=== PATIENT | female | born 1955 | race Caucasian/White ===

== ENCOUNTER 2017-03-19 12:54 | Emergency (ER) | payer OTHER, MEDICAID ==
[~2017-03-19] VITALS: Ht 162.6 cm; Wt 50.0 kg
[~2017-03-19 12:54] MED LIST: ADVAIR DISKUS IN; ALBUTEROL SUL0.083 % IN; ALPRAZOLAM0.5 M2 PO; AMBIEN10 MG PO; CIPRO500 MG PO; COMBIVENT IN; COMBIVENT INH; DILANTIN100 MG OR; FLEXERIL OR; FLOVENT HFA220 MCG IN; LAMICTAL100 M1 PO; LIPITOR20 MG PO; LORTAB 5 OR; LOTENSIN HCT1 TA1 PO; NAPROSYN500 MG OR; NAPROSYN500 MG PO; NICODERM C14 MG/24 H TD; NIFEDIPINE30 MG PO; NORCO1 TA1 PO; ONDANSETRON4 MG OR; PAROXETINE HCL10 MG PO; PAROXETINE10 MG PO; PAROXETINE20 MG PO; PREDNISONE10 MG PO; PREDNISONE20 MG PO; PROAIR HFA IN; PROVENTIL0.083 % IN; SPIRIVA HANDIHALER IN; ZITHROMAX250 MG PO; ZITHROMAX500 MG PO
[2017-03-19 13:36] LABS: HEMATOCRIT 38.1 % (37.0-47.0); HEMOGLOBIN 12.7 g/dl (12.0-16.0); IMMATURE GRANULOCYTES 1.4 % (0.0-1.0); MEAN CELL VOLUME 92.5 fL CALC (80.0-100.0); MEAN CORPUSCULAR HGB 30.8 pG CALC (26.0-32.0); MEAN CORPUSCULAR HGB CONC 33.3 g/L CALC (32.0-36.0); NEUT# 3.58 thou/uL (2.00-7.15); RED BLOOD COUNT 4.12 mill/uL (4.20-5.60); RED CELL DISTRI WIDTH 12.5 % (11.5-15.5)
[2017-03-19 15:00] LABS: AMYLASE 97 u/l (30-110); LIPASE 98 u/l (23-300)
[2017-03-19 15:13] LABS: MYOGLOBIN 33 ng/mL (0 - 62)
[2017-03-19 15:21] LABS: ALBUMIN 4.7 g/dL (3.2-5.0); ALKALINE PHOSPHATASE 107 u/l (38-126); ANION GAP 19 (6-22 (CALC)); BILIRUBIN, TOTAL 0.5 mg/dL (0.0-1.4); BUN 6 mg/dL (7-17); BUN/CREATININE RATIO 13 (12-20 (CALC)); CALCIUM 10.8 mg/dL (8.4-10.2); CARBON DIOXIDE 26 mmol/l (22-30); CHLORIDE 98 mmol/l (95-108); CREATININE 0.4 mg/dL (0.5-1.0); GFR > 60 ML/MIN (>=60 (CALC)); GFR FOR AFR.AMER. > 60 ML/MIN (>=60 (CALC)); GLUCOSE 108 mg/dL (65-105); POTASSIUM 3.6 mmol/l (3.5-5.1); SGOT/AST 31 u/l (14-36); SGPT/ALT 28 u/l (9-52); SODIUM 140 mmol/l (137-146); TOTAL PROTEIN 9.1 g/dL (6.3-8.2)
[2017-03-19 16:16] LABS: URINE BILIRUBIN - DIPSTICK NEGATIVE (NEGATIVE); URINE BLOOD DIPSTICK NEGATIVE (NEGATIVE); URINE CLARITY CLEAR; URINE COLOR YELLOW; URINE GLUCOSE - DIPSTICK NEGATIVE (NEGATIVE); URINE KETONE NEGATIVE (NEGATIVE); URINE LEUK ESTERASE TRACE (NEGATIVE); URINE NITRITE - DIPSTICK NEGATIVE (Negative); URINE PH 7.5 (4.5-8.0); URINE PROTEIN - DIPSTICK NEGATIVE (NEG-TRACE); URINE SPECIFIC GRAVITY 1.015; URINE UROBILINOGEN - DIPSTICK 0.2 E.U./dL (0.2)
[2017-03-19] MEDS ORDERED: ZOFRAN4 MG/TAB PO (18:03)
[2017-03-19 18:05] VITALS: BP 142/70
[2017-03-20] MEDS ORDERED: PHENERGAN25 MG/TAB PO (10:25)
== END 2017-03-19 18:21 | disposition home or self-care (01) | DRG 392 ==
LOC: ED 12:54
PROVIDERS: Emergency Medicine
DX: R11.2 Nausea with vomiting, unspecified (principal); R10.9 Unspecified abdominal pain; Z98.890 Other specified postprocedural states; R94.31 Abnormal electrocardiogram [ECG] [EKG]
CPT/HCPCS: J2060; Q9967

== ENCOUNTER 2017-10-01 12:22 | Inpatient (IN) | payer OTHER, MEDICAID ==
[~2017-10-01] VITALS: Ht 162.6 cm; Wt 48.7 kg
[~2017-10-01 12:22] MED LIST changes: +PHENERGAN25 MG/TAB PO; +ZOFRAN4 MG/TAB PO
--- NOTE | 2017-10-01 12:32 | NUR ---
PATIENT TO ROOM VIA EMS AND PHYSICIAN AT [facility] FOR EVALUATION
[2017-10-01 13:20] LABS: HEMATOCRIT 46.6 % (37.0-47.0); HEMOGLOBIN 15.2 g/dl (12.0-16.0); IMMATURE GRANULOCYTES 1.6 % (0.0-1.0); MEAN CELL VOLUME 95.9 fL CALC (80.0-100.0); MEAN CORPUSCULAR HGB 31.3 pG CALC (26.0-32.0); MEAN CORPUSCULAR HGB CONC 32.6 g/L CALC (32.0-36.0); NEUT# 13.06 thou/uL (2.00-7.15); RED BLOOD COUNT 4.86 mill/uL (4.20-5.60); RED CELL DISTRI WIDTH 12.9 % (11.5-15.5)
[2017-10-01 13:21] LABS: ALBUMIN 4.5 g/dL (3.2-5.0); ALKALINE PHOSPHATASE 96 u/l (38-126); ANION GAP 15 (6-22 (CALC)); BILIRUBIN, TOTAL 0.6 mg/dL (0.0-1.4); BUN 12 mg/dL (7-17); BUN/CREATININE RATIO 25 (12-20 (CALC)); CARBON DIOXIDE 33 mmol/l (22-30); CHLORIDE 96 mmol/l (95-108); CREATININE 0.5 mg/dL (0.5-1.0); GFR > 60 ML/MIN (>=60 (CALC)); GFR FOR AFR.AMER. > 60 ML/MIN (>=60 (CALC)); GLUCOSE 137 mg/dL (65-105); POTASSIUM 4.2 mmol/l (3.5-5.1); SGOT/AST 40 u/l (14-36); SGPT/ALT 45 u/l (9-52); SODIUM 140 mmol/l (137-146); TOTAL PROTEIN 7.4 g/dL (6.3-8.2)
[2017-10-01 13:33] LABS: MYOGLOBIN 27 ng/mL (0 - 62)
--- NOTE | 2017-10-01 13:58 | NUR ---
PT AWARE OF PENDING ADMISSION, RESTS IN THE STRETCHER IN NO ACUTE DISTRESS.
--- NOTE | 2017-10-01 15:47 | NUR ---
PT AWARE OF PENDING ADMISSION AND NEED TO HOLD IN ER UNTIL SHIFT CHANGE. NO DISTRESS NOTED. PT STATES PAIN TO RIGHT SHOULDER IS ZERO AFTER TRAMADOL.
--- NOTE | 2017-10-01 16:37 | NUR ---
GIVEN DR ROCA'S EVAL, PT TO GO TO ICU INSTEAD OF MS.
--- NOTE | 2017-10-01 17:17 | NUR ---
REPORT PROVIDED TO RAMO IN ICU, TO UNIT SOON.
--- NOTE | 2017-10-01 17:29 | NUR ---
Patient received Pneumovax(PPSV-23) IN 10/2011. It is not indicated for her to receive another dose until 67 years of age.
--- NOTE | 2017-10-01 17:30 | NUR ---
PT TAKEN TO ICU-7 WITHOUT INCIDENT.
[2017-10-01 17:45] VITALS: BP 153/76
--- NOTE | 2017-10-01 17:45 | NUR ---
PT ARRIVED TO THE UNIT VIA STRETCHER AND ONE PERSON ASSISTANCE FROM ER. PT HR IS 134. PT HAS VISIBLE SOB, WITH PURSED LIP BREATHING. PT HAS TREMORS R/T MULTIPLE BREATHING TREATMENTS PRIOR TO ARRIVAL. PT IS ALERT AND ORIENTATED. ASSESSMENT PERFORMED. PT ORIENTATED TO ROOM, RIGHTS AND RESPONSIBILITIES. CALL LIGHT WITHIN REACH. INSTRUCTED PT TO CALL FOR ASSISTANCE, PT VERBALIZES UNDERSTANDING. IV INFUSING THROUGH PATENT IV SITE.
--- NOTE | 2017-10-01 17:45 | NUR ---
Patient consented to receive influenza vaccine. Pt admitted for Acute COPD exacerbation with hypoxis, right maxillary sinusitis and suspected pneumonia. Per provider, patient too ill at this time to receive vaccine. Recommends to receive vaccine after resolution of current acute illness.
[2017-10-01 18:00] VITALS: BP 148/69
[2017-10-01 18:15] VITALS: BP 130/70
[2017-10-01 18:30] VITALS: BP 142/75
--- NOTE | 2017-10-01 18:45 | NUR ---
REPORT FROM Maegan RIOS RN. ASSUMED PT. CARE.
--- NOTE | 2017-10-01 20:05 | NUR ---
PT. FOUND AWAKE, ALERT, ORIENTED X 3. SKIN WARM AND DRY. RESPS EVEN, SHALLOW, UNLABORED. SPO2 IS 98% ON 2L VIA HUMIDIFIED NASAL CANNULA. FAMILY OUT FROM BEDSIDE AT THIS TIME. HR 120'S SINUS TACH. BP STABLE. VSS. CALL LIGHT WITHIN REACH. WILL CONTINUE TO MONITOR.
[2017-10-01 21:00] VITALS: BP 125/78
--- NOTE | 2017-10-01 21:15 | NUR ---
PT. MEDICATED PER PHYSICIAN ORDERS. NO COUGHING EPISODES NOTED AT THIS TIME. SPO2 REMAINS STABLE ON 2L NC. PT. STATES SHE BELIEVES THE STEROIDS HAVE HELPED. STATES MUCH IMPROVED WORK OF BREATHING. LUNG SOUNDS CLEAR, BUT SLIGHTLY DIMINISHED AT THIS TIME BILAT TO ALL LUNG CAI. WILL CONTINUE TO MONITOR.
[2017-10-01 23:00] VITALS: BP 113/59
--- NOTE | 2017-10-01 23:15 | NUR ---
PT. RESTING WITH EYES CLOSED. CALL LIGHT REMAINS WITHIN REACH. STABLE. VSS. NO DISTRESS NOTED. WILL CONTINUE TO ASSESS.
[2017-10-02] VITALS (9 sets, daily range): BP systolic 108–142; BP diastolic 64–82
--- NOTE | 2017-10-02 00:37 | NUR ---
PT. WATCHING TELEVISION AT THIS TIME IN NO DISTRESS. MEDICATED PER PHYSICIAN ORDERS. REMAINS SINUS TACH ON THE MONITOR 106. BP STABLE. SPO2 IS 95% ON 2L NC.
--- NOTE | 2017-10-02 02:59 | NUR ---
PT. RESTING ON LT. SIDE AT THIS TIME. RESPS SHALLOW WITH EXPIRATORY WHEEZES NOTED. HR IMPROVED. SR 99 AT THIS TIME. BP STABLE AT 130/73. VOICES NO COMPLAINTS OR NEEDS AT THIS TIME. CALL LIGHT REMAINS WITHIN REACH.
--- NOTE | 2017-10-02 04:30 | NUR ---
PT. AROUSABLE TO LIGHT VERBAL STIMULI. LAB AT BEDSIDE TO DRAW PATIENT. PT. STATES WITH MILD PAIN 3/10 ASKING FOR PAIN MEDICATION. PT. ALSO MEDICATED WITH ANTITUSSIVE PER HER REQUEST. REMAINS STABLE AT THIS TIME. VSS. SPO2 IS 94% ON 2L NC. CALL LIGHT REMAINS WITHIN REACH. PT. UPDATED ON PLAN OF CARE AND NEXT MED DOSING.
[2017-10-02 04:39] LABS: HEMATOCRIT 40.7 % (37.0-47.0); HEMOGLOBIN 13.3 g/dl (12.0-16.0); MEAN CELL VOLUME 95.3 fL CALC (80.0-100.0); MEAN CORPUSCULAR HGB 31.1 pG CALC (26.0-32.0); MEAN CORPUSCULAR HGB CONC 32.7 g/L CALC (32.0-36.0); RED BLOOD COUNT 4.27 mill/uL (4.20-5.60); RED CELL DISTRI WIDTH 12.9 % (11.5-15.5)
[2017-10-02 04:54] LABS: ANION GAP 13 (6-22 (CALC)); BUN 18 mg/dL (7-17); BUN/CREATININE RATIO 39 (12-20 (CALC)); CALCIUM 10.5 mg/dL (8.4-10.2); CARBON DIOXIDE 34 mmol/l (22-30); CHLORIDE 96 mmol/l (95-108); CREATININE 0.5 mg/dL (0.5-1.0); GFR > 60 ML/MIN (>=60 (CALC)); GFR FOR AFR.AMER. > 60 ML/MIN (>=60 (CALC)); GLUCOSE 157 mg/dL (65-105); POTASSIUM 4.3 mmol/l (3.5-5.1); SODIUM 139 mmol/l (137-146)
--- NOTE | 2017-10-02 06:05 | NUR ---
PT. TO BEDSIDE COMMODE AND BACK TO BED. PT. SEVERELY DYSPNEIC. SPO2 DROPPED TO MID 70'S, HR ELEVATED TO 155, AND BP INCREASED TO 200/110. APPCOX 10 MINUTES AFTER BEING BACK IN BED, HR DECREASED TO 120, AND BP DECREASED TO 150/90. PT. ENCOURAGED TO TAKE BREATHS IN THROUGH THE NOSE AND OUT THROUGH THE MOUTH. SPO2 IS 91% APPROX 10 MINUTES AFTER BEING ASSISTED BACK TO BED.
--- NOTE | 2017-10-02 06:50 | NUR ---
DAUGHTER AT BS, HOME MEDICATON LAMICTAL BROUGHT IN, LABELED AND HOME MEDICATION SHEET FILLED OUT. WILL NOTIFY PHARMACY WHEN DEPARTMENT OPEN.
--- NOTE | 2017-10-02 07:20 | NUR ---
DIETARY NOTIFIED OF DIET ORDER.
--- NOTE | 2017-10-02 07:29 | NUR ---
PT EASILY AWAKENS WITH VOICE. ONCE AWAKE HEART RATE GOES FROM 91-120, PT HAS VISIBLE TREMORS AND INCREASED SOB. DISCUSSION OF PLAN OF CARE GONE OVER. PT URGED TO RESTRICT MOVEMENT AND REST. DISCUSSED POSSIBILITY OF AGUILAR CATHETER, WILL ASK MD, WHEN HE ARRIVES TO UNIT. PT STATES UNDERSTANDING OF CALL LIGHT, AND BED REST FOR NOW. CALL LIGHT WITHIN REACH, INSTRUCTED PT TO CALL FOR ASSISTANCE, STATES UNDERSTANDING.
--- NOTE | 2017-10-02 07:45 | NUR ---
DR. ROCA NOTIFIED, OF SEVERE SEPSIS RISK ON INTERVENTION SCREEN. NO ORDERS GIVEN AT THIS TIME, WILL CONTINUE TO MONITOR, AND NOTIFY IF CHANGES OCCUR.
--- NOTE | 2017-10-02 08:30 | NUR ---
VISITOR IN TO SEE PT AT THIS TIME. PT SAFETY REVIEWED, INSTRUCTED PT TO CALL FOR ASSISTANCE, STATES UNDERSTANDING.
--- NOTE | 2017-10-02 09:35 | NUR ---
AM MEDICATIONS GIVEN AT THIS TIME. PT REFUSING TO HAVE LOVENOX INJECTION. POSSIBLE RISK FOR DVT/CLOT DEVELOPMENT EXPLAINED. PT STATES "DANIEL BEEN OFFERED THOSE BEFORE, AND IM NOT INTERESTED." WILL CONTINUE TO RE-EDUCTATE IF POSSIBLE.
--- NOTE | 2017-10-02 11:30 | NUR ---
LUNCH TRAY DELIVERED TO PT. PT IS RESTIG ON RIGHT SIDE WITH EYES CLOSED. EASILY AWAKENS. TRAY SAT DOWN, PT EASILY AWAKENS WITH QUIET VERBAL COMMANDS. PT STATES "IF YOU COULD JUST LEAVE MY TRAY, IM GOING TO KEEP RESTING." CALL LIGHT WITHIN REACH, DOOR CLOSED. WILL CONTINUE TO MONITOR.
--- NOTE | 2017-10-02 12:05 | NUR ---
PT COMPLIANT WITH USE OF BED BALL. AT REST HR IS 100-105, WITH MINIMAL EXERTION WITH BED BALL, PT HR IS 135-150. PT ALSO REQUESTS THE ASSISTANCE OF FAMILY INSTEAD OF STAFF FOR PRIVACY PURPOSES. RESPECTFULLY GRANTED. AFTER USE OF BEDPAN, PT DOES HAVE SOB, WITH UPPER EXTREMITY TREMORS, USING PURSED LIP BREATHING
--- NOTE | 2017-10-02 13:08 | NUR ---
PT GIVEN SOLU-MEDROL WITH XANAX. PT INFORMED OF TRANSFER TO MED-SURG ROOM 274. STATES UNDERSTANDING, VOICES NO CONCERNS AT THIS TIME. WILL CONTINUE TO UPDATE.
--- NOTE | 2017-10-02 15:47 | NUR ---
PT AWAKE WATCHING TV IN BED, INQUIRING ABOUT TRANSFER TO FLOOR. STATES "ID LIKE TO MAKE A MOVE WHILE MY XANAX IS STILL WORKING WELL, IT DOESNT TAKE MUCH TO FOR ME TO GET WORKED UP." WILL ATTEMPT TO CALL REPORT AT THIS TIME.
--- NOTE | 2017-10-02 15:53 | NUR ---
PT INFORMED OF DELAY OF TRANSFER TO MEDICAL FLOOR, STATES UNDERSTANDING. DENIES NEEDS OR CONCERNS, GIVEN PORTABLE PHONE FOR TELEPHONE CALL. CALL LIGHT WITHIN REACH. INSTRUCTED PT TO CALL FOR ASSISTANCE. STATES UNDERSTANDING
--- NOTE | 2017-10-02 16:39 | NUR ---
ROBITUSSIN WITH CODEINE PROVIDED WITH ABX THERAPY. PT HAVING COUGHING "SPELL." SPO2 DROPS TO 75% AND HR INCREASES TO 145. ONCE COUGHING/SPASM OVER. SPO2 QUICKLY RISES TO TODAYS BASELINE OF 92% HR IS 107.
--- NOTE | 2017-10-02 16:40 | NUR ---
ZITHROMAX INFUSING AT THIS TIME, IV SITE PATENT. CALL LIGHT WITHIN REACH. INSTRUCTED PT TO CALL FOR ASSISTANCE, STATES UNDERSTANDING.
--- NOTE | 2017-10-02 19:00 | NUR ---
REPORT FROM KIMBERLEE RALPH. ASSUMED PT. CARE.
--- NOTE | 2017-10-02 20:15 | NUR ---
PT. FOUND AWAKE, ALERT, ORIENTED X 3. SKIN WARM AND DRY. AFEBRILE. PT. STATES SHE IS FEELING BETTER THIS EVENING. STATES CONTINUES WITH MODERATE-SEVERE EXERTIONAL DYSPNEA. HR AND BP STABLE AT THIS TIME. PT. WITH CLEAR/DIMINISHED LUNG SOUNDS THROUGHOUT. DISTIL PULSES PRESENTS THROUGHOUT. SINUS RHYTHM AT THIS TIME. DENIES COMPLAINTS OR NEEDS. WILL MEDICATE ORDERED. CALL LIGHT REMAINS WITHIN REACH.
--- NOTE | 2017-10-02 23:15 | NUR ---
PT. TO BEDSIDE COMMODE AND THEN BACK TO BED. MODERATE DYSPNEA ON EXERTION. HR ELEVATED TO 110'S. PT. AMBULATED WITHOUT ASSISTANCE. CALL LIGHT REMAINS WITHIN REACH.
[2017-10-03] VITALS (7 sets, daily range): BP systolic 115–140; BP diastolic 60–82
--- NOTE | 2017-10-03 02:56 | NUR ---
PT. RESTING IN BED IN NO DISTRESS. SINUS RHYTHM AT 88. SPO2 IS 93% ON 2L NC. RR OF 25. CALL LIGHT REMAINS WITHIN REACH.
--- NOTE | 2017-10-03 03:30 | NUR ---
PT. WITH COUGHING EPISODES AT THIS TIME. AWAITING CARDINAL TO PROFILE NEW ORDERS. RT CALLED FOR NEB TREATMENT. WILL CONTINUE TO MONITOR.
--- NOTE | 2017-10-03 07:25 | NUR ---
PT RESTING IN BED, WITH HOB ELEVATED, AM ASSESSMENT COMPLETED, SEE INTERVENTIONS, PT ADMITS TO BEING O2 DEPENDENT AT HOME FOR 3-4 YEARS, ALSO ADMITS TO HAVING EXERTIONAL SOB AT HOME WELL, LUNGS ARED VERY DMINSHED WITH EXPIRATORY WHEEZES HEARD THROUGH OUT, O2 ON AT 2L, PT TOLERATING W/O INCINDENT, CURRENTLY HAS VISITORS AT BEDSIDE, OOB EARLIER TO VOID AND TOLERATED/RECOVERY IMPROVED PER REPORT, (HAD BEEN USING BED BALL RELATED TO DEGREE OF SOB AND PROLONGED RECOVERY TIME) SKIN WARM DRY AND INTACT WITH NO BREAKDOWN NOTED, PT STATES SHE HAS HAD A POOR APPETITE, RELATED TO SOB AND "JUST NOT FEELING LIKE EATING" STATES ITS NOT NEW, SAFETY MEASURES REINFORCED, OFFERS NO COMPLAINTS, ENCOURAGED TO CALL FOR ANY NEEDED ASSISTANCE, VERBALIZES UNDERSTANDING. WILL CONTINUE TO MONITOR
--- NOTE | 2017-10-03 08:48 | NUR ---
PT RESTING IN BED, NO CHANGES NOTED, HR FLUCUATES BECOMES MILDLY TACHYCARDIC WITH MINIMAL EXERTION, RECOVERY PERIOD TIMES ARE IMPROVING SLOWLY, TOLERATING STEROID THERAPY W/O INCINDENT, SET UP ASSIST PROVIDED FOR AM MEAL WITH POOR INTAKE NOTED, WILL CONTINUE TO MONITOR
--- NOTE | 2017-10-03 10:19 | NUR ---
AM MEDICATIONS TAKEN EARLIER W/O INCIDENT, REQUESTED CLEAN GOWN CLEAN UP/ADL CARE OFFERED, PT STATES NO MY IS GONNA COME IN LATER AND HELP ME GET CLEANED UP, CALL MURILLO WITHIN REACH, NEB TREATMENT PROVIDED EARLIER BY RT. WILL CONTINUE TO MONITOR
--- NOTE | 2017-10-03 11:25 | NUR ---
AM/ADL CARE PROVIDED WITH SPOUSAL ASSIST (PER PT REQUEST) REFUSES LINEN CHANGE AT THIS TIME DID ASSIST WITH GOWN CHANGE, PT RESTING HR CURRENTLY 139 WITH RECENT EXERTION, ENCOURGAED TO REST/RECOVER, WILL CONTINUE TO MONITOR
--- NOTE | 2017-10-03 16:37 | NUR ---
MEDICATED FOR COUGH, REPORT CALLED TO TOMMIE MOHAN ON MED SURG, ROOM 267 ASSIGNED,
--- NOTE | 2017-10-03 16:44 | NUR ---
PT ARRIVED TO FLOOR VIA BED. PT DENIES PAIN. SOB NOTED WITH MINIMAL EXERTION.PT ORIENTED TO ROOM AND EQUIPMENT. PLAN OF CARE DISCUSSED. REPORTING OF CONCERNS ENCOURAGED. FALL PRECAUTIONS REINFORCED. CALL LIGHT REVIEWED AND IN REACH. PT STATES UNDERSTANDING.
--- NOTE | 2017-10-03 19:00 | NUR ---
RECEIVED CHANGE OF SHIFT REPORT FROM KIMBERLEE REILLY. PATIENT LYING IN BED AND APPEARS NOT TO BE IN ANY APPARENT ACUTE DISTRESS. WILL CONTINUE TO MONITOR.
--- NOTE | 2017-10-04 | NUR ---
PATIENT RESTING QUIETLY IN BED. NO APPARENT ACUTE DISTRESS NOTED. WILL CONTINUE TO MONITOR.
[2017-10-04 00:15] VITALS: BP 117/71
[2017-10-04 04:00] VITALS: BP 126/78
--- NOTE | 2017-10-04 04:00 | NUR ---
NO APPARENT ACUTE CHANGES NOTED IN PATIENT'S CONDITION.
[2017-10-04 07:42] VITALS: BP 152/75
[2017-10-04 07:50] LABS: HEMOGLOBIN 13.3 g/dl (12.0-16.0); MEAN CORPUSCULAR HGB 31.1 pG CALC (26.0-32.0); MEAN CORPUSCULAR HGB CONC 32.4 g/L CALC (32.0-36.0); RED BLOOD COUNT 4.27 mill/uL (4.20-5.60); RED CELL DISTRI WIDTH 12.9 % (11.5-15.5)
[2017-10-04 08:02] LABS: ANION GAP 11 (6-22 (CALC)); BUN 16 mg/dL (7-17); BUN/CREATININE RATIO 37 (12-20 (CALC)); CALCIUM 9.9 mg/dL (8.4-10.2); CARBON DIOXIDE 34 mmol/l (22-30); CHLORIDE 99 mmol/l (95-108); CREATININE 0.4 mg/dL (0.5-1.0); GFR > 60 ML/MIN (>=60 (CALC)); GFR FOR AFR.AMER. > 60 ML/MIN (>=60 (CALC)); GLUCOSE 147 mg/dL (65-105); MAGNESIUM 2.4 mg/dL (1.6-2.3); SODIUM 139 mmol/l (137-146)
--- NOTE | 2017-10-04 09:10 | NUR ---
PT MEDICATED ORDERED FOR COUGH AND BACK PAIN 05/28; TELE MONITOR IN PLACE; PT SOB WITH EXERTION, PLANT OPERATIONS ENGINEER COUGH NOTED; CALL MURILLO WITHIN REACH; WILL CONTINUE TO MONITOR.
[2017-10-04 10:36] LABS: URINE BILIRUBIN - DIPSTICK NEGATIVE (NEGATIVE); URINE BLOOD DIPSTICK NEGATIVE (NEGATIVE); URINE COLOR YELLOW; URINE GLUCOSE - DIPSTICK NEGATIVE (NEGATIVE); URINE KETONE NEGATIVE (NEGATIVE); URINE LEUK ESTERASE NEGATIVE (NEGATIVE); URINE NITRITE - DIPSTICK NEGATIVE (Negative); URINE PH 6.5 (4.5-8.0); URINE PROTEIN - DIPSTICK NEGATIVE (NEG-TRACE); URINE UROBILINOGEN - DIPSTICK 0.2 E.U./dL (0.2)
[2017-10-04 10:39] LABS: URINE CLARITY CLEAR
--- NOTE | 2017-10-04 12:45 | NUR ---
PT TOLERATED DIET WELL; NO COMPLAINTS OF PAIN OR DISCOMFORT VOICED; CALL MURILLO WITHIN REACH; WILL CONTINUE TO MONITOR.
[2017-10-04 14:43] VITALS: BP 171/77
--- NOTE | 2017-10-04 14:46 | NUR ---
PT C/O ANXIETY AND NOT ABLE TO BREATH; PT WORKING SECOND HAND COUGH; O2 2L VIA NC; DREW PATEL IN TO ASSESS PT; CALL MURILLO WITHIN REACH; WILL CONTINUE TO MONITOR.
--- NOTE | 2017-10-04 18:30 | NUR ---
PT MEDICATE ORDERED FOR C/O RAMON 05/28; IV SITE FLUSHES WELL; CALL MURILLO WITHIN REACH; WILL CONTINUE TO MONITOR.
[2017-10-04 19:13] VITALS: BP 139/80
--- NOTE | 2017-10-04 20:00 | NUR ---
PT IN BED A/O X3, RESPIRATIONS NON LABORED ON O2 @2L VIA NC, ADMITS TO PAIN TO LOWER ABDOMEN HAS DECRESED SINCE LAST MEDICATED WITH ULTRAM. PO FLUIDS IN REACH, WILL CONTINUE TO MONITOR.
[2017-10-04 23:38] VITALS: BP 136/77
--- NOTE | 2017-10-05 00:20 | NUR ---
MEDICATED WITH ULTRAM FOR C/O LLQ PAIN 5/10 WHEN COUGHING. RESPIRATIONS EVEN AND UNALBORED. CALL LIGHT IN REACH.
--- NOTE | 2017-10-05 02:13 | NUR ---
PT CALLED REQUESTING BREATHING TREATMENT FOR SOB AFTER A COUGHING SPELL, IS SOB, ENCOURAGED TO CONCENTRATING ON TAKING DEEP BREATHS, O2 @2L VIA NC IN PLACE, O2 SAT 97%, BREATHING TREATMENT PROVIDED BY RT. WILL CONTINUE TO MONITOR.
[2017-10-05 05:01] VITALS: BP 145/86
[2017-10-05 06:23] LABS: HEMATOCRIT 40.4 % (37.0-47.0); HEMOGLOBIN 13.2 g/dl (12.0-16.0); IMMATURE GRANULOCYTES 1.6 % (0.0-1.0); MEAN CELL VOLUME 96.4 fL CALC (80.0-100.0); MEAN CORPUSCULAR HGB 31.5 pG CALC (26.0-32.0); MEAN CORPUSCULAR HGB CONC 32.7 g/L CALC (32.0-36.0); NEUT# 13.78 thou/uL (2.00-7.15); RED BLOOD COUNT 4.19 mill/uL (4.20-5.60); RED CELL DISTRI WIDTH 12.7 % (11.5-15.5)
[2017-10-05 06:39] LABS: ANION GAP 12 (6-22 (CALC)); BUN 15 mg/dL (7-17); BUN/CREATININE RATIO 36 (12-20 (CALC)); CALCIUM 9.8 mg/dL (8.4-10.2); CARBON DIOXIDE 34 mmol/l (22-30); CHLORIDE 96 mmol/l (95-108); CREATININE 0.4 mg/dL (0.5-1.0); GFR > 60 ML/MIN (>=60 (CALC)); GFR FOR AFR.AMER. > 60 ML/MIN (>=60 (CALC)); GLUCOSE 159 mg/dL (65-105); MAGNESIUM 2.3 mg/dL (1.6-2.3); POTASSIUM 4.2 mmol/l (3.5-5.1); SODIUM 138 mmol/l (137-146)
[2017-10-05 07:45] VITALS: BP 137/88
[2017-10-05 11:06] VITALS: BP 139/79
--- NOTE | 2017-10-05 11:20 | NUR ---
PT MEDICATED ORDERED FOR C/O RIB PAIN; CALL MURILLO WITHIN REACH; WILL CONTINUE TO MONITOR.
--- NOTE | 2017-10-05 15:20 | NUR ---
PT MEDICATED ORDERED FOR C/O COUGH AND RIB PAIN 06/28; O2 2L VIA NC; NO OTHER COMPLAINTS VOICED; CALL MURILLO WITHIN REACH; WILL CONTINUE TO MONITOR.
[2017-10-05 15:32] VITALS: BP 145/62
--- NOTE | 2017-10-05 16:02 | NUR ---
Visited pt rm for daily rounding. At interview, pt was trembling and reading news papers. She said it was normal after getting out of shower. Pt did not have any questions or concerns regarding her medications.
--- NOTE | 2017-10-05 16:04 | NUR ---
Visited pt rm for daily rounding. Pt was crying at time of visit and refused for an interview. Informed her attending.
--- NOTE | 2017-10-05 18:26 | NUR ---
PT WITH VISTORS AT BEDSIDE; NO COMPLAINTS VOICED; CALL MURILLO WITHIN REACH; WILL CONTINUE TO MONITOR
[2017-10-05 18:48] VITALS: BP 181/87
--- NOTE | 2017-10-05 19:55 | NUR ---
ASSESSMENT IS COMPLETED: ON PT SHE IS RELAXING IN BED WITH NO DISTRESS NOTED. IV SITE IS FREE FROM REDNESS OR EDEMA. CONTINUE TO OBSERVE AN DMONITOR.
[2017-10-06 00:09] VITALS: BP 120/69
--- NOTE | 2017-10-06 00:15 | NUR ---
PT IS RELAXING IN BED WITH NO DISTRESS NOTED. IV SITE IS FREE FROM REDNESS OR EDEMA.
[2017-10-06 03:20] VITALS: BP 173/99
--- NOTE | 2017-10-06 04:15 | NUR ---
PT IS RELAXING IN BED WITH NO DISTRESS NOTED. IV SITE IS FREE FROM REDNESS OR EDEMA.
--- NOTE | 2017-10-06 07:00 | NUR ---
BEDSIDE REPORT RECIEVED FROM ABDIRAHMAN HALE. PT AWAKE UPON ENTRY AND RESTING IN THE SUPINE POSITION. PT HAS NO COMPLAINTS OF PAIN. EXERTIONAL SHORTNESS OF BREATH NOTED WHILE TALKING. O2 IN PLACE. WILL CONTINUE TO MONITOR. SAFETY PRECAUTIONS REINFORCED. CALL LIGHT WITHIN REACH.
--- NOTE | 2017-10-06 08:30 | NUR ---
PT RESTING SUPINE IN BED WATCHING TV. LEFT SHOULDER IN SLING, DRESSING CDI. CAPILLARY REFILL <3. PAIN TO LEFT SHOULDER REPORTED, MEDICATED WITH PERCOCET. WILL CONTINUE TO MONITOR. CALL LIGHT WITHIN REACH.
[2017-10-06 08:50] VITALS: BP 143/80
[2017-10-06 15:05] VITALS: BP 158/87
--- NOTE | 2017-10-06 17:50 | NUR ---
RT IN ROOM WITH PT.
[2017-10-06 18:30] VITALS: BP 155/77
--- NOTE | 2017-10-06 18:49 | NUR ---
NO ACUTE CHANGES IN PT CONDITION NOTED. IV PATENT NO SWELLING OR REDNESS NOTED. SAFETY PRECAUTIONS REINFORCED. CALL LIGHT WITHIN REACH.
--- NOTE | 2017-10-06 20:20 | NUR ---
PT IN BED WITH FAMILY AT HER SIDE, A/O X3, O2 @2L VIA CN, RESPIRAITONS 24 AND BECOMES SOB WHEN TALKING. BSC AT BED SIDE. VOICES NO CONCERNS AT THIS TIME, WILL CONTINUE TO MONITOR.
--- NOTE | 2017-10-06 23:10 | NUR ---
PT RESTING WITH EYES CLOSED, RESPIRATIONS EVEN AND UNLABORED ON O2 @2L VIA NC, O2 SAT 97%. CALL LIGHT IN REACH.
--- NOTE | 2017-10-07 00:09 | NUR ---
PT CALLING FOR BREATHING TREATMENT, IS VERY ANXIOUS, PROVIDED WITH SCHEDULED XANAX AT THIS TIME, DUONEB PROVIDED BY RT. O2 SAT 93% ON O2 @2L VIA NC AT THIS TIME.
--- NOTE | 2017-10-07 02:46 | NUR ---
IN BED WITH EYES CLOSED, RESPIRATIONS EVEN AND UNLABORED.
[2017-10-07 04:05] VITALS: BP 133/71
--- NOTE | 2017-10-07 07:00 | NUR ---
REPORT RECIEVED FROM ABDIRAHMAN CRUZ. PT SLEEPING ON ENTRY. NO SIGNS OF DISTRESS NOTED. RESP EVEN AND UNLABORED. O2 IN PLACE. SAFETY PRECAUTIONS IN PLACE. CALL LIGHT WITHIN REACH. WILL CONTINUE TO MONITOR.
[2017-10-07 07:34] VITALS: BP 96/55
--- NOTE | 2017-10-07 12:29 | NUR ---
PT RESTING IN BED WATCHING TV. FAMILY AT BEDSIDE. DR BUCKLEY IN, PLAN OF CARE UPDATED. PT HAS NO COMPLAINTS OF PAIN AT THIS TIME. WILL CONTINUE TO MONITOR. CALL LIGHT WITHIN REACH.
[2017-10-07 15:35] VITALS: BP 125/75
--- NOTE | 2017-10-07 17:35 | NUR ---
PT RESTING IN BED EATING DINNER. PT HAS NO COMPLAINTS OF PAIN. PT STATES " I FEEL THE BEST THAT DANIEL BEEN RIGHT NOW" SAFETY PRECAUTIONS REINFORCED. WILL CONTINUE TO MONITOR. CALL LIGHT WITHIN REACH.
[2017-10-07 19:23] VITALS: BP 148/54
--- NOTE | 2017-10-07 20:22 | NUR ---
PT IN IN BED ON RIGHT SIDE WITH EYES CLOSED, O2 @2L VIA NC, RESPIRATIONS 24. WILL CONTINUE TO MONITOR. CALL LIGHT IN REACH.
--- NOTE | 2017-10-07 21:44 | NUR ---
C/O RIGHT SHOULDER PAIN 5/10, MEDICATED WITH MORPHINE IV PER PT REQUEST. RESPIRATIONS 24.
--- NOTE | 2017-10-08 00:28 | NUR ---
CALLING FOR BREATHING TREATMENT, RESPIRATTIONS LABORED SCHEDULED XANAX PROVIDED AT THIS TIME. O2 SAT 93%.
--- NOTE | 2017-10-08 03:35 | NUR ---
PT CALLING FOR ASSISTANCE IS VERY ANXIOUS, C/O ANXIETY, DIZZINESS, RIGHT SHOULDER PAIN AND SORE THROAT STATES SHE ALMOST FELL WHEN TRYING TO GET TO BSC, RESPIRATIONS LABORED. MORPHINE 2MG IV AND GUAIFENESIN GIVEN AT THIS TIME. O2 SAT 92% ON O2 @2L VIA NC. ENCOURAGED TO USE CALL LIGHT FOR ASSISTANCE WHEN OOB.
[2017-10-08 03:42] VITALS: BP 132/65
[2017-10-08 05:39] LABS: BUN 16 mg/dL (7-17); BUN/CREATININE RATIO 38 (12-20 (CALC)); CALCIUM 9.6 mg/dL (8.4-10.2); CHLORIDE 94 mmol/l (95-108); CREATININE 0.4 mg/dL (0.5-1.0); GFR > 60 ML/MIN (>=60 (CALC)); GFR FOR AFR.AMER. > 60 ML/MIN (>=60 (CALC)); GLUCOSE 132 mg/dL (65-105); POTASSIUM 4.2 mmol/l (3.5-5.1); SODIUM 140 mmol/l (137-146)
[2017-10-08 05:45] LABS: ANION GAP 11 (6-22 (CALC)); CARBON DIOXIDE 39 mmol/l (22-30)
--- NOTE | 2017-10-08 06:00 | NUR ---
MEDICATED WITH SCHEDULED XANAX, NOTICED TO HAVE TREMORS THIS MORNING.
--- NOTE | 2017-10-08 07:18 | NUR ---
PT.IS IN BED, AWAKENED UPON US ENTERING ROOM, DENIES ANY PAIN OR NEEDS AT THIS TIME. BEDSIDE REPORT RECEIVED FROM NIGHT NURSE. CALL LIGHT IS AT SIDE AND PT.HAS BEEN ENCOURAGED TO CALL IF ANY NEEDS ARISE.
[2017-10-08 07:47] VITALS: BP 114/67
--- NOTE | 2017-10-08 12:53 | NUR ---
PT.MEDICATED FOR ANXIETY AND PAIN 05/28. PT.INSTRUCTED TO CALL IF ANY OTHER NEEDS ARISE. SHE DENIES ANYTHING NEEDED AT THIS TIME. CALL LIGHT W/IN REACH.
--- NOTE | 2017-10-08 14:15 | NUR ---
PT.SLEEPING AT THIS TIME. CALL LIGHT IS W/IN REACH, BREATHING IS SOMEWHAT LABORED, RESPIRATORY WAS UP W/DUONEB TREATMENT JUST PRIOR.
[2017-10-08 15:15] VITALS: BP 117/72
--- NOTE | 2017-10-08 16:25 | NUR ---
PT.IS SLEEPING AT THIS TIME. CALL LIGHT W/IN REACH
--- NOTE | 2017-10-08 16:26 | NUR ---
Visited patient during daily rounding. Patient stated that she was shivering and was experiencing difficulty breathing. Patient seemed visibly uncomfortable. Informed the nurse. The nurse came and spoke to the patient and raised the head of the bed to help her breahte.
--- NOTE | 2017-10-08 18:20 | NUR ---
PT.MEDICATED FOR ANXIETY, PT.REPORTS PAIN 6/10 MORPHINE REASSESSMENT. FAMILY AT BS, DAUGHTER IS SITTING ON BED AT PT.SIDE ASSISTING HER EAT. DENIES ANY IV SITE IS STILL WORKING, BUT APPEARS A LITTLE BLOODY AND SLOW TO FLUSH. I TAPED SITE DOWN IN AN ATTEMPT TO SAVE IV SITE. IT DID FLUSH AND PT.DENIES ANY BURNING AT SITE. CALL LIGHT W/IN REACH AND PT.AND FAMILY INSTRUCTED TO CALL IF SHE NEEDS ANY ASSISTANCE
[2017-10-08 19:35] VITALS: BP 132/65
--- NOTE | 2017-10-08 20:00 | NUR ---
pt awake in bed; daughter at bedside; assessment completed at this time; pt alert and oriented; complaints of pain/medicated with ultram as per orders; no n/v noted; resp labored; lungs diminished throughout; skin color wnl; o2 per nc; sob noted with minimal exertion; hr reg; strong pulses; no edema noted; abd soft with bs present; pt denies bm/states last bm "a while ago"; deny feelings of constipation; voiding without pain or burning/bsc; #24 in lw saline locked; no redness or edema noted at site; ecchymosis noted to bue; repositioning encouraged; pm/prn meds explained; call light within reach; will continue to monitor
--- NOTE | 2017-10-08 21:00 | NUR ---
awake in chair; bath per daughter; complete linen change; pt assisted back to bed; #22 started in rw x1 attempt; pm meds explained and administered; #20 removed from lw d/t leaking when flushed; pt appears comfortable; denies additional needs; call light within reach; will continue to monitor
--- NOTE | 2017-10-08 22:30 | NUR ---
resting with eyes closed; resp unlabored; call light within reach; will continue to monitor
--- NOTE | 2017-10-09 00:09 | NUR ---
resting in bed with eyes closed; no distress noted; resp even and unlabored; awakened for meds; deny needs for neb tx; iv intact; call light within reach; will continue to monitor
--- NOTE | 2017-10-09 02:05 | NUR ---
resting with eyes closed; resp unlabored; o2 per nc; will continue to monitor
--- NOTE | 2017-10-09 04:01 | NUR ---
awake for vs; no distress noted; pt offers no complaints; denies pain or resp difficulty at present; denies needs for neb tx; iv intact; o2 per nc; call light within reach; will continue to monitor
[2017-10-09 04:07] VITALS: BP 106/66
--- NOTE | 2017-10-09 06:02 | NUR ---
awake in bed receiving neb tx; complaints of pain; medicated with morphine as per orders; iv flushed and patent; no redness or edema noted at site; o2 per nc; denies additional needs; bed in lowest position; call light within reach
--- NOTE | 2017-10-09 07:10 | NUR ---
PT.IS IN BED SLEEPING AT THIS TIME, NO S/S OF DISTRESS AT THIS TIME. CALL LIGHT IS W/IN REACH. WILL FOLLOW-UP WITH V/S AND MORNING MEDICATIONS.
[2017-10-09 07:35] VITALS: BP 141/77
--- NOTE | 2017-10-09 07:35 | NUR ---
V/S ASSESSED. PT.IS AWAKE AND SITTING UPRIGHT IN BED JUST STARTING TO EAT HER BREAKFAST. DAUGHTER JUST ARRIVED AT BEDSIDE AND IS ATTEMPTING TO ASSIST HER MOTHER EATING HER BREAKFAST. PT.REQUESTS A BREATHING TREATMENT FROM RESPIRATORY WHEN SHE FINISHES EATING. CALL LIGHT IS AT BEDSIDE AND BOTH ARE INSTRUCTED TO CALL IF THEY HAVE ANY NEEDS ARISE AT ALL. PT.HAS BEEN MEDICATED FOR PAIN AND DENIES PAIN AT THIS TIME.
--- NOTE | 2017-10-09 12:50 | NUR ---
PT.MEDICATED FOR PAIN 10/10 IN RIGHT BACK. DAUGHTER WAS AT BEDSIDE ATTEMPTING TO GET HER MOM TO EAT. PT.DENIES EATING AT THIS TIME, INSTRUCTED DAUGHTER TO GO BACK TO WORK. I LEFT ROOM PT.REQUESTED TO BE LEFT ALONE BY ANY VISITORS, I TOLD HER THAT I WOULD PLACE SIGN ON DOOR FOR DO NOT DISTURB AND FOR VISITOR TO PLEASE SEE THE NURSES STATION. SHE THANKED ME AND STATED, "I JUST WANT TO REST FOR A WHILE." CALL LIGHT IS AT HER SIDE W/IN REACH
[2017-10-09 15:05] VITALS: BP 136/73
--- NOTE | 2017-10-09 15:18 | NUR ---
PT.REQUESTED RESPIRATORY TREATMENT, RESPIRATORY WAS PAGED. ED INFORMED THAT RESPIRATORY IS W/ED EMERGENCY PT AT THIS TIME. DUO-NEB TREATMENT ADMINISTERED
--- NOTE | 2017-10-09 16:26 | NUR ---
Marni. CALLED TO SEE IF PT.IS ABLE TO DO THERAPY. I INFORMED PT.THAT Marni. WAS COMING UP TO WORK WITH HER TO GET STRENGTH BACK. I AM WAITING ON SUPPOSITORY DULCOLAX FROM PHARMACY.
--- NOTE | 2017-10-09 16:52 | NUR ---
Marni. HAS FINISHED WORKING W/PT AND PT.NOW HAS VISITORS AT THIS TIME. I AM WAITING FOR VISITORS TO LEAVE TO ADMINISTERED SUPPOSITORY.
--- NOTE | 2017-10-09 17:10 | NUR ---
PATIENT SITTING ON EDGE OF BED (EOB). HAS JUST HAD PAIN MEDICATION AND BREATHING TX. SHE STATES THAT SHE HAS ANIETY AND THEN CAN'T BREATHE. SHE EXPRESSES FEAR OF WALKING DUE TO SAME. SIT TO STAND WITH CGA OF 2 AND AMB 10 FEET WITH ASSIST TO TURN RW (DOES NOT HAVE SWIVEL WHEELS). STAND TO SIT WITH V.C.'S. O2 SAT WAS 91% INITIALLY AND DESAT TO 88% WITH 2L OF O2, FOLLOWING WALKING. ATTEMPTED PURSED LIP BREATHING, BUT PATIENT UNABLE TO EXHALE LONG ENOUGH. FAMILY PRESENT. CALL MURILLO IN REACH.
--- NOTE | 2017-10-09 18:11 | NUR ---
PT.REQUESTED TO WAIT ON DULCOLAX SUPOSITORY. SHE ASKED IF SHE COULD TRY WARM PRUNE JUICE AND MILK OF MAGNESIA. PT. HAS BEEN MEDICATED WITH LAURENCE'S MOUTHWASH FOR MOUTH AND THROAT PAIN AT THIS TIME, PROVIDED MILK OF MAG AND WARM PRUNE JUICE. DAUGHTER IS ON BED W/THE PT.ASSISTING HER TO EAT AND DRINK. CALL LIGHT ADJUSTED FOR PT.REACH AND PT.HAS BEEN ENCOURAGED FOR ANY NEEDS THEY MAY ARISE.
--- NOTE | 2017-10-09 18:14 | NUR ---
PT.REQUESTED PAIN MEDICATION, BUT IT IS NOT YET AVAILABLE AT THIS TIME. I PROVIDED THE LAURENCE'S MOUTHWAS AND REPOSITIONED IN AN ATTEMPT FOR COMFORT.
[2017-10-09 19:00] VITALS: BP 143/79
--- NOTE | 2017-10-09 19:30 | NUR ---
PATIENT RESTING IN BED WITH HOB ELEVATED AND O2 VIA NASAL CANNULA IN PLACE. PATIENT WITH SEVERE SHAKING AND HIGH ANXIETY. PATIENT IS ALERT AND ORIENTEDX3 WITH C/O SEVERE RIGHT UPPER BACK AND RIGHT SHOULDER PAIN. MEDICATED WITH MORPHINE FOR 9/10 PAIN SCALE. PATIENT ALSO C/O SEVERE MOTH PAIN-HAS ULCER ON THE RIGHT SIDE OF THE ROOF OF HER MOUTH AND ALSO TO THE TIP OF HER TONGUE-MEDICATED WITH LOZONGE ORDERED. INSTRUCTED PATIENT ON THE USE OF WARM SALT WATER RINSES FOR COMFORT. HEP LOCK TO RIGHT WRIST INTACT AND APPEARS HEALTHY AT THIS TIME. PATIENT WITH SEVERE CONSTIPATION-STATES THAT SHE TOOK MOM WITH PRUNE JUICE EARLIER. REFUSING DULCOLAX SUPP AT THIS TIME. ABD IS SOFT WITH HYPOACTIVE BS. APPETITE IS POOR DUE TO THE ULCERS IN HER MOUTH. DAUGHTER AT BEDSIDE FOR SUPPORT. SAFETY PRECAUTIONS REINFORCED. SIDERAILS PADDED FOR SEIZURE PRECAUTIONS. CALL LIGHT IN REACH. WILL CONT TO MONITOR.
--- NOTE | 2017-10-09 21:20 | NUR ---
PM MEDS GIVEN ORDERED. PATIENT IS CALMER AT THIS TIME-PASSING FLATUS BUT NO STOOL YET. CALL LIGHT IN REACH. WILL CONT TO MONITOR.
--- NOTE | 2017-10-09 23:00 | NUR ---
PATIENT JUST FINISHED NEB TREATMENT PER PATIENT REQUEST. C/O RIGHT UPPER BACK AND SHOULDER PAIN AND MEDICATED FOR 7/10 ON PAIN SCALE WITH MORPHINE 2MG IVP ORDERED. PATIENT WITH HOB ELEVATED AND O2 VIA NASAL CANNULA IN PLACE. SAFETY PRECAUTIONS REINFORCED. CALL LIGHT IN REACH. WILL CONT TO MONITOR.
--- NOTE | 2017-10-10 02:00 | NUR ---
PATIENT APPEARS SLEEPING WITH EYES CLOSED AND HOB ELEVATED. O2 VIA NASAL CANNULA IN PLACE. CALL LIGHT IN REACH. WILL CONT TO MONITOR.
--- NOTE | 2017-10-10 04:00 | NUR ---
PATIENT APPEARS SLEEPING AT THIS TIME WITH O2 VIA NASAL CANNULA IN PLACE. CALL LIGHT IN RREACH. WILL CONT TO MONITOR.
[2017-10-10 05:00] VITALS: BP 127/79
--- NOTE | 2017-10-10 05:00 | NUR ---
PATIENT FINISHED NEB TREATMENT AND C/O MOUTH PAIN WELL RIGHT UPPER BACK PAIN. PATIENT WITH SEVERE SHAKES AGAIN. MEDICATED WITH MAGIC MOUTHWASH FOR MOUTH PAIN AND MORPHINE 2MG IVP FOR PAIN. XANAX 0.5MG PO GIVEN FOR ANXIETY. SITTING UP IN BED WITH O2 VIA NASAL CANNULA IN PLACE. CALL LIGHT IN REACH. WILL CONT TO MONITOR,
[2017-10-10 07:10] VITALS: BP 115/74
--- NOTE | 2017-10-10 08:03 | NUR ---
PT.REQUESTED BREATHING TREATMENT, I CALLED RESPIRATORY, THEY DID NOT ANSWER SO I GAVE DUONEB TREATMENT TO PT. PT.'S DAUGHTER IS AT BEDSIDE AND JUST FINISHED ASSISTING PT.TO EAT. PT.ATE 80% OF HER BREAKFAST THIS MORNING.
[2017-10-10 08:55] LABS: HEMATOCRIT 40.6 % (37.0-47.0); HEMOGLOBIN 12.8 g/dl (12.0-16.0); MEAN CELL VOLUME 98.1 fL CALC (80.0-100.0); MEAN CORPUSCULAR HGB 30.9 pG CALC (26.0-32.0); MEAN CORPUSCULAR HGB CONC 31.5 g/L CALC (32.0-36.0); NEUT# 14.79 thou/uL (2.00-7.15); RED BLOOD COUNT 4.14 mill/uL (4.20-5.60); RED CELL DISTRI WIDTH 13.6 % (11.5-15.5)
[2017-10-10 09:19] LABS: ANION GAP 12 (6-22 (CALC)); BUN 18 mg/dL (7-17); BUN/CREATININE RATIO 42 (12-20 (CALC)); CALCIUM 9.5 mg/dL (8.4-10.2); CARBON DIOXIDE 33 mmol/l (22-30); CHLORIDE 99 mmol/l (95-108); CREATININE 0.4 mg/dL (0.5-1.0); GFR > 60 ML/MIN (>=60 (CALC)); GFR FOR AFR.AMER. > 60 ML/MIN (>=60 (CALC)); GLUCOSE 235 mg/dL (65-105); MAGNESIUM 2.5 mg/dL (1.6-2.3); POTASSIUM 4.6 mmol/l (3.5-5.1); SODIUM 140 mmol/l (137-146)
--- NOTE | 2017-10-10 13:15 | NUR ---
PT.MEDICATED W/DULCOLAX. PT.WAS EATING EARLIER AND ASKED TO WAIT AND THEN WAS BEING TREATED BY RESPIRATORY. PT.INSTRUCTED TO HOLD AND WAIT TO USE BSC LONG POSSIBLE TO ALLOW MEDICATION TO BE EFFECTIVE.
[2017-10-10 15:05] VITALS: BP 153/94
[2017-10-10 15:20] VITALS: BP 154/93
[2017-10-10 15:36] VITALS: BP 134/90
--- NOTE | 2017-10-10 16:08 | NUR ---
MEDICATED PT.FOR PAIN REPORTED 08/28, PT.IS IN BED W/TV ON, FAMILY WAS AT BEDSIDE AND JUST LEFT. PT. REPORTS 1XSMALL FIRM BM. WE DISCUSSED POC FURTHER, PT.DENIES ANY OTHER NEEDS AND VERBALIZES THAT SHE WILL CALL IF SHE NEEDS ANYTHING.
[2017-10-10] MEDS ORDERED: CHLORASEPTIC SO1 LOZ MT (16:18)
[2017-10-10] MEDS ORDERED: K-DUR/KLOR-CON20 MEQ PO (16:18)
[2017-10-10] MEDS ORDERED: PERCOCET 5/325M1 TAB PO (16:18)
[2017-10-10] MEDS ORDERED: ALPRAZOLAM0.5 M2 PO (16:18)
[2017-10-10] MEDS ORDERED: PAXIL30 MG PO (16:18)
[2017-10-10] MEDS ORDERED: COLACE100 MG PO (16:18)
[2017-10-10] MEDS ORDERED: LASIX 20 MG20 MG/TAB PO (16:18)
[2017-10-10] MEDS ORDERED: PREDNISONE10 MG PO (16:18)
[2017-10-10] MEDS ORDERED: PEPCID20 MG PO (16:18)
[2017-10-10] MEDS ORDERED: DALIRESP500 MCG PO (16:18)
[2017-10-10] MEDS ORDERED: SPIRIVA HANDIHALER IN (16:18)
[2017-10-10] MEDS ORDERED: ADVAIR DISK1 IN (16:18)
[2017-10-10] MEDS ORDERED: BUSPAR5 M1 PO (16:18)
[2017-10-10] MEDS ORDERED: ALBUTEROL SUL0.083 % NEB (16:18)
[2017-10-10] MEDS ORDERED: CARDIZEM CD240 MG PO (16:18)
[2017-10-10 16:20] VITALS: BP 148/70
--- NOTE | 2017-10-10 17:58 | NUR ---
PT. MEDICATED FOR PAIN AND ANXIETY AND DISCHARGED OFF THE FLOOR VIA STRETCHER IN STABLE CONDITION TRANSPORTED BY [employer].
== END 2017-10-10 18:00 | DRG 189 ==
LOC: ED 12:22 → ED-I 13:33 → ED 15:30 → ED-I 15:31 → ICU 16:11 → MS2 16:11 → ED-I 16:11 → ICU 16:33 → MS2 10-03 16:48
PROVIDERS: Emergency Medicine; Internal Medicine; Nurse Practitioner Family; ADMIT Internal Medicine; ATTEND Internal Medicine
PROC: 3E0234Z Introduction of Serum, Toxoid and Vaccine into Muscle, Percutaneous Approach (ICD-10-PCS; principal; 2017-10-04)
DX: J96.21 Acute and chronic respiratory failure with hypoxia (principal); B37.0 Candidal stomatitis; J84.10 Pulmonary fibrosis, unspecified; R64 Cachexia; J44.0 Chronic obstructive pulmonary disease with (acute) lower respiratory infection; J44.1 Chronic obstructive pulmonary disease with (acute) exacerbation; Z68.1 Body mass index [BMI] 19.9 or less, adult; Z99.81 Dependence on supplemental oxygen; J96.22 Acute and chronic respiratory failure with hypercapnia; I10 Essential (primary) hypertension; E78.5 Hyperlipidemia, unspecified; F32.9 Major depressive disorder, single episode, unspecified; G40.909 Epilepsy, unspecified, not intractable, without status epilepticus; R00.0 Tachycardia, unspecified; F41.1 Generalized anxiety disorder; J20.9 Acute bronchitis, unspecified; K59.00 Constipation, unspecified; R73.9 Hyperglycemia, unspecified; T38.0X5A Adverse effect of glucocorticoids and synthetic analogues, initial encounter; Z87.891 Personal history of nicotine dependence; Z23 Encounter for immunization
CPT/HCPCS: J1650; J2060

== ENCOUNTER 2017-12-25 11:10 | Inpatient (IN) | payer OTHER, MEDICAID ==
--- NOTE | 2017-12-24 19:00 | NUR ---
INTRODUCED SELF TO PT, ALERT AND ORIENTED X3, COPD. 02 2L NC, VOICES NO COMPLAINTS AT THIS TIME. DISCUSSED POC, MEDS BROUGHT FROM HOME AND PLACED IN MED ROOM FOR PHARMACY. ADMISSION ASSESSMENT COMPLETED AT THIS TIME. CALL LIGHT IN REACH,CONTINUE TO MONITOR.
[~2017-12-25] VITALS: Ht 162.6 cm; Wt 44.0 kg
[~2017-12-25 11:10] MED LIST changes: +ADVAIR DISK1 IN; +ALBUTEROL SUL0.083 % NEB; +BUSPAR5 M1 PO; +CARDIZEM CD240 MG PO; +CHLORASEPTIC SO1 LOZ MT; +COLACE100 MG PO; +DALIRESP500 MCG PO; +K-DUR/KLOR-CON20 MEQ PO; +LASIX 20 MG20 MG/TAB PO; +PAXIL30 MG PO; +PEPCID20 MG PO; +PERCOCET 5/325M1 TAB PO
--- NOTE | 2017-12-25 11:18 | NUR ---
TO ROOMM 8 VIA W/C. O2 AT 2L/MIN PER N/C IN USE
--- NOTE | 2017-12-25 12:45 | NUR ---
PT ADVISED OF WAIT FOR LAB RESULTS. O2 2L/M VIA NC DEPENDENT AT HOME. RESP EVENA AND UNLABORED.
[2017-12-25 13:00] LABS: HEMATOCRIT 38.5 % (37.0-47.0); HEMOGLOBIN 12.6 g/dl (12.0-16.0); IMMATURE GRANULOCYTES 0.4 % (0.0-1.0); MEAN CELL VOLUME 93.9 fL CALC (80.0-100.0); MEAN CORPUSCULAR HGB 30.7 pG CALC (26.0-32.0); MEAN CORPUSCULAR HGB CONC 32.7 g/L CALC (32.0-36.0); NEUT# 12.12 thou/uL (2.00-7.15); RED BLOOD COUNT 4.1 mill/uL (4.20-5.60); RED CELL DISTRI WIDTH 12.3 % (11.5-15.5)
[2017-12-25 13:17] LABS: ANION GAP 18 (6-22 (CALC)); BUN 8 mg/dL (7-17); BUN/CREATININE RATIO 19 (12-20 (CALC)); CARBON DIOXIDE 28 mmol/l (22-30); CHLORIDE 100 mmol/l (95-108); CREATININE 0.4 mg/dL (0.5-1.0); GFR > 60 ML/MIN (>=60 (CALC)); GFR FOR AFR.AMER. > 60 ML/MIN (>=60 (CALC)); POTASSIUM 4.2 mmol/l (3.5-5.1); SODIUM 141 mmol/l (137-146)
--- NOTE | 2017-12-25 13:40 | NUR ---
PT TO BR AND RETURNED WITHOUT O2. PT SOB UPON RETURN TO STRETCHER. O2 2L/M VIA NC REAPPLIED.
[2017-12-25 13:56] LABS: INFLUENZA A NONE DETECTED (NONE DETECT); INFLUENZA B NONE DETECTED (NONE DETECT)
--- NOTE | 2017-12-25 14:55 | NUR ---
PT TO AND FROM BR W/STEADY GAIT.
--- NOTE | 2017-12-25 16:00 | NUR ---
PT ASSISTED W/REPOSITIONING. IV ABT INFUSING SITE HEALTHY. VSS. PT ST ON MONITOR. 109 BPM.
--- NOTE | 2017-12-25 17:00 | NUR ---
PT AWARE OF PENDING ADMIT. IV SITE HEALTHY. REPORITIONS SELF. O2 DEPENDENT. SKIN WARM AND DRY. CAP REFILL BRISK. RESP EVEN AND UNLABORED.
--- NOTE | 2017-12-25 18:00 | NUR ---
ATTEMPT TO CALL REPORT NURSE UNAVAILABLE
--- NOTE | 2017-12-25 18:14 | NUR ---
REPORT PROVIDED TO KIMBERLEE LOMAS, ON [facility]. IV SITE HEALTHY. FLUIDS ORDERED. O2 VIA TANK. NO APPARENT DISTRESS. TELEMETRY IN PLACE. PT TO [facility] RM [id number].
[2017-12-25 18:20] VITALS: BP 125/77
--- NOTE | 2017-12-25 18:39 | NUR ---
REPORT RECEIVED FROM MELODY IN ED, PT ARRIVED ON UNIT @ 1822 VIA STRETCHER AND ASSISTED TO BED, MELODY STARTED IVF OF 0.9 NS @ 200 ML/HR TO SITE IN [facility]. ALERT AND ORIENTED X 4, ORIENTED TO ROOM AND CALL MURILLO. C/O ACHING HEADACHE @ 06/28 AT THIS TIME. TELE MONITOR IN PLACE, WILL CONTINUE TO MONITOR AND ADDRESS NEEDS.
--- NOTE | 2017-12-25 19:00 | NUR ---
INTRODUCED SELF TO PT, ALERT AND ORIENTED X3, COPD. 02 2L NC, VOICES NO COMPLAINTS AT THIS TIME. DISCUSSED POC, MEDS BROUGHT FROM HOME AND PLACED IN MED ROOM FOR PHARMACY. PT TAKES LAMICTAL HX OF SEIZURES. SEIZURE PRECAUTIONS INITIATED. ADMISSION ASSESSMENT COMPLETED, CALL LIGHT IN REACH,CONTINUE TO MONITOR.
--- NOTE | 2017-12-25 22:37 | NUR ---
PT CALLED FOR XANAX. PT MEDICATED. NO SIGNS OF DISTRESS NOTED, RESP EVEN AND UNLABORED. CALL LIGHT IN REACH,CONTINUE TO MONITOR.
--- NOTE | 2017-12-26 04:09 | NUR ---
PT RESTING IN BED WITH EYES CLOSED, EASILY AROUSED BY VERBAL STIMULI. VOICES NO NEEDS OR COMPLAINTS AT THIS TIME. CALL LIGHT IN REACH,CONTINUE TO MONITOR.
[2017-12-26 04:21] VITALS: BP 91/52
[2017-12-26 04:50] LABS: HEMATOCRIT 31.3 % (37.0-47.0); HEMOGLOBIN 10.3 g/dl (12.0-16.0); IMMATURE GRANULOCYTES 0.7 % (0.0-1.0); MEAN CELL VOLUME 93.7 fL CALC (80.0-100.0); MEAN CORPUSCULAR HGB 30.8 pG CALC (26.0-32.0); MEAN CORPUSCULAR HGB CONC 32.9 g/L CALC (32.0-36.0); NEUT# 7.62 thou/uL (2.00-7.15); RED BLOOD COUNT 3.34 mill/uL (4.20-5.60); RED CELL DISTRI WIDTH 12.1 % (11.5-15.5)
[2017-12-26 04:58] LABS: CHOLESTEROL HDL RATIO 2.6 (<4.4 (CALC))
[2017-12-26 05:00] LABS: ANION GAP 13 (6-22 (CALC)); BUN 10 mg/dL (7-17); BUN/CREATININE RATIO 28 (12-20 (CALC)); CARBON DIOXIDE 25 mmol/l (22-30); CHLORIDE 106 mmol/l (95-108); CREATININE 0.4 mg/dL (0.5-1.0); GFR > 60 ML/MIN (>=60 (CALC)); GFR FOR AFR.AMER. > 60 ML/MIN (>=60 (CALC)); POTASSIUM 3.9 mmol/l (3.5-5.1); SODIUM 140 mmol/l (137-146)
[2017-12-26 05:27] LABS: URINE BILIRUBIN - DIPSTICK NEGATIVE (NEGATIVE); URINE BLOOD DIPSTICK NEGATIVE (NEGATIVE); URINE COLOR YELLOW; URINE GLUCOSE - DIPSTICK NEGATIVE (NEGATIVE); URINE KETONE 15 mg/dL (NEGATIVE); URINE LEUK ESTERASE NEGATIVE (NEGATIVE); URINE NITRITE - DIPSTICK NEGATIVE (Negative); URINE PH 5.5 (4.5-8.0); URINE PROTEIN - DIPSTICK NEGATIVE (NEG-TRACE); URINE UROBILINOGEN - DIPSTICK 0.2 E.U./dL (0.2)
[2017-12-26 05:29] LABS: URINE CLARITY CLEAR
--- NOTE | 2017-12-26 07:00 | NUR ---
RECEIVED BEDSIDE REPORT FROM DUDLEY GARY. RESTING IN SEMI FOWLERS WITH EYES CLOSED, AWAKENS EASILY. ESPS EVEN AND UNLABORED ON O2 VIA NC, TELE MONITOR IN PLACE. DENIES PAIN OR DISCOMFORT. PLAN OF CARE DISCUSSED. SAFETY PRECAUTIONS REINFORCED. BED IN LOWEST POSITION WITH WHEELS LOCKED. CALL LIGHT WITHIN REACH. ENCOURAGED PT TO CALL FOR ANY NEEDS.
--- NOTE | 2017-12-26 09:00 | NUR ---
DR ROCA AT BEDSIDE, NEW ORDERS RECEIVED.
[2017-12-26] MEDS ORDERED: THEO-24 100 MG1 CAP PO (09:48)
[2017-12-26] MEDS ORDERED: PAROXETINE HCL20 MG PO (09:48)
[2017-12-26] MEDS ORDERED: POTASSIUM CHLO10 ME1 PO (09:49)
[2017-12-26] MEDS ORDERED: BUSPAR10 M1 PO (09:49)
[2017-12-26] MEDS ORDERED: FUROSEMIDE20 MG PO (09:52)
[2017-12-26] MEDS ORDERED: DILTIAZEM HCL240 MG PO (09:56)
[2017-12-26] MEDS ORDERED: DUONEB IN (10:00)
[2017-12-26] MEDS ORDERED: ADVAIR DISK1 PO (10:05)
--- NOTE | 2017-12-26 10:15 | NUR ---
RESTING IN SEMI FOWLERS. RESPS EVEN AND UNLABORED ON O2 VIA NC, TELE MONITOR IN PLACE. MEDICATED WITH FLEXERIL PO FOR C/O 5/10 NECK PAIN. REPOSITIONED FOR COMFORT. CALL LIGHT WITHIN REACH. WILL CONTINUE TO MONITOR.
--- NOTE | 2017-12-26 10:35 | NUR ---
MEDICATED WITH XANAX PO FOR C/O ANXIETY.
[2017-12-26 11:15] VITALS: BP 129/76
--- NOTE | 2017-12-26 12:00 | NUR ---
IN HIGH FOWLERS EATING LUNCH. FAMILT AT BEDSIDE. RESPS EVEN AND UNLABORED ON O2 VIA NC, TELE MONITOR IN PLACE. VOICES NO NEEDS AT THIS TIME. CALL LIGHT WITHIN REACH.
--- NOTE | 2017-12-26 16:00 | NUR ---
IN HIGH FOWLERS WATCHING TV, FAMILY AT BEDSIDE. RESPS EVEN AND UNLABORED ON O2 VIA NC, TELE MONITOR IN PLACE. VOICES NO NEEDS AT THIS TIME. CALL LIGHT WITHIN REACH. WILL CONTINUE TO MONITOR.
--- NOTE | 2017-12-26 16:33 | NUR ---
Patient feels a lot better and denied any side effects pertaining to medications. c
[2017-12-26 16:50] VITALS: BP 151/90
[2017-12-26 18:45] VITALS: BP 113/64
--- NOTE | 2017-12-26 19:58 | NUR ---
PT IN BED A/O X3, RESPIRATIONS EVEN AND UNLABORED ON O2 @2L VIA NC HUMIDIFIED. XANAX PO PROVIDED FOR C/O ANXIETY. TELE IN PLACE MONITORED IN ER. PO FLUIDS IN REACH. BSC AT BED SIDE. WILL CONTINUE TO MONITOR. CALL LIGHT IN REACH.
--- NOTE | 2017-12-26 23:38 | NUR ---
FLEXERIL PROVIDED PER PT REQUEST, STATES CANT GET COMFORTABLE. RESPIRATIONS EVEN AND UNALBORED.
[2017-12-27 00:12] VITALS: BP 105/62
[2017-12-27 04:05] VITALS: BP 113/55
--- NOTE | 2017-12-27 04:41 | NUR ---
C/O ANXIETY, MEDICATED WITH XANAX AT THIS TIME.
[2017-12-27 05:19] LABS: HEMATOCRIT 33.5 % (37.0-47.0); HEMOGLOBIN 10.8 g/dl (12.0-16.0); IMMATURE GRANULOCYTES 0.9 % (0.0-1.0); MEAN CELL VOLUME 95.2 fL CALC (80.0-100.0); MEAN CORPUSCULAR HGB 30.7 pG CALC (26.0-32.0); MEAN CORPUSCULAR HGB CONC 32.2 g/L CALC (32.0-36.0); NEUT# 16.93 thou/uL (2.00-7.15); RED BLOOD COUNT 3.52 mill/uL (4.20-5.60); RED CELL DISTRI WIDTH 12.3 % (11.5-15.5)
[2017-12-27 05:36] LABS: ANION GAP 14 (6-22 (CALC)); BUN 15 mg/dL (7-17); BUN/CREATININE RATIO 35 (12-20 (CALC)); CARBON DIOXIDE 28 mmol/l (22-30); CHLORIDE 105 mmol/l (95-108); CREATININE 0.4 mg/dL (0.5-1.0); GFR > 60 ML/MIN (>=60 (CALC)); GFR FOR AFR.AMER. > 60 ML/MIN (>=60 (CALC)); POTASSIUM 4.4 mmol/l (3.5-5.1); SODIUM 143 mmol/l (137-146)
--- NOTE | 2017-12-27 07:00 | NUR ---
RECEIVED BEDSIDE REPORT FROM NANCY GARY. RESTING IN BED WITH EYES CLOSED, AWAKENS EASILY. RESPS EVEN AND UNLABORED ON O2 VIA NC, TELE MONITOR IN PLACE. VOICES NO NEEDS AT THIS TIME. PLAN OF CARE DISCUSSED. SAFETY PRECAUTIONS REINFORCED. SEIZURE PRECAUTONS IN PLACE. BED IN LOWEST POSITION WITH WHEELS LOCKED. CALL LIGHT WITHIN REACH. ENCOURAGED PT TO CALL FOR ANY NEEDS.
[2017-12-27 08:31] VITALS: BP 126/64
--- NOTE | 2017-12-27 10:20 | NUR ---
DR ROCA IN WITH PT, NEW ORDERS RECEIVED.
--- NOTE | 2017-12-27 10:25 | NUR ---
RESTING IN SEMI FOWLERS, RESPS EVEN AND UNLABORED ON O2 VIA NC, TELE MONITOR IN PLACE. MEDICATED WITH XANAX PO FOR TEARFULNESS. VISITORS AT BEDSIDE. CALL LIGHT WITHIN REACH. WILL CONTINUE TO MONITOR.
[2017-12-27 11:00] VITALS: BP 143/64
--- NOTE | 2017-12-27 14:43 | NUR ---
Spoke to pt for med education rounds. Pt is aware of current treatment. Pt noted earlier that her right eye was twitching but denies side effects other than that. Pt also notes she's not eating well. Pt was told to try to eat more and that if twitching continues, to bring it up again. Pt had no further questions or concerns.
[2017-12-27 15:56] VITALS: BP 134/74
--- NOTE | 2017-12-27 16:35 | NUR ---
RESTING IN BED WITH EYES CLOSED, AWAKENS EASILY. RESPS EVEN AND UNLABORED ON O2 VIA NC, TELE MONITOR IN PLACE. VOICES NO NEEDS AT THIS TIME. CALL LIGHT WITHIN REACH. WILL CONTINUE TO MONITOR.
--- NOTE | 2017-12-27 17:37 | NUR ---
RESTING IN BED WATCHING TV. RESPS EVEN AND UNLABORED ON O2 VIA NC, TELE MONITOR IN PLACE. MEDICATED WITH FLEXERIL PO FOR C/O NECK PAIN. CALL LIGHT WITHIN REACH. WILL CONTINUE TO MONITOR.
[2017-12-27 18:56] VITALS: BP 139/86
--- NOTE | 2017-12-27 19:15 | NUR ---
PT SITTING UP IN BED WATCHING TV. PT IS ALERT AND ORIENTED X3. PERRLA. RESP ARE EVEN AND UNALBORED. NO DISTRESS IS NOTED. O2 2L NC IN PLACE. LUNGS ARE DIMINISHED THROUGHOUT. TELE IN PLACE. HR REGULAR. PULSES PALPABLE THROUGHOUT. NO EDEMA NOTED. BS ACTIVE. PT REPORTS NORMAL BM ON 12/25/17. #22 RFA SALINE LOCKED. NO REDNESS OR EDEMA NOTED. WILL CONTINUE TO MONITOR
[2017-12-28] VITALS: BP 152/74
--- NOTE | 2017-12-28 | NUR ---
PT RESTING IN BED WITH EYES CLOSED. RESP ARE EVEN AND UNLABORED. NO DISTRESS NOTED. WILL CONTINUE TO MONITOR
--- NOTE | 2017-12-28 04:00 | NUR ---
PT RESTING IN BED WITH EYES CLOSED. RESP ARE EVEN AND UNLABORED. NO DISTRESS NOTED. WILL CONTINUE TO IAN
[2017-12-28 04:20] VITALS: BP 125/51; BP 132/69
--- NOTE | 2017-12-28 07:00 | NUR ---
RECEIVED BEDSIDE REPORT FROM LEATHA MOHAN. RESTING IN BED WITH EYES CLOSED, AWAKENS EASILY. RESPS EVEN AND UNLABORED ON O2 VIA NC, TELE MONITOR IN PLACE. DENIES PAIN OR DISCOMFORT. PLAN OF CARE DISCUSSED, SAFETY PRECAUTIONS REINFORCED. BED IN LOWEST POSITION WITH WHEELS LOCKED. CALL LIGHT WITHIN REACH. ENCOURAGED PT TO CALL FOR ANY NEEDS.
[2017-12-28 08:08] VITALS: BP 148/90
--- NOTE | 2017-12-28 09:41 | NUR ---
DID NOT HAVE A COMPLETE BED BATH. SHE IS WAITING FOR HER DAUGHTER TO COME IN AND HELP HER SHOWER.
--- NOTE | 2017-12-28 11:20 | NUR ---
MEDICATED WITH XANAX PO FRO C/O ANXIETY. RESPS LABORED ON O2 VIA NC, TELE MONITOR IN PLACE. AT BEDSIDE. CALL LIGHT WITHIN REACH.
[2017-12-28 11:38] VITALS: BP 157/98
--- NOTE | 2017-12-28 11:40 | NUR ---
ASSISTED TO BEDSIDE RECLINER, C/O "BACK SPASMS FROM BEING IN BED TOO LONG." RESPS LABORED, EXERTIONAL SOB NOTED. AT BEDSIDE. MEDIATED WITH FLEXERIL PO FOR COMFORT. CALL LIGHT WITHIN REACH. WILL CONTINUE TO MONITOR.
[2017-12-28] MEDS ORDERED: PERCOCET 5/325M1 TAB PO (15:14)
[2017-12-28] MEDS ORDERED: PREDNISONE10 MG PO (15:14)
[2017-12-28] MEDS ORDERED: CYCLOBENZAPR5 MG PO (15:14)
[2017-12-28] MEDS ORDERED: ALPRAZOLAM0.5 M2 PO (15:14)
--- NOTE | 2017-12-28 16:08 | NUR ---
IV site discontinued, cath intact. No edema , no redness, voices no discomfort.
--- NOTE | 2017-12-28 16:35 | NUR ---
Discharge instructions given. Patient verbalizes understanding of same. Discharged in stable condition via Wheelchair to Home with family. All belongings sent with pt.
== END 2017-12-28 16:35 | disposition home or self-care (01) | DRG 191 ==
LOC: ED 11:10 → ED-I 17:25 → ED 17:48 → MS2 17:49
PROVIDERS: Family Medicine; Nurse Practitioner Family; ADMIT Internal Medicine; ATTEND Internal Medicine
DX: J44.1 Chronic obstructive pulmonary disease with (acute) exacerbation (principal); J96.11 Chronic respiratory failure with hypoxia; E46 Unspecified protein-calorie malnutrition; Z99.81 Dependence on supplemental oxygen; J96.12 Chronic respiratory failure with hypercapnia; Z68.1 Body mass index [BMI] 19.9 or less, adult; R91.8 Other nonspecific abnormal finding of lung field; D64.9 Anemia, unspecified; E78.5 Hyperlipidemia, unspecified; F32.9 Major depressive disorder, single episode, unspecified; G40.909 Epilepsy, unspecified, not intractable, without status epilepticus; S13.9XXA Sprain of joints and ligaments of unspecified parts of neck, initial encounter; I10 Essential (primary) hypertension; K59.00 Constipation, unspecified; F41.1 Generalized anxiety disorder; X58.XXXA Exposure to other specified factors, initial encounter; Z87.891 Personal history of nicotine dependence
CPT/HCPCS: G0378; Q9967

== ENCOUNTER 2018-02-24 23:50 | Inpatient (IN) | payer OTHER, MEDICAID ==
[~2018-02-24] VITALS: Ht 162.6 cm; Wt 44.0 kg
[~2018-02-24 23:50] MED LIST changes: +ADVAIR DISK1 PO; +BUSPAR10 M1 PO; +CYCLOBENZAPR5 MG PO; +DILTIAZEM HCL240 MG PO; +DUONEB IN; +FUROSEMIDE20 MG PO; +PAROXETINE HCL20 MG PO; +POTASSIUM CHLO10 ME1 PO; +THEO-24 100 MG1 CAP PO
[2018-02-25] MEDS ORDERED: SPIRIVA HANDIH18 MCG IN (00:16)
[2018-02-25 00:58] LABS: IMMATURE GRANULOCYTES 0.3 % (0.0-1.0); MEAN CELL VOLUME 90.9 fL CALC (80.0-100.0); MEAN CORPUSCULAR HGB 29.6 pG CALC (26.0-32.0); MEAN CORPUSCULAR HGB CONC 32.6 g/L CALC (32.0-36.0); NEUT# 11.57 thou/uL (2.00-7.15); RED BLOOD COUNT 4.39 mill/uL (4.20-5.60); RED CELL DISTRI WIDTH 13.6 % (11.5-15.5)
[2018-02-25 01:01] LABS: HEMATOCRIT 39.9 % (37.0-47.0)
[2018-02-25 01:15] LABS: ALBUMIN 4.1 g/dL (3.2-5.0); ALKALINE PHOSPHATASE 68 u/l (38-126); AMYLASE 59 u/l (30-110); ANION GAP 19 (6-22 (CALC)); BILIRUBIN, TOTAL 0.3 mg/dL (0.0-1.4); BUN 12 mg/dL (7-17); BUN/CREATININE RATIO 22 (12-20 (CALC)); CARBON DIOXIDE 26 mmol/l (22-30); CHLORIDE 96 mmol/l (95-108); CREATININE 0.5 mg/dL (0.5-1.0); GFR > 60 ML/MIN (>=60 (CALC)); GFR FOR AFR.AMER. > 60 ML/MIN (>=60 (CALC)); LIPASE 93 u/l (23-300); POTASSIUM 3.7 mmol/l (3.5-5.1); SGOT/AST 33 u/l (14-36); SGPT/ALT 35 u/l (9-52); SODIUM 138 mmol/l (137-146); TOTAL PROTEIN 6.9 g/dL (6.3-8.2)
[2018-02-25 01:40] LABS: URINE BILIRUBIN - DIPSTICK NEGATIVE (NEGATIVE); URINE BLOOD DIPSTICK SMALL (NEGATIVE); URINE COLOR YELLOW; URINE GLUCOSE - DIPSTICK NEGATIVE (NEGATIVE); URINE KETONE TRACE mg/dL (NEGATIVE); URINE LEUK ESTERASE NEGATIVE (NEGATIVE); URINE NITRITE - DIPSTICK NEGATIVE (Negative); URINE PH 5.5 (4.5-8.0); URINE PROTEIN - DIPSTICK NEGATIVE (NEG-TRACE); URINE SPECIFIC GRAVITY 1.025; URINE UROBILINOGEN - DIPSTICK 0.2 E.U./dL (0.2)
[2018-02-25 01:41] LABS: URINE CLARITY CLEAR
[2018-02-25 01:55] LABS: URINE BACTERIA FEW hpf; URINE MUCUS MODERATE hpf (NONE-FEW); URINE SQUAMOUS EPITHELIAL CELL FEW EPI/hpf (0-FEW); URINE WBC 0-2 WBC/hpf (0-5)
[2018-02-25 04:00] VITALS: BP 109/62
[2018-02-25 07:41] VITALS: BP 102/56
[2018-02-25 11:07] VITALS: BP 134/67
[2018-02-25 15:07] VITALS: BP 137/70
[2018-02-25 19:00] VITALS: BP 136/69
[2018-02-26 00:18] VITALS: BP 132/63
[2018-02-26 04:31] VITALS: BP 109/50
[2018-02-26 05:07] LABS: IMMATURE GRANULOCYTES 0.7 % (0.0-1.0); MEAN CELL VOLUME 91.3 fL CALC (80.0-100.0); MEAN CORPUSCULAR HGB 29.2 pG CALC (26.0-32.0); NEUT# 12.05 thou/uL (2.00-7.15); RED BLOOD COUNT 3.66 mill/uL (4.20-5.60); RED CELL DISTRI WIDTH 13.3 % (11.5-15.5)
[2018-02-26 05:34] LABS: ANION GAP 14 (6-22 (CALC)); BUN 10 mg/dL (7-17); BUN/CREATININE RATIO 27 (12-20 (CALC)); CARBON DIOXIDE 29 mmol/l (22-30); CHLORIDE 99 mmol/l (95-108); CREATININE 0.4 mg/dL (0.5-1.0); GFR > 60 ML/MIN (>=60 (CALC)); GFR FOR AFR.AMER. > 60 ML/MIN (>=60 (CALC)); MAGNESIUM 2.1 mg/dL (1.6-2.3); POTASSIUM 3.5 mmol/l (3.5-5.1); SODIUM 139 mmol/l (137-146)
[2018-02-26 06:19] LABS: HEMATOCRIT 33.4 % (37.0-47.0); HEMOGLOBIN 10.7 g/dl (12.0-16.0)
[2018-02-26 07:48] VITALS: BP 125/54
[2018-02-26 11:25] VITALS: BP 104/47
[2018-02-26 15:29] VITALS: BP 107/52
[2018-02-26 19:30] VITALS: BP 121/71
[2018-02-27 00:33] VITALS: BP 119/54
[2018-02-27 04:48] VITALS: BP 105/58
[2018-02-27 05:39] LABS: HEMATOCRIT 33.8 % (37.0-47.0); HEMOGLOBIN 10.8 g/dl (12.0-16.0); IMMATURE GRANULOCYTES 0.9 % (0.0-1.0); MEAN CELL VOLUME 92.1 fL CALC (80.0-100.0); MEAN CORPUSCULAR HGB 29.4 pG CALC (26.0-32.0); NEUT# 16.02 thou/uL (2.00-7.15); RED BLOOD COUNT 3.67 mill/uL (4.20-5.60); RED CELL DISTRI WIDTH 13.6 % (11.5-15.5)
[2018-02-27 05:53] LABS: ANION GAP 13 (6-22 (CALC)); BUN 16 mg/dL (7-17); BUN/CREATININE RATIO 44 (12-20 (CALC)); CARBON DIOXIDE 32 mmol/l (22-30); CHLORIDE 100 mmol/l (95-108); CREATININE 0.4 mg/dL (0.5-1.0); GFR > 60 ML/MIN (>=60 (CALC)); GFR FOR AFR.AMER. > 60 ML/MIN (>=60 (CALC)); MAGNESIUM 2.1 mg/dL (1.6-2.3); POTASSIUM 3.8 mmol/l (3.5-5.1); SODIUM 141 mmol/l (137-146)
[2018-02-27 07:46] VITALS: BP 145/77
[2018-02-27 11:00] VITALS: BP 118/54
[2018-02-27 16:23] VITALS: BP 122/67
[2018-02-27 19:19] VITALS: BP 143/74
[2018-02-28] VITALS (7 sets, daily range): BP systolic 128–159; BP diastolic 60–112
[2018-02-28 05:45] LABS: HEMATOCRIT 34.2 % (37.0-47.0); HEMOGLOBIN 10.9 g/dl (12.0-16.0); MEAN CELL VOLUME 93.2 fL CALC (80.0-100.0); MEAN CORPUSCULAR HGB 29.7 pG CALC (26.0-32.0); MEAN CORPUSCULAR HGB CONC 31.9 g/L CALC (32.0-36.0); RED BLOOD COUNT 3.67 mill/uL (4.20-5.60); RED CELL DISTRI WIDTH 13.8 % (11.5-15.5)
[2018-02-28 05:51] LABS: ANION GAP 12 (6-22 (CALC)); BUN 20 mg/dL (7-17); BUN/CREATININE RATIO 51 (12-20 (CALC)); CARBON DIOXIDE 35 mmol/l (22-30); CHLORIDE 99 mmol/l (95-108); CREATININE 0.4 mg/dL (0.5-1.0); GFR > 60 ML/MIN (>=60 (CALC)); GFR FOR AFR.AMER. > 60 ML/MIN (>=60 (CALC)); MAGNESIUM 2.2 mg/dL (1.6-2.3); POTASSIUM 3.9 mmol/l (3.5-5.1); SODIUM 142 mmol/l (137-146)
[2018-03-01 00:11] VITALS: BP 161/83
[2018-03-01 05:00] LABS: HEMATOCRIT 35.3 % (37.0-47.0); HEMOGLOBIN 11.2 g/dl (12.0-16.0); MEAN CELL VOLUME 92.9 fL CALC (80.0-100.0); MEAN CORPUSCULAR HGB 29.5 pG CALC (26.0-32.0); MEAN CORPUSCULAR HGB CONC 31.7 g/L CALC (32.0-36.0); RED BLOOD COUNT 3.8 mill/uL (4.20-5.60); RED CELL DISTRI WIDTH 13.7 % (11.5-15.5)
[2018-03-01 05:05] VITALS: BP 159/83
[2018-03-01 05:08] LABS: ANION GAP 11 (6-22 (CALC)); BUN 21 mg/dL (7-17); BUN/CREATININE RATIO 50 (12-20 (CALC)); CARBON DIOXIDE 39 mmol/l (22-30); CHLORIDE 95 mmol/l (95-108); CREATININE 0.4 mg/dL (0.5-1.0); GFR > 60 ML/MIN (>=60 (CALC)); GFR FOR AFR.AMER. > 60 ML/MIN (>=60 (CALC)); SODIUM 142 mmol/l (137-146)
[2018-03-01 08:17] VITALS: BP 141/84
[2018-03-01 10:56] VITALS: BP 151/86
[2018-03-01] MEDS ORDERED: ALPRAZOLAM0.25 MG PO (13:54)
[2018-03-01] MEDS ORDERED: ALBUTEROL SUL0.083 % IN (13:54)
[2018-03-01] MEDS ORDERED: OXYCODONE/ACETA1 TA8 PO (13:54)
[2018-03-01] MEDS ORDERED: LEVAQUIN750 MG PO (13:54)
[2018-03-01] MEDS ORDERED: PREDNISONE10 MG PO (13:54)
== END 2018-03-01 16:43 | disposition home health service (06) | DRG 194 ==
LOC: ED 23:50 → ED-I 02-25 02:30 → ED 02-25 02:45 → MS2 02-25 02:46
PROVIDERS: Emergency Medicine; Nurse Practitioner Family; ADMIT Hospitalist; ATTEND Hospitalist
DX: J18.9 Pneumonia, unspecified organism (principal); E46 Unspecified protein-calorie malnutrition; R64 Cachexia; Z99.81 Dependence on supplemental oxygen; J44.0 Chronic obstructive pulmonary disease with (acute) lower respiratory infection; Z68.1 Body mass index [BMI] 19.9 or less, adult; E78.5 Hyperlipidemia, unspecified; G40.909 Epilepsy, unspecified, not intractable, without status epilepticus; F32.9 Major depressive disorder, single episode, unspecified; G89.29 Other chronic pain; F41.1 Generalized anxiety disorder; M54.9 Dorsalgia, unspecified; D64.9 Anemia, unspecified; R00.0 Tachycardia, unspecified; M62.50 Muscle wasting and atrophy, not elsewhere classified, unspecified site; K59.00 Constipation, unspecified; Z87.01 Personal history of pneumonia (recurrent); Z87.891 Personal history of nicotine dependence
CPT/HCPCS: J1956

== ENCOUNTER 2018-03-13 09:49 | Emergency (ER) | payer OTHER, MEDICAID ==
[~2018-03-13] VITALS: Ht 162.6 cm; Wt 43.6 kg
[~2018-03-13 09:49] MED LIST changes: +ALPRAZOLAM0.25 MG PO; +LEVAQUIN750 MG PO; +OXYCODONE/ACETA1 TA8 PO; +SPIRIVA HANDIH18 MCG IN
[2018-03-13] MEDS ORDERED: VOLTAREN - GENE75 MG PO (11:40)
[2018-03-13 11:53] VITALS: BP 134/79
== END 2018-03-13 11:53 | disposition home or self-care (01) | DRG 563 ==
LOC: ED 09:49
DX: S86.911A Strain of unspecified muscle(s) and tendon(s) at lower leg level, right leg, initial encounter (principal); J98.4 Other disorders of lung; I10 Essential (primary) hypertension; G40.909 Epilepsy, unspecified, not intractable, without status epilepticus; X58.XXXA Exposure to other specified factors, initial encounter

== ENCOUNTER → 2018-08-21 | Outpatient (REF) | payer OTHER, MEDICAID ==
[~2018-08-21] MED LIST changes: +VOLTAREN - GENE75 MG PO
[2018-08-21 13:14] LABS: HEMOGLOBIN 12.6 g/dl (12.0-16.0); IMMATURE GRANULOCYTES 0.2 % (0.0-5.0); MEAN CELL VOLUME 91.3 fL CALC (80.0-100.0); MEAN CORPUSCULAR HGB 29.5 pG CALC (26.0-32.0); MEAN CORPUSCULAR HGB CONC 32.3 g/L CALC (32.0-36.0); NEUT# 3.71 thou/uL (2.00-7.15); RED BLOOD COUNT 4.27 mill/uL (4.20-5.60); RED CELL DISTRI WIDTH 13.7 % (11.5-15.5)
[2018-08-21 13:34] LABS: ALBUMIN 4.1 g/dL (3.2-5.0); ALKALINE PHOSPHATASE 63 u/l (38-126); ANION GAP 11 (6-22 (CALC)); BILIRUBIN, TOTAL 0.4 mg/dL (0.0-1.4); BUN 10 mg/dL (7-17); BUN/CREATININE RATIO 22 (12-20 (CALC)); CARBON DIOXIDE 35 mmol/l (22-30); CHLORIDE 97 mmol/l (95-108); CREATININE 0.4 mg/dL (0.5-1.0); GFR > 60 ML/MIN (>=60 (CALC)); GFR FOR AFR.AMER. > 60 ML/MIN (>=60 (CALC)); POTASSIUM 4.4 mmol/l (3.5-5.1); SGOT/AST 33 u/l (14-36); SODIUM 139 mmol/l (137-146); TOTAL PROTEIN 6.7 g/dL (6.3-8.2)
== END | disposition home or self-care (01) | DRG 392 ==
LOC: LAB 11:42
PROVIDERS: ATTEND Internal Medicine
DX: R19.7 Diarrhea, unspecified (principal); J96.11 Chronic respiratory failure with hypoxia; R64 Cachexia; M81.0 Age-related osteoporosis without current pathological fracture; R63.4 Abnormal weight loss; R53.83 Other fatigue

== ENCOUNTER 2019-01-27 20:34 | Inpatient (IN) | payer OTHER, MEDICAID ==
[~2019-01-27] VITALS: Ht 162.6 cm; Wt 45.8 kg
--- NOTE | 2019-01-27 20:35 | NUR ---
PATIENT BROUGHT IMMEDIATELY TO TREATMENT AREA VIA WHEELCHAIR. PATIENT UNDRESSED INTO A GOWN, EKG COMPLETED. PATIENT PLACED ON O2 VIA NC AND PLACED ON RURAL CARRIER. TRIAGE COMPLETED AT BEDSIDE. AWAITING EVAL.
[2019-01-27] MEDS ORDERED: XANAX0.5 MG PO (21:01)
--- NOTE | 2019-01-27 21:02 | NUR ---
PT SEEN BY EDP, FAMILY AT BEDSIDE.
[2019-01-27 21:14] LABS: HEMATOCRIT 39.9 % (37.0-47.0); HEMOGLOBIN 12.5 g/dl (12.0-16.0); IMMATURE GRANULOCYTES 1.1 % (0.0-5.0); MEAN CELL VOLUME 91.5 fL CALC (80.0-100.0); MEAN CORPUSCULAR HGB 28.7 pG CALC (26.0-32.0); MEAN CORPUSCULAR HGB CONC 31.3 g/L CALC (32.0-36.0); NEUT# 10.75 thou/uL (2.00-7.15); RED BLOOD COUNT 4.36 mill/uL (4.20-5.60); RED CELL DISTRI WIDTH 13.1 % (11.5-15.5)
[2019-01-27 21:27] LABS: ALBUMIN 4.3 g/dL (3.2-5.0); ALKALINE PHOSPHATASE 80 u/l (38-126); AMYLASE 83 u/l (30-110); ANION GAP 14 (6-22 (CALC)); BILIRUBIN, TOTAL 0.3 mg/dL (0.0-1.4); BUN 14 mg/dL (8-23); BUN/CREATININE RATIO 30 (12-20 (CALC)); CARBON DIOXIDE 29 mmol/l (22-30); CHLORIDE 97 mmol/l (95-108); CREATININE 0.5 mg/dL (0.5-1.0); GFR > 60 ML/MIN (>=60 (CALC)); GFR FOR AFR.AMER. > 60 ML/MIN (>=60 (CALC)); LIPASE 170 u/l (23-300); POTASSIUM 4.3 mmol/l (3.5-5.1); SGOT/AST 23 u/l (9-36); SODIUM 136 mmol/l (137-146); TOTAL PROTEIN 6.8 g/dL (6.3-8.2)
--- NOTE | 2019-01-27 21:30 | NUR ---
PT STATES IMPROVEMENT IN CHEST PAIN AND HEACHACHE.
[2019-01-27 21:38] LABS: MYOGLOBIN 25 ng/mL (0 - 62)
--- NOTE | 2019-01-27 22:47 | NUR ---
PT ARRIVES ON THE FLOOR VIA STRETCHER WITH EVGENY AND FAMILY MEMBER IN STABLE CONDITION. PT TRANSFERED FROM BED TO [facility] WITH UNSTEADY GAIT. PT HAS EXERTIONAL SOB AND SHAKES. PT SETTLED INTO BED. AFTER A FEW MINUTES OF DEEP BREATHS PT SETTLES DOWN AND NO LONGER SHAKING AND SOB. ASSESMENT COMPLETED AT THIS TIME. LUNG SOUND DIMINISHED. 02 @ 2L. PT NOT C/O ANY PAIN AT THIS TIME. NO NEEDS A THIS TIME. CALL MURILLO IN REACH. WILL CONTINUE TO MONITOR.
--- NOTE | 2019-01-27 22:55 | NUR ---
PT TAKEN TO ROOM 278 WITHOUT INCIDENT, REPORT WAS TO LAUREL.
[2019-01-27 23:40] VITALS: BP 117/68
--- NOTE | 2019-01-28 01:50 | NUR ---
PT C/0 PAIN TO BACK AND HEAD. MEDICATED PER ORDER FOR PAIN. NO OTHER NEEDS AT THIS TIME. CALL MURILLO IN REACH. WILL CONTINUE TO MONITOR.
--- NOTE | 2019-01-28 04:00 | NUR ---
PT RESTING IN BED WITH EYES CLOSED. FAMILY MEMBER REMAINS AT BEDSIDE. 02 @ 2L. NO S/S OF DISTRESS NOTED. CALL MURILLO IN REACH. WILL CONTINUE TO MONITOR.
[2019-01-28 05:08] VITALS: BP 117/67
[2019-01-28 08:05] VITALS: BP 144/65
--- NOTE | 2019-01-28 08:05 | NUR ---
ASSESSMENT IS COMPLETED: IV SITE IS FREE FROM REDNESS OR EDEMA HR IS REG, PULSES ARE STRONG X4, ABD IS SOFT WITH ACTIVE BS. BREATH SOUNDS ARE CLEAR,AND WHEEZING N THE BASES. CONTINUE TO OBSERVE AND MONITOR.
[2019-01-28 11:11] VITALS: BP 127/65
--- NOTE | 2019-01-28 12:00 | NUR ---
PT IS RELAXING IN BED INQUIRING WHEN THE DR WAS COMING IN. INFORMED PT THAT DR WAS IN HOSPITAL VERBALIZED UNDERSTANDING.
[2019-01-28 15:45] VITALS: BP 130/75
--- NOTE | 2019-01-28 16:00 | NUR ---
PT IS RELAXING IN BED FAMILY IN THE ROOM. IN TO VISIT WITH PT. AT [address] ORDERS . CONTINUE TO OSEBRVE AND MONITOR.
--- NOTE | 2019-01-28 17:00 | NUR ---
PT IS BEING TRANSPORTED TO HAVE A CT SCAN. IV SITE IS FREE FROM REDNESS OR EDMEA.
--- NOTE | 2019-01-28 17:45 | NUR ---
PT RETURNED FROM HAVING CT SCAN.
[2019-01-28 19:00] VITALS: BP 128/74
[2019-01-29 00:06] VITALS: BP 125/77
[2019-01-29 04:47] LABS: HEMOGLOBIN 11.1 g/dl (12.0-16.0); IMMATURE GRANULOCYTES 1.1 % (0.0-5.0); MEAN CELL VOLUME 92.8 fL CALC (80.0-100.0); MEAN CORPUSCULAR HGB 29.4 pG CALC (26.0-32.0); MEAN CORPUSCULAR HGB CONC 31.7 g/L CALC (32.0-36.0); NEUT# 13.3 thou/uL (2.00-7.15); RED BLOOD COUNT 3.77 mill/uL (4.20-5.60); RED CELL DISTRI WIDTH 12.9 % (11.5-15.5)
[2019-01-29 04:48] VITALS: BP 124/75
[2019-01-29 05:08] LABS: ALKALINE PHOSPHATASE 60 u/l (38-126); AMYLASE 60 u/l (30-110); ANION GAP 13 (6-22 (CALC)); BUN 22 mg/dL (8-23); BUN/CREATININE RATIO 50 (12-20 (CALC)); CARBON DIOXIDE 25 mmol/l (22-30); CHLORIDE 105 mmol/l (95-108); CREATININE 0.4 mg/dL (0.5-1.0); GFR > 60 ML/MIN (>=60 (CALC)); GFR FOR AFR.AMER. > 60 ML/MIN (>=60 (CALC)); LIPASE 157 u/l (23-300); POTASSIUM 4.1 mmol/l (3.5-5.1); SGOT/AST 19 u/l (9-36); SODIUM 138 mmol/l (137-146); TOTAL PROTEIN 5.6 g/dL (6.3-8.2)
[2019-01-29 05:10] LABS: ALBUMIN 3.3 g/dL (3.2-5.0)
--- NOTE | 2019-01-29 07:00 | NUR ---
SHIFT CHANGE REPORT, PT AWAKE ALERT AND ORIENTED RESTING IN BEDBREATHING SHALLOW WITH O2 @ 2L VIA NC, TELE MONITOR IN PLACE, C/O BACK AND SHOULDER PAIN, CONCERNS ADDRESSED, WILL CONTINUE TO MONITOR, CALL MURILLO IN REACH.
[2019-01-29 08:11] VITALS: BP 144/65
[2019-01-29 12:00] VITALS: BP 148/81
--- NOTE | 2019-01-29 12:00 | NUR ---
DR KOROMA ROUNDED AND DISCUSSED PLAN OF CARE, PT STATED UNDERSTANDING.
[2019-01-29 15:21] VITALS: BP 136/77
--- NOTE | 2019-01-29 16:00 | NUR ---
CONDITION REMAINS SAME WITH SLIGHT MPROVEMENT IN BREATHING.
[2019-01-29 19:24] VITALS: BP 117/69
[2019-01-30] VITALS (7 sets, daily range): BP systolic 111–160; BP diastolic 52–94
--- NOTE | 2019-01-30 00:28 | NUR ---
Patient resting in bed. No complaints of pain. V/S wnl. Patient sleeping. Will continue to monitor patient progress.
--- NOTE | 2019-01-30 04:39 | NUR ---
Patient resting in bed. No complaints of pain. No S&S of distress. Will continue to monitor patient progress.
--- NOTE | 2019-01-30 07:27 | NUR ---
SHIFT CHANGE REPORT, PT WAKE ALERT AND ORIENTED SITTING UP IN BED, DENIES PAIN STATING SHE WAS MEDICATED EARLIER AND NO PAIN NOW, TELE MONITOR IN PLACE, O2 @ 2L VIA NC IN PLACE, CALL MURILLO IN REACH.
--- NOTE | 2019-01-30 11:35 | NUR ---
SITTING UP IN BED, ALL NEEDS MET/ADDRESSED.
--- NOTE | 2019-01-30 12:00 | NUR ---
ATE MEAL AND RELAXING IN BED, C/O GENERALISED PAIN, ISSUE ADDRESSED.
--- NOTE | 2019-01-30 17:06 | NUR ---
CONDITION STABLE WITH REPORTED IMPROVEMENT PER PATIENT.
--- NOTE | 2019-01-30 18:23 | NUR ---
IV ZITHROMAX INFUSINGNOW, PT C/O SEVERE PAIN AT SITE, ON ASSESSMENT SITE NOT INFILTRATED, INFUSION RATE DECREASED AND PT STATED PAIN IMPROVED.
--- NOTE | 2019-01-30 19:12 | NUR ---
REPORT FROM CESILIA MOHAN. PT SITTING UP IN BED. ALERT AND ORIENTED. PT APPEARS SOB AT THIS TIME. 02 AT 2L/M VIA NC. PT WAS JUST UP AMBULATING IN ROOM WITH DAUGHTER. PT DENIES ANY PAIN OR DISCOMFORT. CALL LIGHT WITHIN REACH. WILL CONTINUE TO MONITOR.
--- NOTE | 2019-01-30 20:44 | NUR ---
PT MEDICATED FOR GENERALIZED PAIN 03/28. WILL CONTINUE TO MONITOR.
--- NOTE | 2019-01-31 01:11 | NUR ---
PT RESTING IN BED WITH EYES CLOSED. NO S/S OF DISTRESS NOTED. 02 @ 2L/M VIA NC AND RN FIELD IN PLACE. CALL LIGHT WITHIN REACH. WILL CONTINUE TO MONITOR.
[2019-01-31 04:32] VITALS: BP 119/59
--- NOTE | 2019-01-31 05:20 | NUR ---
PT MEDICATED FOR GENERALIZED PAIN 04/28. WILL CONTINUE TO MONITOR. PT HAS NO OTHER WANTS OR NEEDS AT THIS TIME.
[2019-01-31 07:35] VITALS: BP 148/65
--- NOTE | 2019-01-31 07:35 | NUR ---
ASSESSMENT IS COMPLETED: IV SITE IS FREE FROM REDNESS OR EDEMA. HR IS REG ,PULSES ARE STRONG X4, ABD IS SOFT WITH ACTIVE BS. BREATH SOUNDS ARE DIMINISHED. O2 @ 2LITERS W/ NC. CALL MURILLO WITHIN REACH. CONTINUE TO OBSERVE AND MONITOR.
[2019-01-31 11:08] VITALS: BP 124/67
--- NOTE | 2019-01-31 12:00 | NUR ---
PT IS RELAXING IN BED WITH NO DISTRESS NOTED. IV SITE IS FREE FROM REDNESS OR EDEMA. CONTINUE TO OSBERVE AND MONITOR.
[2019-01-31 14:56] VITALS: BP 156/68
--- NOTE | 2019-01-31 16:00 | NUR ---
PT IS RELAXING IN BED WITH NO DISTRESS NOTED. IV SITE IS FREE FROM REDNESS OR EDEMA.
[2019-01-31 19:41] VITALS: BP 158/68
--- NOTE | 2019-01-31 22:13 | NUR ---
PT RESTING IN BED WATCHING TV. ASSESMENT COMPLETED AT THIS TIME. LUNG SOUNDS COARSE. O2 @ 2L. NO NEEDS AT THIS TIME. CALL MURILLO IN REACH. WILL CONTINUE TO MONITOR.
--- NOTE | 2019-01-31 22:49 | NUR ---
PT C/O GENERLIZED PAIN. MEDICATED PER ORDER
[2019-02-01 00:21] VITALS: BP 142/64
--- NOTE | 2019-02-01 02:40 | NUR ---
PT C/O PAIN AND SHAKING. MEDICATED PER ORDER PAIN.
--- NOTE | 2019-02-01 04:00 | NUR ---
PT RESTING IN BED WATCHING TV AT THIS TIME. CALL MURILLO IN REACH. WILL CONTINUE TO MONITOR.
[2019-02-01 04:17] VITALS: BP 130/76
[2019-02-01 05:53] LABS: HEMATOCRIT 35.9 % (37.0-47.0); HEMOGLOBIN 11.2 g/dl (12.0-16.0); IMMATURE GRANULOCYTES 2.9 % (0.0-5.0); MEAN CELL VOLUME 92.5 fL CALC (80.0-100.0); MEAN CORPUSCULAR HGB 28.9 pG CALC (26.0-32.0); MEAN CORPUSCULAR HGB CONC 31.2 g/L CALC (32.0-36.0); NEUT# 11.67 thou/uL (2.00-7.15); RED BLOOD COUNT 3.88 mill/uL (4.20-5.60)
[2019-02-01 06:16] LABS: ALBUMIN 3.3 g/dL (3.2-5.0); ALKALINE PHOSPHATASE 45 u/l (38-126); ANION GAP 9 (6-22 (CALC)); BILIRUBIN, TOTAL 0.4 mg/dL (0.0-1.4); BUN 21 mg/dL (8-23); BUN/CREATININE RATIO 78 (12-20 (CALC)); CARBON DIOXIDE 32 mmol/l (22-30); CHLORIDE 100 mmol/l (95-108); CREATININE 0.3 mg/dL (0.5-1.0); GFR > 60 ML/MIN (>=60 (CALC)); GFR FOR AFR.AMER. > 60 ML/MIN (>=60 (CALC)); MAGNESIUM 2.3 mg/dL (1.6-2.3); POTASSIUM 4.1 mmol/l (3.5-5.1); SGOT/AST 28 u/l (9-36); SODIUM 137 mmol/l (137-146); TOTAL PROTEIN 5.7 g/dL (6.3-8.2)
--- NOTE | 2019-02-01 07:25 | NUR ---
PT RESTING IN BED, NO SIGNS OF DISTRESS NOTED, RESPS EVEN AND UNLABORED, PT HAS 02 2L NC, HOME DEPENDENT. DISCUSSED POC, ALERT AND ORIENTED X3, NO EDEMA. PT HAS A CLINICAL ASST-COUGH. VOICES NO NEEDS OR COMPLAINTS AT THIS TIME. ASSESSMENT COMPLETED, CALL LIGHT IN REACH,CONTINUE TO MONITOR.
[2019-02-01 08:47] VITALS: BP 136/92
--- NOTE | 2019-02-01 10:27 | NUR ---
PT SITTING IN RECLINER, MANAGER STORAGE AT BEDSIDE TO ASSESS PT, MEDICATED WITH XANAX REQUESTED. CALL LIGHT IN REACH,CONTINUE TO MONITOR,
[2019-02-01 11:30] VITALS: BP 150/83
--- NOTE | 2019-02-01 11:52 | NUR ---
PT GIVEN MOM IN WARM PRUNE JUICE, DISCUSSED MIRALAX, PT STATES SHE WILL WAIT BEFORE DOING THE MIRALAX WELL. CALL LIGHT IN REACH, CONTINUE TO MONITOR
[2019-02-01 16:20] VITALS: BP 148/97
--- NOTE | 2019-02-01 16:43 | NUR ---
PT SITTING IN RECLINER AFTER SHOWER, PT REQUESTED MIRALAX AT THIS TIME. CALL LIGHT IN REACH,CONTINUE TO MONITOR.
--- NOTE | 2019-02-01 19:00 | NUR ---
PT RESTING QUIETLY IN BED WATCHING TV. PT IS A&O x3. ASSESMENT COMPLETED A THIS TIME. O2 @ 2L. NO NEEDS A THIS TIME. CALL MURILLO IN REACH. WILL CONTINUE TO MONITOR.
[2019-02-01 19:54] VITALS: BP 163/79
--- NOTE | 2019-02-01 22:30 | NUR ---
PT RESTING IN BED. MEDICATED PER ORDER FOR PAIN AND ANXIETY. O2 @ 2L. ASSESMENT COMPLETED AT THIS TIME. IV FLUSHES WELL. NO EDEMA NOTED. PT VOICES NO NEEDS OR COMPLAINTS ATH THIS TIME. CALL MURILLO IN REACH. WILL CONTINUE TO MONITOR.
--- NOTE | 2019-02-02 | NUR ---
PT RESTING QUIETLY IN BED. RESP EVEN AND UNLABORED. 02 @ 2L. CALL MURILLO IN REACH. WILL CONTINUE TO MONITOR.
[2019-02-02 00:11] VITALS: BP 138/69
--- NOTE | 2019-02-02 03:15 | NUR ---
PT UP TO RECLINER. PT C/O PAIN TO HER BACK 05/28. MEDICATED PER ORDER. NO OTHER NEEDS AT THIS TIME. CALL MURILLO IN REACH. WILL CONTINUE TO MONITOR.
[2019-02-02 03:37] VITALS: BP 151/72
[2019-02-02 05:52] LABS: HEMATOCRIT 40.4 % (37.0-47.0); HEMOGLOBIN 12.7 g/dl (12.0-16.0); MEAN CELL VOLUME 92.4 fL CALC (80.0-100.0); MEAN CORPUSCULAR HGB 29.1 pG CALC (26.0-32.0); MEAN CORPUSCULAR HGB CONC 31.4 g/L CALC (32.0-36.0); RED BLOOD COUNT 4.37 mill/uL (4.20-5.60); RED CELL DISTRI WIDTH 12.8 % (11.5-15.5)
[2019-02-02 05:54] LABS: ANION GAP 12 (6-22 (CALC)); BUN 23 mg/dL (8-23); BUN/CREATININE RATIO 70 (12-20 (CALC)); CARBON DIOXIDE 32 mmol/l (22-30); CHLORIDE 94 mmol/l (95-108); CREATININE 0.3 mg/dL (0.5-1.0); GFR > 60 ML/MIN (>=60 (CALC)); GFR FOR AFR.AMER. > 60 ML/MIN (>=60 (CALC)); MAGNESIUM 2.3 mg/dL (1.6-2.3); POTASSIUM 4.7 mmol/l (3.5-5.1); SODIUM 134 mmol/l (137-146)
[2019-02-02 08:18] VITALS: BP 146/67
--- NOTE | 2019-02-02 08:18 | NUR ---
PT SITTING IN BED, NO SIGNS OF DISTRESS NOTED, RESP EVEN AND UNLABORED. PT ALERT AND ORIENTED X3, DISCUSSED POC, PT C/O PAIN AT THIS TIME. MEDICATED PER MAR, ASSESSMENT COMPLETED AT THIS TIME. CALL LIGHT IN REACH,CONTINUE TO MONITOR.
[2019-02-02 12:00] VITALS: BP 129/73
--- NOTE | 2019-02-02 12:26 | NUR ---
PT SITTING IN BED WATCHING TV, PT REQUESTING XANAX. NO SIGNS OF DISTRESS NOTED, RESP EVEN AND UNLABORED. CALL LIGHT IN REACH,CONTINUE TO MONITOR.
[2019-02-02] MEDS ORDERED: MEDDOSEPAK PO (13:45)
[2019-02-02] MEDS ORDERED: DOXYCYC MONO100 M2 PO (13:45)
[2019-02-02] MEDS ORDERED: MYSOLINE50 M1 PO (13:45)
--- NOTE | 2019-02-02 14:25 | NUR ---
DISCUSSED DISCHARGE PLANS. PT DECIDED TO USE [facility] AT HOME FOR HOME HEALTH. FAXED TO FACILITY.
--- NOTE | 2019-02-02 14:30 | NUR ---
Discharge instructions given. Patient verbalizes understanding of same. Discharged in stable condition via Wheelchair to Home with spouse. All belongings sent with pt.
== END 2019-02-02 14:29 | disposition home health service (06) | DRG 189 ==
LOC: ED 20:34 → ED-I 21:47 → ED 22:04 → MS2 22:05
PROVIDERS: Emergency Medicine; Nurse Practitioner Family; ADMIT Internal Medicine Nephrology; ATTEND Internal Medicine Nephrology
DX: J96.22 Acute and chronic respiratory failure with hypercapnia (principal); J44.1 Chronic obstructive pulmonary disease with (acute) exacerbation; E46 Unspecified protein-calorie malnutrition; Z68.1 Body mass index [BMI] 19.9 or less, adult; J44.0 Chronic obstructive pulmonary disease with (acute) lower respiratory infection; J96.21 Acute and chronic respiratory failure with hypoxia; J20.9 Acute bronchitis, unspecified; I10 Essential (primary) hypertension; G40.909 Epilepsy, unspecified, not intractable, without status epilepticus; F32.9 Major depressive disorder, single episode, unspecified; E78.5 Hyperlipidemia, unspecified; K59.00 Constipation, unspecified; G89.4 Chronic pain syndrome; G25.0 Essential tremor; F41.1 Generalized anxiety disorder; M62.50 Muscle wasting and atrophy, not elsewhere classified, unspecified site; Z79.891 Long term (current) use of opiate analgesic; Z87.01 Personal history of pneumonia (recurrent); Z99.81 Dependence on supplemental oxygen
CPT/HCPCS: G0378; J1650; S0164

== ENCOUNTER 2019-02-06 17:50 | Emergency (ER) | payer OTHER, MEDICAID ==
[~2019-02-06] VITALS: Ht 162.6 cm; Wt 50.0 kg
[~2019-02-06 17:50] MED LIST changes: +DOXYCYC MONO100 M2 PO; +MEDDOSEPAK PO; +MYSOLINE50 M1 PO; +XANAX0.5 MG PO
[2019-02-06 18:24] LABS: IMMATURE GRANULOCYTES 2.4 % (0.0-5.0); MEAN CELL VOLUME 91.5 fL CALC (80.0-100.0); MEAN CORPUSCULAR HGB CONC 31.7 g/L CALC (32.0-36.0); NEUT# 21.61 thou/uL (2.00-7.15); RED BLOOD COUNT 3.41 mill/uL (4.20-5.60); RED CELL DISTRI WIDTH 13.3 % (11.5-15.5)
[2019-02-06 18:25] LABS: HEMATOCRIT 31.2 % (37.0-47.0); HEMOGLOBIN 9.9 g/dl (12.0-16.0)
[2019-02-06 18:37] LABS: ALBUMIN 3.7 g/dL (3.2-5.0); ALKALINE PHOSPHATASE 51 u/l (38-126); ANION GAP 10 (6-22 (CALC)); BILIRUBIN, TOTAL 0.3 mg/dL (0.0-1.4); BUN 39 mg/dL (8-23); BUN/CREATININE RATIO 92 (12-20 (CALC)); CARBON DIOXIDE 34 mmol/l (22-30); CHLORIDE 94 mmol/l (95-108); CREATININE 0.4 mg/dL (0.5-1.0); GFR > 60 ML/MIN (>=60 (CALC)); GFR FOR AFR.AMER. > 60 ML/MIN (>=60 (CALC)); POTASSIUM 4.2 mmol/l (3.5-5.1); SGOT/AST 19 u/l (9-36); SODIUM 133 mmol/l (137-146); TOTAL PROTEIN 6.1 g/dL (6.3-8.2)
[2019-02-06 19:29] LABS: ACT PARTIAL THROMBO TIME 21.2 SECONDS (20.0-32.5); INTERNATIONAL NORMALIZED RATIO 0.9 RATIO (0.7-1.3); PROTHROMBIN TIME 9.8 SECONDS (9.0-12.5)
[2019-02-06 19:31] LABS: AMYLASE 99 u/l (30-110); LIPASE 135 u/l (23-300)
[2019-02-06 19:41] LABS: MYOGLOBIN 22 ng/mL (0 - 62)
[2019-02-06 20:59] LABS: URINE BILIRUBIN - DIPSTICK NEGATIVE (NEGATIVE); URINE BLOOD DIPSTICK NEGATIVE (NEGATIVE); URINE COLOR YELLOW; URINE GLUCOSE - DIPSTICK NEGATIVE (NEGATIVE); URINE KETONE NEGATIVE (NEGATIVE); URINE LEUK ESTERASE NEGATIVE (NEGATIVE); URINE NITRITE - DIPSTICK NEGATIVE (Negative); URINE PROTEIN - DIPSTICK NEGATIVE (NEG-TRACE); URINE SPECIFIC GRAVITY 1.015; URINE UROBILINOGEN - DIPSTICK 0.2 E.U./dL (0.2)
[2019-02-06] MEDS ORDERED: FUROSEMIDE20 MG PO (22:53)
[2019-02-07 01:42] VITALS: BP 122/60
== END 2019-02-07 01:42 | disposition short-term general hospital (02) | DRG 313 ==
LOC: ED 17:50 → ED-I 21:52 → ED 02-07 01:42
PROVIDERS: Emergency Medicine
DX: R07.9 Chest pain, unspecified (principal); K92.2 Gastrointestinal hemorrhage, unspecified; D64.9 Anemia, unspecified; R53.1 Weakness; R11.0 Nausea; R10.9 Unspecified abdominal pain; I10 Essential (primary) hypertension; M54.2 Cervicalgia
CPT/HCPCS: S0164

== ENCOUNTER 2019-02-26 19:23 | Emergency (ER) | payer OTHER, MEDICAID ==
[~2019-02-26] VITALS: Ht 160 cm; Wt 46.4 kg
[2019-02-26 20:13] LABS: HEMATOCRIT 35.6 % (37.0-47.0); HEMOGLOBIN 11.2 g/dl (12.0-16.0); IMMATURE GRANULOCYTES 0.5 % (0.0-5.0); MEAN CELL VOLUME 90.1 fL CALC (80.0-100.0); MEAN CORPUSCULAR HGB 28.4 pG CALC (26.0-32.0); MEAN CORPUSCULAR HGB CONC 31.5 g/L CALC (32.0-36.0); NEUT# 2.12 thou/uL (2.00-7.15); RED BLOOD COUNT 3.95 mill/uL (4.20-5.60)
[2019-02-26 20:31] LABS: ALBUMIN 4.2 g/dL (3.2-5.0); ALKALINE PHOSPHATASE 64 u/l (38-126); AMYLASE 80 u/l (30-110); ANION GAP 12 (6-22 (CALC)); BILIRUBIN, TOTAL 0.3 mg/dL (0.0-1.4); BUN 13 mg/dL (8-23); BUN/CREATININE RATIO 31 (12-20 (CALC)); CARBON DIOXIDE 31 mmol/l (22-30); CHLORIDE 100 mmol/l (95-108); CREATININE 0.4 mg/dL (0.5-1.0); GFR > 60 ML/MIN (>=60 (CALC)); GFR FOR AFR.AMER. > 60 ML/MIN (>=60 (CALC)); LIPASE 144 u/l (23-300); SGOT/AST 26 u/l (9-36); SODIUM 139 mmol/l (137-146); TOTAL PROTEIN 6.6 g/dL (6.3-8.2)
[2019-02-26 21:37] LABS: URINE BILIRUBIN - DIPSTICK NEGATIVE (NEGATIVE); URINE BLOOD DIPSTICK NEGATIVE (NEGATIVE); URINE COLOR YELLOW; URINE GLUCOSE - DIPSTICK NEGATIVE (NEGATIVE); URINE KETONE NEGATIVE (NEGATIVE); URINE LEUK ESTERASE NEGATIVE (NEGATIVE); URINE NITRITE - DIPSTICK NEGATIVE (Negative); URINE PH 6.5 (4.5-8.0); URINE PROTEIN - DIPSTICK NEGATIVE (NEG-TRACE); URINE SPECIFIC GRAVITY <=1.005; URINE UROBILINOGEN - DIPSTICK 0.2 E.U./dL (0.2)
[2019-02-26] MEDS ORDERED: OMEPRAZOLE20 M2 PO (22:03)
[2019-02-26] MEDS ORDERED: LORTAB 5/3255 MG PO (22:03)
[2019-02-26] MEDS ORDERED: FLEXERIL PO (22:03)
[2019-02-26 22:20] VITALS: BP 115/65
== END 2019-02-26 22:20 | disposition home or self-care (01) | DRG 313 ==
LOC: ED 19:23
PROVIDERS: Family Medicine
DX: R07.89 Other chest pain (principal); R10.13 Epigastric pain; I10 Essential (primary) hypertension

== ENCOUNTER 2019-04-16 12:39 | Emergency (ER) | payer OTHER, MEDICAID ==
[~2019-04-16] VITALS: Ht 160 cm; Wt 60.0 kg
[~2019-04-16 12:39] MED LIST changes: +FLEXERIL PO; +LORTAB 5/3255 MG PO; +OMEPRAZOLE20 M2 PO
[2019-04-16 13:26] LABS: HEMOGLOBIN 12.3 g/dl (12.0-16.0); IMMATURE GRANULOCYTES 0.5 % (0.0-5.0); MEAN CELL VOLUME 90.5 fL CALC (80.0-100.0); MEAN CORPUSCULAR HGB 27.8 pG CALC (26.0-32.0); MEAN CORPUSCULAR HGB CONC 30.8 g/L CALC (32.0-36.0); NEUT# 3.49 thou/uL (2.00-7.15); RED BLOOD COUNT 4.42 mill/uL (4.20-5.60); RED CELL DISTRI WIDTH 14.7 % (11.5-15.5)
[2019-04-16 13:44] LABS: D-DIMER 0.18 mg/L (0.19-0.60); INTERNATIONAL NORMALIZED RATIO 0.9 RATIO (0.7-1.3); PROTHROMBIN TIME 9.8 SECONDS (9.0-12.5)
[2019-04-16 13:55] LABS: ALBUMIN 4.7 g/dL (3.2-5.0); ALKALINE PHOSPHATASE 76 u/l (38-126); ANION GAP 14 (6-22 (CALC)); BUN 11 mg/dL (8-23); BUN/CREATININE RATIO 26 (12-20 (CALC)); CARBON DIOXIDE 30 mmol/l (22-30); CHLORIDE 101 mmol/l (95-108); CREATININE 0.4 mg/dL (0.5-1.0); GFR > 60 ML/MIN (>=60 (CALC)); GFR FOR AFR.AMER. > 60 ML/MIN (>=60 (CALC)); POTASSIUM 4.8 mmol/l (3.5-5.1); SGOT/AST 45 u/l (9-36); SODIUM 139 mmol/l (137-146); TOTAL PROTEIN 7.8 g/dL (6.3-8.2)
[2019-04-16 14:00] LABS: BILIRUBIN, TOTAL 0.5 mg/dL (0.0-1.4)
[2019-04-16 14:06] LABS: MYOGLOBIN 29 ng/mL (0 - 62)
[2019-04-16 14:08] LABS: URINE BILIRUBIN - DIPSTICK NEGATIVE (NEGATIVE); URINE BLOOD DIPSTICK NEGATIVE (NEGATIVE); URINE COLOR YELLOW; URINE GLUCOSE - DIPSTICK NEGATIVE (NEGATIVE); URINE KETONE NEGATIVE (NEGATIVE); URINE LEUK ESTERASE NEGATIVE (NEGATIVE); URINE NITRITE - DIPSTICK NEGATIVE (Negative); URINE PROTEIN - DIPSTICK NEGATIVE (NEG-TRACE); URINE SPECIFIC GRAVITY <=1.005; URINE UROBILINOGEN - DIPSTICK 0.2 E.U./dL (0.2)
[2019-04-16] MEDS ORDERED: PREDNISONE50 MG PO (14:31)
[2019-04-16] MEDS ORDERED: ALBUTEROL SUL0.083 % IN (14:31)
[2019-04-16] MEDS ORDERED: TORADOL PO (14:31)
[2019-04-16 14:37] VITALS: BP 157/93
== END 2019-04-16 14:45 | disposition home or self-care (01) | DRG 192 ==
LOC: ED 12:39
PROVIDERS: Family Medicine
DX: J44.1 Chronic obstructive pulmonary disease with (acute) exacerbation (principal); R07.89 Other chest pain; R00.0 Tachycardia, unspecified; R06.02 Shortness of breath; R05 Cough; R10.84 Generalized abdominal pain

== ENCOUNTER 2019-05-01 01:13 | Emergency (ER) | payer OTHER, MEDICAID ==
[~2019-05-01] VITALS: Ht 160 cm; Wt 45.0 kg
[~2019-05-01 01:13] MED LIST changes: +PREDNISONE50 MG PO; +TORADOL PO
[2019-05-01 02:15] LABS: HEMOGLOBIN 10.9 g/dl (12.0-16.0); IMMATURE GRANULOCYTES 0.6 % (0.0-5.0); MEAN CELL VOLUME 87.9 fL CALC (80.0-100.0); MEAN CORPUSCULAR HGB 27.4 pG CALC (26.0-32.0); MEAN CORPUSCULAR HGB CONC 31.1 g/L CALC (32.0-36.0); NEUT# 8.28 thou/uL (2.00-7.15); RED BLOOD COUNT 3.98 mill/uL (4.20-5.60); RED CELL DISTRI WIDTH 14.8 % (11.5-15.5)
[2019-05-01 02:32] LABS: ALBUMIN 4.4 g/dL (3.2-5.0); ALKALINE PHOSPHATASE 80 u/l (38-126); BUN 9 mg/dL (8-23); BUN/CREATININE RATIO 16 (12-20 (CALC)); CARBON DIOXIDE 29 mmol/l (22-30); CHLORIDE 103 mmol/l (95-108); CREATININE 0.6 mg/dL (0.5-1.0); GFR > 60 ML/MIN (>=60 (CALC)); GFR FOR AFR.AMER. > 60 ML/MIN (>=60 (CALC)); SGOT/AST 31 u/l (9-36); SODIUM 142 mmol/l (137-146)
[2019-05-01 02:33] LABS: ANION GAP 14 (6-22 (CALC)); BILIRUBIN, TOTAL 0.2 mg/dL (0.0-1.4); POTASSIUM 3.6 mmol/l (3.5-5.1)
[2019-05-01 03:30] VITALS: BP 129/60
[2019-05-01] MEDS ORDERED: ULTRAM50 M1 PO (03:35)
== END 2019-05-01 04:15 | disposition home or self-care (01) | DRG 605 ==
LOC: ED 01:13
PROVIDERS: Emergency Medicine
DX: S20.212A Contusion of left front wall of thorax, initial encounter (principal); S30.0XXA Contusion of lower back and pelvis, initial encounter; Y93.55 Activity, bike riding; Y92.9 Unspecified place or not applicable

== ENCOUNTER 2019-05-06 09:44 | Emergency (ER) | payer OTHER, MEDICAID ==
[~2019-05-06] VITALS: Ht 160 cm; Wt 50.0 kg
[~2019-05-06 09:44] MED LIST changes: +ULTRAM50 M1 PO
[2019-05-06] MEDS ORDERED: PROTONIX40 M2 PO (11:23)
[2019-05-06] MEDS ORDERED: MYSOLINE50 M1 PO (11:25)
[2019-05-06 11:29] LABS: ALBUMIN 4.3 g/dL (3.2-5.0); ALKALINE PHOSPHATASE 80 u/l (38-126); BUN 10 mg/dL (8-23); BUN/CREATININE RATIO 23 (12-20 (CALC)); CARBON DIOXIDE 31 mmol/l (22-30); CHLORIDE 101 mmol/l (95-108); CREATININE 0.5 mg/dL (0.5-1.0); GFR > 60 ML/MIN (>=60 (CALC)); GFR FOR AFR.AMER. > 60 ML/MIN (>=60 (CALC)); HEMATOCRIT 37.4 % (37.0-47.0); HEMOGLOBIN 11.4 g/dl (12.0-16.0); IMMATURE GRANULOCYTES 0.5 % (0.0-5.0); MEAN CELL VOLUME 89.7 fL CALC (80.0-100.0); MEAN CORPUSCULAR HGB 27.3 pG CALC (26.0-32.0); MEAN CORPUSCULAR HGB CONC 30.5 g/L CALC (32.0-36.0); NEUT# 4.69 thou/uL (2.00-7.15); RED BLOOD COUNT 4.17 mill/uL (4.20-5.60); RED CELL DISTRI WIDTH 14.8 % (11.5-15.5); SGOT/AST 27 u/l (9-36); SODIUM 139 mmol/l (137-146); TOTAL PROTEIN 6.8 g/dL (6.3-8.2)
[2019-05-06 11:35] LABS: ANION GAP 12 (6-22 (CALC)); BILIRUBIN, TOTAL 0.3 mg/dL (0.0-1.4)
[2019-05-06 12:39] LABS: URINE BILIRUBIN - DIPSTICK NEGATIVE (NEGATIVE); URINE BLOOD DIPSTICK NEGATIVE (NEGATIVE); URINE COLOR YELLOW; URINE GLUCOSE - DIPSTICK NEGATIVE (NEGATIVE); URINE KETONE NEGATIVE (NEGATIVE); URINE NITRITE - DIPSTICK NEGATIVE (Negative); URINE PH 7.5 (4.5-8.0); URINE PROTEIN - DIPSTICK NEGATIVE (NEG-TRACE); URINE UROBILINOGEN - DIPSTICK 0.2 E.U./dL (0.2)
[2019-05-06 12:42] LABS: URINE LEUK ESTERASE SMALL (NEGATIVE)
[2019-05-06 12:43] LABS: URINE RBC 0-2 RBC/hpf (0-5)
[2019-05-06] MEDS ORDERED: PERCOCET1 TA2 PO (12:51)
[2019-05-06 12:53] VITALS: BP 148/70
== END 2019-05-06 13:13 | disposition home or self-care (01) | DRG 605 ==
LOC: ED 09:44
PROVIDERS: Emergency Medicine
DX: S20.212A Contusion of left front wall of thorax, initial encounter (principal); R07.81 Pleurodynia; V18.0XXA Pedal cycle driver injured in noncollision transport accident in nontraffic accident, initial encounter; Y93.55 Activity, bike riding; Y92.009 Unspecified place in unspecified non-institutional (private) residence as the place of occurrence of the external cause
CPT/HCPCS: Q9967

== ENCOUNTER 2019-05-27 20:12 | Observation (INO) | payer OTHER, MEDICAID ==
[~2019-05-27] VITALS: Ht 274.3 cm; Wt 49.0 kg
[~2019-05-27 20:12] MED LIST changes: +PERCOCET1 TA2 PO; +PROTONIX40 M2 PO
[2019-05-27 20:56] LABS: HEMATOCRIT 33.4 % (37.0-47.0); HEMOGLOBIN 10.4 g/dl (12.0-16.0); IMMATURE GRANULOCYTES 0.7 % (0.0-5.0); MEAN CELL VOLUME 87.9 fL CALC (80.0-100.0); MEAN CORPUSCULAR HGB 27.4 pG CALC (26.0-32.0); MEAN CORPUSCULAR HGB CONC 31.1 g/L CALC (32.0-36.0); RED BLOOD COUNT 3.8 mill/uL (4.20-5.60); RED CELL DISTRI WIDTH 14.6 % (11.5-15.5)
[2019-05-27 20:57] LABS: URINE BILIRUBIN - DIPSTICK NEGATIVE (NEGATIVE); URINE BLOOD DIPSTICK TRACE-LYSED (NEGATIVE); URINE COLOR YELLOW; URINE GLUCOSE - DIPSTICK NEGATIVE (NEGATIVE); URINE KETONE 15 mg/dL (NEGATIVE); URINE LEUK ESTERASE NEGATIVE (NEGATIVE); URINE NITRITE - DIPSTICK NEGATIVE (Negative); URINE PROTEIN - DIPSTICK NEGATIVE (NEG-TRACE); URINE UROBILINOGEN - DIPSTICK 0.2 E.U./dL (0.2)
[2019-05-27 21:09] LABS: ALKALINE PHOSPHATASE 84 u/l (38-126); AMYLASE 59 u/l (30-110); ANION GAP 13 (6-22 (CALC)); BUN 9 mg/dL (8-23); BUN/CREATININE RATIO 29 (12-20 (CALC)); CARBON DIOXIDE 28 mmol/l (22-30); CHLORIDE 100 mmol/l (95-108); CREATININE 0.3 mg/dL (0.5-1.0); GFR > 60 ML/MIN (>=60 (CALC)); GFR FOR AFR.AMER. > 60 ML/MIN (>=60 (CALC)); LIPASE 57 u/l (23-300); POTASSIUM 4.7 mmol/l (3.5-5.1); SGOT/AST 29 u/l (9-36); SODIUM 136 mmol/l (137-146); TOTAL PROTEIN 6.5 g/dL (6.3-8.2)
[2019-05-27 21:13] LABS: BILIRUBIN, TOTAL 0.5 mg/dL (0.0-1.4)
[2019-05-27 21:21] LABS: MYOGLOBIN 28 ng/mL (0 - 62)
[2019-05-27 22:27] VITALS: BP 120/79
[2019-05-28] VITALS (7 sets, daily range): BP systolic 95–157; BP diastolic 56–83
[2019-05-28] MEDS ORDERED: DILTIAZEM240 M1 PO (13:38)
[2019-05-29 03:51] VITALS: BP 99/49
[2019-05-29 05:06] LABS: HEMATOCRIT 31.2 % (37.0-47.0); HEMOGLOBIN 9.6 g/dl (12.0-16.0); MEAN CELL VOLUME 87.9 fL CALC (80.0-100.0); MEAN CORPUSCULAR HGB CONC 30.8 g/L CALC (32.0-36.0); NEUT# 14.9 thou/uL (2.00-7.15); RED BLOOD COUNT 3.55 mill/uL (4.20-5.60); RED CELL DISTRI WIDTH 14.5 % (11.5-15.5)
[2019-05-29 05:30] LABS: ALBUMIN 3.5 g/dL (3.2-5.0); ALKALINE PHOSPHATASE 72 u/l (38-126); AMYLASE 55 u/l (30-110); ANION GAP 12 (6-22 (CALC)); BUN 14 mg/dL (8-23); BUN/CREATININE RATIO 37 (12-20 (CALC)); CARBON DIOXIDE 30 mmol/l (22-30); CHLORIDE 100 mmol/l (95-108); CREATININE 0.4 mg/dL (0.5-1.0); GFR > 60 ML/MIN (>=60 (CALC)); GFR FOR AFR.AMER. > 60 ML/MIN (>=60 (CALC)); LIPASE 49 u/l (23-300); MAGNESIUM 1.9 mg/dL (1.6-2.3); POTASSIUM 4.2 mmol/l (3.5-5.1); SGOT/AST 23 u/l (9-36); SODIUM 138 mmol/l (137-146); TOTAL PROTEIN 5.9 g/dL (6.3-8.2)
[2019-05-29 05:32] LABS: BILIRUBIN, TOTAL 0.1 mg/dL (0.0-1.4)
[2019-05-29 08:52] VITALS: BP 134/67
[2019-05-29 13:24] VITALS: BP 106/52
[2019-05-29 16:22] VITALS: BP 114/64
[2019-05-29 19:20] VITALS: BP 115/63
[2019-05-30 00:18] VITALS: BP 122/69
[2019-05-30 03:43] LABS: HEMATOCRIT 31.6 % (37.0-47.0); HEMOGLOBIN 9.4 g/dl (12.0-16.0); IMMATURE GRANULOCYTES 1.5 % (0.0-5.0); MEAN CELL VOLUME 88.8 fL CALC (80.0-100.0); MEAN CORPUSCULAR HGB 26.4 pG CALC (26.0-32.0); MEAN CORPUSCULAR HGB CONC 29.7 g/L CALC (32.0-36.0); NEUT# 15.57 thou/uL (2.00-7.15); RED BLOOD COUNT 3.56 mill/uL (4.20-5.60); RED CELL DISTRI WIDTH 14.6 % (11.5-15.5)
[2019-05-30 04:13] LABS: ALBUMIN 3.6 g/dL (3.2-5.0); ALKALINE PHOSPHATASE 68 u/l (38-126); ANION GAP 13 (6-22 (CALC)); BILIRUBIN, TOTAL 0.1 mg/dL (0.0-1.4); BUN 14 mg/dL (8-23); BUN/CREATININE RATIO 34 (12-20 (CALC)); CARBON DIOXIDE 29 mmol/l (22-30); CHLORIDE 101 mmol/l (95-108); CREATININE 0.4 mg/dL (0.5-1.0); GFR > 60 ML/MIN (>=60 (CALC)); GFR FOR AFR.AMER. > 60 ML/MIN (>=60 (CALC)); POTASSIUM 4.3 mmol/l (3.5-5.1); SGOT/AST 36 u/l (9-36); SODIUM 138 mmol/l (137-146); TOTAL PROTEIN 5.9 g/dL (6.3-8.2)
[2019-05-30 04:51] VITALS: BP 104/68
[2019-05-30 07:58] VITALS: BP 140/66
[2019-05-30 11:10] VITALS: BP 135/63
[2019-05-30 16:00] VITALS: BP 116/69
[2019-05-30 19:30] VITALS: BP 127/75
[2019-05-31] VITALS (7 sets, daily range): BP systolic 124–158; BP diastolic 62–86
[2019-05-31 05:23] LABS: HEMATOCRIT 32.1 % (37.0-47.0); HEMOGLOBIN 9.7 g/dl (12.0-16.0); IMMATURE GRANULOCYTES 2.3 % (0.0-5.0); MEAN CELL VOLUME 88.9 fL CALC (80.0-100.0); MEAN CORPUSCULAR HGB 26.9 pG CALC (26.0-32.0); MEAN CORPUSCULAR HGB CONC 30.2 g/L CALC (32.0-36.0); NEUT# 10.11 thou/uL (2.00-7.15); RED BLOOD COUNT 3.61 mill/uL (4.20-5.60); RED CELL DISTRI WIDTH 14.6 % (11.5-15.5)
[2019-05-31 05:44] LABS: ALBUMIN 3.6 g/dL (3.2-5.0); ALKALINE PHOSPHATASE 71 u/l (38-126); ANION GAP 12 (6-22 (CALC)); BILIRUBIN, TOTAL 0.2 mg/dL (0.0-1.4); BUN 13 mg/dL (8-23); BUN/CREATININE RATIO 34 (12-20 (CALC)); CARBON DIOXIDE 31 mmol/l (22-30); CHLORIDE 99 mmol/l (95-108); CREATININE 0.4 mg/dL (0.5-1.0); GFR > 60 ML/MIN (>=60 (CALC)); GFR FOR AFR.AMER. > 60 ML/MIN (>=60 (CALC)); MAGNESIUM 2.1 mg/dL (1.6-2.3); POTASSIUM 4.1 mmol/l (3.5-5.1); SGOT/AST 47 u/l (9-36); SODIUM 138 mmol/l (137-146); TOTAL PROTEIN 5.9 g/dL (6.3-8.2)
[2019-06-01 00:02] VITALS: BP 144/71
[2019-06-01 04:18] VITALS: BP 129/65
[2019-06-01 08:00] VITALS: BP 140/80
[2019-06-01 10:36] VITALS: BP 125/75
[2019-06-01 14:55] VITALS: BP 132/78
[2019-06-01 20:11] VITALS: BP 154/76
[2019-06-02 00:08] VITALS: BP 140/73
[2019-06-02 04:32] VITALS: BP 141/70
[2019-06-02 08:36] VITALS: BP 135/69
[2019-06-02 11:00] VITALS: BP 169/84
[2019-06-02] MEDS ORDERED: PREDNISONE10 MG PO (11:17)
[2019-06-02] MEDS ORDERED: PERCOCET1 TA2 PO (11:17)
== END 2019-06-02 13:07 | disposition home or self-care (01) | DRG 192 ==
LOC: ED 20:12 → ED-I 21:57 → ED 22:18 → MS2 22:19
PROVIDERS: Emergency Medicine; Internal Medicine Nephrology; ADMIT Internal Medicine; ATTEND Internal Medicine
DX: J43.9 Emphysema, unspecified (principal); I10 Essential (primary) hypertension; G40.909 Epilepsy, unspecified, not intractable, without status epilepticus; E78.5 Hyperlipidemia, unspecified; K21.9 Gastro-esophageal reflux disease without esophagitis; F41.8 Other specified anxiety disorders; G25.0 Essential tremor; G89.4 Chronic pain syndrome; M81.0 Age-related osteoporosis without current pathological fracture; R07.89 Other chest pain; W06.XXXA Fall from bed, initial encounter; Z87.01 Personal history of pneumonia (recurrent); Z87.891 Personal history of nicotine dependence; Z87.11 Personal history of peptic ulcer disease; Z99.81 Dependence on supplemental oxygen
CPT/HCPCS: J1650

== ENCOUNTER 2019-08-20 12:02 | Emergency (ER) | payer OTHER, MEDICAID ==
[~2019-08-20] VITALS: Ht 160 cm; Wt 55.0 kg
[~2019-08-20 12:02] MED LIST changes: +DILTIAZEM240 M1 PO
[2019-08-20 16:04] VITALS: BP 143/93
== END 2019-08-20 16:15 | disposition home or self-care (01) | DRG 918 ==
LOC: ED 12:02
DX: T42.6X1A Poisoning by other antiepileptic and sedative-hypnotic drugs, accidental (unintentional), initial encounter (principal); T43.591A Poisoning by other antipsychotics and neuroleptics, accidental (unintentional), initial encounter; T46.1X1A Poisoning by calcium-channel blockers, accidental (unintentional), initial encounter; I10 Essential (primary) hypertension; J44.9 Chronic obstructive pulmonary disease, unspecified; G40.909 Epilepsy, unspecified, not intractable, without status epilepticus

== ENCOUNTER 2019-12-03 18:22 | Observation (INO) | payer OTHER, MEDICAID ==
[~2019-12-03] VITALS: Ht 160 cm; Wt 51.0 kg
[2019-12-03] MEDS ORDERED: SPIRIVA IN (19:07)
[2019-12-03 19:09] LABS: IMMATURE GRANULOCYTES 0.4 % (0.0-5.0); MEAN CELL VOLUME 85.9 fL CALC (80.0-100.0); MEAN CORPUSCULAR HGB 26.9 pG CALC (26.0-32.0); MEAN CORPUSCULAR HGB CONC 31.3 g/L CALC (32.0-36.0); NEUT# 13.62 thou/uL (2.00-7.15); RED BLOOD COUNT 4.68 mill/uL (4.20-5.60); RED CELL DISTRI WIDTH 16.6 % (11.5-15.5)
[2019-12-03 19:15] LABS: HEMATOCRIT 40.2 % (37.0-47.0); HEMOGLOBIN 12.6 g/dl (12.0-16.0)
[2019-12-03 19:24] LABS: D-DIMER 0.22 mg/L (0.19-0.60)
[2019-12-03 19:25] LABS: ALKALINE PHOSPHATASE 76 u/l (38-126); ANION GAP 13 (6-22 (CALC)); BILIRUBIN, TOTAL 0.2 mg/dL (0.0-1.4); BUN 10 mg/dL (8-23); BUN/CREATININE RATIO 27 (12-20 (CALC)); CARBON DIOXIDE 32 mmol/l (22-30); CHLORIDE 96 mmol/l (95-108); CREATININE 0.4 mg/dL (0.5-1.0); GFR > 60 ML/MIN (>=60 (CALC)); GFR FOR AFR.AMER. > 60 ML/MIN (>=60 (CALC)); SGOT/AST 28 u/l (9-36); SODIUM 137 mmol/l (137-146)
[2019-12-03 19:28] LABS: ALBUMIN 4.8 g/dL (3.2-5.0); TOTAL PROTEIN 8.4 g/dL (6.3-8.2)
[2019-12-03 19:37] LABS: MYOGLOBIN 29 ng/mL (0 - 62)
[2019-12-03 23:45] VITALS: BP 96/52
[2019-12-04 03:40] VITALS: BP 101/63
[2019-12-04 08:00] VITALS: BP 85/47
[2019-12-04 09:20] LABS: HEMOGLOBIN 10.7 g/dl (12.0-16.0); MEAN CELL VOLUME 84.7 fL CALC (80.0-100.0); MEAN CORPUSCULAR HGB 26.8 pG CALC (26.0-32.0); MEAN CORPUSCULAR HGB CONC 31.7 g/L CALC (32.0-36.0); RED BLOOD COUNT 3.99 mill/uL (4.20-5.60); RED CELL DISTRI WIDTH 16.5 % (11.5-15.5)
[2019-12-04 09:21] LABS: HEMATOCRIT 33.8 % (37.0-47.0)
[2019-12-04 10:21] LABS: ANION GAP 14 (6-22 (CALC)); BUN 14 mg/dL (8-23); BUN/CREATININE RATIO 34 (12-20 (CALC)); CARBON DIOXIDE 28 mmol/l (22-30); CHLORIDE 96 mmol/l (95-108); CREATININE 0.4 mg/dL (0.5-1.0); GFR > 60 ML/MIN (>=60 (CALC)); GFR FOR AFR.AMER. > 60 ML/MIN (>=60 (CALC)); POTASSIUM 3.6 mmol/l (3.5-5.1); SODIUM 134 mmol/l (137-146)
[2019-12-04 15:24] VITALS: BP 125/67
[2019-12-04 19:22] VITALS: BP 113/65
[2019-12-05 04:30] VITALS: BP 108/63
[2019-12-05 07:08] VITALS: BP 113/70
[2019-12-05 15:00] VITALS: BP 104/58
[2019-12-05 19:08] VITALS: BP 136/73
[2019-12-05 23:30] VITALS: BP 109/65
[2019-12-06 04:40] VITALS: BP 122/65
[2019-12-06 07:30] VITALS: BP 111/62
[2019-12-06 11:17] VITALS: BP 129/52
[2019-12-06 15:23] VITALS: BP 126/69
[2019-12-06 18:32] VITALS: BP 120/65
[2019-12-07 04:14] VITALS: BP 128/70
[2019-12-07 08:03] VITALS: BP 135/79
[2019-12-07 09:10] VITALS: BP 135/79
[2019-12-07] MEDS ORDERED: Levaquin PO (15:07)
[2019-12-07] MEDS ORDERED: MUCINEX600 MG PO (15:07)
[2019-12-07] MEDS ORDERED: SINGULAIR10 MG PO (15:07)
[2019-12-07] MEDS ORDERED: LEVALBUTER1.25 MG/0. NEB (15:07)
[2019-12-07] MEDS ORDERED: PREDNISONE20 MG PO (15:07)
== END 2019-12-07 16:41 | disposition home or self-care (01) | DRG 190 ==
LOC: ED 18:22 → ED-I 21:37 → ED 22:04 → MS2 22:05
PROVIDERS: Family Medicine; Nurse Practitioner Family; ADMIT Internal Medicine; ATTEND Internal Medicine
DX: J44.1 Chronic obstructive pulmonary disease with (acute) exacerbation (principal); J96.21 Acute and chronic respiratory failure with hypoxia; J18.9 Pneumonia, unspecified organism; J96.12 Chronic respiratory failure with hypercapnia; J44.0 Chronic obstructive pulmonary disease with (acute) lower respiratory infection; R00.0 Tachycardia, unspecified; I10 Essential (primary) hypertension; G40.909 Epilepsy, unspecified, not intractable, without status epilepticus; F41.9 Anxiety disorder, unspecified; M25.511 Pain in right shoulder; Z99.81 Dependence on supplemental oxygen; Z87.01 Personal history of pneumonia (recurrent); Z87.891 Personal history of nicotine dependence
CPT/HCPCS: G0378

== ENCOUNTER 2019-12-09 11:10 | Inpatient (IN) | payer OTHER, MEDICAID ==
[~2019-12-09] VITALS: Ht 160 cm; Wt 51.0 kg
[~2019-12-09 11:10] MED LIST changes: +LEVALBUTER1.25 MG/0. NEB; +Levaquin PO; +MUCINEX600 MG PO; +SINGULAIR10 MG PO; +SPIRIVA IN
--- NOTE | 2019-12-09 11:10 | NUR ---
PT TO ROOM VIA EMS STRETCHER.
--- NOTE | 2019-12-09 12:27 | NUR ---
PT RESTING QUIETLY ON STRETCHER, WARM BLANKET GIVEN, FAMILY AT BEDSIDE, IV FLUIDS INFUSING
[2019-12-09 12:48] LABS: IMMATURE GRANULOCYTES 2.7 % (0.0-5.0); MEAN CELL VOLUME 86.2 fL CALC (80.0-100.0); MEAN CORPUSCULAR HGB 26.8 pG CALC (26.0-32.0); MEAN CORPUSCULAR HGB CONC 31.2 g/L CALC (32.0-36.0); NEUT# 8.41 thou/uL (2.00-7.15); RED BLOOD COUNT 5.14 mill/uL (4.20-5.60); RED CELL DISTRI WIDTH 16.9 % (11.5-15.5)
[2019-12-09 12:52] LABS: HEMATOCRIT 44.3 % (37.0-47.0); HEMOGLOBIN 13.8 g/dl (12.0-16.0)
[2019-12-09 12:58] LABS: ALBUMIN 4.1 g/dL (3.2-5.0); ALKALINE PHOSPHATASE 70 u/l (38-126); AMYLASE 93 u/l (30-110); BUN 17 mg/dL (8-23); BUN/CREATININE RATIO 37 (12-20 (CALC)); CHLORIDE 94 mmol/l (95-108); CREATININE 0.5 mg/dL (0.5-1.0); GFR > 60 ML/MIN (>=60 (CALC)); GFR FOR AFR.AMER. > 60 ML/MIN (>=60 (CALC)); LIPASE 44 u/l (23-300); POTASSIUM 2.9 mmol/l (3.5-5.1); SGOT/AST 28 u/l (9-36); SODIUM 137 mmol/l (137-146); TOTAL PROTEIN 7.1 g/dL (6.3-8.2)
[2019-12-09 12:59] LABS: ANION GAP 7 (6-22 (CALC)); BILIRUBIN, TOTAL 0.4 mg/dL (0.0-1.4); CARBON DIOXIDE 39 mmol/l (22-30)
--- NOTE | 2019-12-09 13:23 | NUR ---
NO VOMITING SINCE ARRIVAL, PT STATES STILL DOESNT FEEL VERY GOOD. STATES WANTS TO STAY IN HOSPITAL
--- NOTE | 2019-12-09 14:38 | NUR ---
CT CALLED AND STATED IV INFILTRATED. NOTIFIED.
--- NOTE | 2019-12-09 15:43 | NUR ---
REPORT CALLED, PT TAKEN TO MED SURG PER TADEO
--- NOTE | 2019-12-09 16:00 | NUR ---
PT ARRIVED TO MED/SURG ROOM 289 IN STABLE CONDITION VIA STRETCHER ACCOMPANIED BY KIMBERLEE JADE;PT AMBULATED TO STANDING SCALE AND BEDSIDE WITH A WEAK GAIT AND 1 PERSON ASSIST;PT A&O X4,ORIENTED TO ROOM AND CLAL LIGHT SYSTEM;PT DENIES ANY CURRENT PAIN,PAIN SCALE AND REPORTING EDUCATED;PT REPORTS BEING D/C FROM [facility] ON Sunday12/07/2019.ON Sunday12/08/2019 SHE BECAME NAUSEOUS WITH VOMIT AND DIARRHEA;ASSESSMENT COMPLETED;RESPIRATIONS EVEN AND UNLABORED,SHALLOW ON O2 @ 2L VIA NC;IT SHOULD BE NOTED THAT PT IS HOME OXYGEN DEPENDENT;DIMINISHED LUNG SOUNDS;ABDOMEN SOFT ON PALPATION AND ACTIVE IN ALL 4 QUADRANTS,LAST BM 12/09/19;PT EDUCATED ON THE NEED FOR A STOOL SAMPLE AND VERBALIZES UNDERSTANDING;WEAK PEDAL PULSES;SKIN INTACT;TELE MONITORING IN PLACE;#24G TO LEFT WRIST INFUSING IV FLUIDS WITH EASE, NS TO BE STARTED @ 100ML/HR PER ORDER;SEIZURE PRECAUTIONS IN PLACE;CLEAR LIQUID DIET REINFORCED;PT DENIES ANY ADDITIONAL NEEDS AT THIS TIME AND IS ENCOURAGED TO CALL FOR ASSISTANCE IF NEEDED;FALL PRECAUTIONS IN PLACE WITH BED IN THE LOWEST POSITION AND CALL LIGHT IN REACH;WILL CONTINUE TO MONITOR
[2019-12-09 16:05] VITALS: BP 130/71
[2019-12-09 16:17] LABS: URINE BILIRUBIN - DIPSTICK NEGATIVE (NEGATIVE); URINE BLOOD DIPSTICK NEGATIVE (NEGATIVE); URINE COLOR YELLOW; URINE GLUCOSE - DIPSTICK NEGATIVE (NEGATIVE); URINE KETONE NEGATIVE (NEGATIVE); URINE NITRITE - DIPSTICK NEGATIVE (Negative); URINE PH 7.5 (4.5-8.0); URINE PROTEIN - DIPSTICK NEGATIVE (NEG-TRACE); URINE UROBILINOGEN - DIPSTICK 0.2 E.U./dL (0.2)
[2019-12-09 16:20] LABS: URINE LEUK ESTERASE TRACE (NEGATIVE)
--- NOTE | 2019-12-09 16:32 | NUR ---
PT MEDICATED WITH PRN XANAX 0.5MG PO PER REQUEST FOR ANXIETY.
[2019-12-09 19:35] VITALS: BP 124/68
--- NOTE | 2019-12-09 20:04 | NUR ---
PATIENT RESTING IN BED WITH LIGHTS OFF. EASY TO AROUSE. ALERT AND ORIENTEDX3. STATES THAT SHE WANTS TO SLEEP. DENIES ANY STOOLS OR N/V AT THIS TIME. INSTRUCTED NEED FOR STOOL SPEC WHEN ABLE TO PROVIDE. SIDERAILS PADDED FOR SEIZURE PRECAUTIONS. TELE MONITOR IN PLACE. SALINE LOCK TO LEFT SRIST INTACT WITH IVF NS PATENT AND INFUSING AT 100CC/HR. O2 VIA NASAL CANNULA IN PLACE AT 2LPM-PATIENT DEPENDANT 11/06. HAS HHOME O2. SAFETY PREAUTIONS REINFORCED. CALL LIGHT IN REACH. WILL CONT TO MONITOR.
--- NOTE | 2019-12-09 20:55 | NUR ---
PATIENT RESTING IN BED WITH O2 VIA NASAL CANNULA IN PLACE. HS MEDS PROVIDED FOR PATIENT ORDERED. REFUSED LOVENOX INJECTION TONIGHT. TELE MONITOR IN PLACE. IVF PATENT AND INFUSING VIA LEFT WRIST SITE. SAFETY AND SEIZURE PRECAUTIONS IN PLACE. CALL LIGHT IN REACH. WILL CONT TO MONITOR.
--- NOTE | 2019-12-10 01:57 | NUR ---
PATIENT RESTING IN BED WITH O2 VIA NASAL CANNULA IN PLACE. MEDICATED FOR ANXIETY WITH XANAX 0.5MG PO. VOIDING QS SUMIT URINE ON BSC. TELE MONITOR IN PLACE. IVF PATENT AND INFUSING VIA RIGHT WRIST, SASFETY AND SEIZURE PRECAUTIONS REINFORCED. CALL LIGHT IN REACH. WILL CONT TO MONITOR.
[2019-12-10 04:33] VITALS: BP 108/68
--- NOTE | 2019-12-10 04:55 | NUR ---
APPEARS SLEEPING AT THIS TIME WITH O2 VIA NASAL CANNULA IN PLACE. EYES CLOSED AND RESPS EVEN AND UNLABORED. TELE MONITOR IN PLACE. IVF PATENT AND INFUSING AT 100CC/HR. SITE TO LEFT WRIST INTACT. CALL LIGHT IN REACH. WILL CONT TO MONITOR.
[2019-12-10 05:51] LABS: ANION GAP 7 (6-22 (CALC)); BUN 11 mg/dL (8-23); BUN/CREATININE RATIO 30 (12-20 (CALC)); CHLORIDE 103 mmol/l (95-108); CREATININE 0.4 mg/dL (0.5-1.0); GFR > 60 ML/MIN (>=60 (CALC)); GFR FOR AFR.AMER. > 60 ML/MIN (>=60 (CALC)); MAGNESIUM 2.1 mg/dL (1.6-2.3); POTASSIUM 3.2 mmol/l (3.5-5.1); SODIUM 138 mmol/l (137-146)
[2019-12-10 05:55] LABS: CARBON DIOXIDE 31 mmol/l (22-30)
[2019-12-10 06:28] LABS: HEMATOCRIT 38.7 % (37.0-47.0); IMMATURE GRANULOCYTES 2.5 % (0.0-5.0); MEAN CELL VOLUME 86.4 fL CALC (80.0-100.0); MEAN CORPUSCULAR HGB CONC 31.3 g/L CALC (32.0-36.0); NEUT# 6.39 thou/uL (2.00-7.15); RED BLOOD COUNT 4.48 mill/uL (4.20-5.60); RED CELL DISTRI WIDTH 17.1 % (11.5-15.5)
[2019-12-10 06:29] LABS: HEMOGLOBIN 12.1 g/dl (12.0-16.0)
[2019-12-10 07:26] VITALS: BP 113/64
--- NOTE | 2019-12-10 08:06 | NUR ---
ASSESSMENT DONE. PT IS A&O X3. PT DENIES PAIN. PT ASKING FOR HER XANAX TOLD PT IS NOT DUE YET. PT VERBALIZED UNDERSTANDING. IVF INFUSING WELL. TELE IN PLACE. O2 AT 2L VIA NC. PT DENIES ANY OTHER NEEDS AT THIS TIME. CALL LIGHT IN REACH.
[2019-12-10] MEDS ORDERED: XANAX0.5 MG PO (10:57)
[2019-12-10] MEDS ORDERED: PAXIL30 MG PO (11:00)
[2019-12-10 11:30] VITALS: BP 96/51
--- NOTE | 2019-12-10 12:00 | NUR ---
PT IS SITTING IN BED TRYING TO EAT HER LUNCH. PT DENIES NEEDS AT THIS TIME. CALL LIGHT IN REACH.
[2019-12-10 16:07] VITALS: BP 112/54
--- NOTE | 2019-12-10 16:32 | NUR ---
PT STATED SHE HAS NAUSEA. MEDICATED PT WITH PHENERGAN. FAMILY IN ROOM. CALL LIGHT IN REACH.
--- NOTE | 2019-12-10 18:50 | NUR ---
REPORT FROM LUDA MOHAN. PT RESTING IN BED. NO APPARENT DISTRESS NOTED. PT DENIES ANY PAIN OR NAUSEA. PT STATES " I JUST DON'T FEEL GOOD". O2 @ 2L/M VIA NC. CONSTRUCTION FLAGGER IN PLACE. PT DENIES ANY CURRENT WANTS OR NEEDS. DISCUSSED POC. PT VERBALIZED UNDERSTANDING. CALL LIGHT WITHIN REACH. WILL CONTINUE TO MONITOR.
[2019-12-10 19:35] VITALS: BP 103/60
--- NOTE | 2019-12-10 23:45 | NUR ---
PT REQUESTING SNACK. ICE CREAM PROVIDED UPON REQUEST. PT DENIES ANY OTHER WANTS OR NEEDS. CALL LIGHT WITHIN REACH. WILL CONTINUE TO MONITOR.
[2019-12-11 00:12] VITALS: BP 91/56
--- NOTE | 2019-12-11 03:20 | NUR ---
PT RESTING IN BED WITH EYES CLOSED. NO APPARENT DISTRESS NOTED. CALL LIGHT WITHIN REACH. WILL CONTINUE TO MONITOR.
[2019-12-11 03:34] VITALS: BP 118/69
[2019-12-11 05:49] LABS: ANION GAP 7 (6-22 (CALC)); BUN 9 mg/dL (8-23); BUN/CREATININE RATIO 38 (12-20 (CALC)); CARBON DIOXIDE 27 mmol/l (22-30); CHLORIDE 105 mmol/l (95-108); CREATININE 0.2 mg/dL (0.5-1.0); GFR > 60 ML/MIN (>=60 (CALC)); GFR FOR AFR.AMER. > 60 ML/MIN (>=60 (CALC)); POTASSIUM 3.5 mmol/l (3.5-5.1); SODIUM 136 mmol/l (137-146)
[2019-12-11 07:37] VITALS: BP 115/70
--- NOTE | 2019-12-11 08:30 | NUR ---
ASSESSMENT DONE. PT IS A&O X3. PT DENIES PAIN AT THIS TIME. IVF INFUSING WELL. O2 AT 2L VIA NC. TELE IN PLACE. PT DENIES NEEDS AT THIS TIME. CALL LIGTH IN REACH.
[2019-12-11 10:40] VITALS: BP 136/79
--- NOTE | 2019-12-11 12:13 | NUR ---
ED CALLED THAT PT IS [address]. CHECK ON PT. PT IS EATING AND STATED SHE GETS SOB WHEN SHE EATS. PT STATED IM FINE. PT IN ROOM. CALL LIGHT IN REACH. NOTIFIED DREW PATEL AND ABELINO.
--- NOTE | 2019-12-11 12:59 | NUR ---
UNABLE TO GET IV AND PT DOES NOT WANT ANOTHER IV. NOTIFIED DR. ROCA ORDERS RECEIVED TO DC TELE.
[2019-12-11 14:45] VITALS: BP 124/59
--- NOTE | 2019-12-11 15:30 | NUR ---
PT IS RESTING IN BED AND USING HER TABLET. PT DENIES NEEDS AT THIS TIME. CALL LIGHT IN REACH. NO IV SITE.
[2019-12-11 19:03] VITALS: BP 126/63
--- NOTE | 2019-12-11 19:15 | NUR ---
REPORT FROM LUDA MOHAN. PT SITTING UP IN BED. NO APPARENT DISTRESS NOTED. 02 @ 2L/M VIA NC. PT DENIES ANY PAIN OR DISCOMFORT. PT STATES SHE IS FEELING BETTER TODAY. NO IV SITE OR TELEMETRY NOTED. DISCUSSED POC. PT VERBALIZED UNDERSTANDING. CALL LIGHT WITHIN REACH. WILL CONTINUE TO MONITOR.
--- NOTE | 2019-12-11 21:25 | NUR ---
PT C/O SOB AND ANXIETY. PT SITTING UP IN BED WITH LABORED RESPIRATIONS. MEDICATED AT THIS TIME FOR ANXIETY AND RT CALLED FOR NEB TREATMENT. WILL CONTINUE TO MONITOR.
[2019-12-11 22:20] LABS: C. DIFFICILE TOXIN A&B NEGATIVE (NEGATIVE)
--- NOTE | 2019-12-12 00:45 | NUR ---
PT RESTING IN BED. NO APPARENT RESPIRATORY DISTRESS OR ANXIETY NOTED AT THIS TIME. PT STATES SHE FEELS BETTER. CALL LIGHT WITHIN REACH. WILL CONTINUE TO MONITOR.
[2019-12-12 04:00] VITALS: BP 105/51
--- NOTE | 2019-12-12 05:42 | NUR ---
PT MEDICATED FOR ANXIETY WITH PRN PO XANAX. PT DENIES ANY OTHER WANTS OR NEEDS. NO APPARENT RESPIRATORY DISTRESS NOTED. CALL LIGHT WITHIN REACH. WILL CONTINUE TO MONITOR.
--- NOTE | 2019-12-12 07:00 | NUR ---
SHFIT CHANGE REPORT, PT SLEEPING BUT AROUSES TO VERBAL STIMULI, ORIENTED, NO C/O DISCOMFORT AT THIS TIME, BED IN LOWEST POSITION AND CALL MURILLO IN REACH,
[2019-12-12 07:57] VITALS: BP 108/62
--- NOTE | 2019-12-12 12:00 | NUR ---
C/O NAUSEA AND STARTED VOMITTING, MD ORDERED PO ZOFRAN BUT PT CONTINUED TO VOMIT, HAD NO IV SITE SO MD CONSENTED TO PLACE CATHETER, ANITEMETIC IV GIVEN AND CONDITION RESOLVED, IVF INFUSING, WILL CONTINUE TO MONITOR.
[2019-12-12 13:56] VITALS: BP 105/66
--- NOTE | 2019-12-12 16:11 | NUR ---
DR MON CONSULTED, ORDERED PROCEDURE, PT HAD ORAL CONTRAST WHICH SHE JUST COMPLETED, X-RAY DEPT, NOTIFIED, WILL CONTINUE TO MONITOR.
--- NOTE | 2019-12-12 17:47 | NUR ---
TRANSPORTED VIA W/C OFF UNIT FOR CT AABD & PELVIS, RETURNED TO UNIT AND SETTLED IN BED.
[2019-12-12 20:00] VITALS: BP 107/63
--- NOTE | 2019-12-12 23:50 | NUR ---
PATIENT RESTING, NO S/S RESP DISTESS, PATIENT ON O2 VIA NC AND NEB TX, PATIENT S/S PAIN, IVF INFUSING WITHOUT COMPLICATION, WILL CONTINUE TO MONITOR PATIENT HOURLY ROUNDING, CALL LIGHT WITHIN REACH
[2019-12-13 04:00] VITALS: BP 110/71
--- NOTE | 2019-12-13 05:04 | NUR ---
PATIENT RESTING, PATIENT ABLE TO MAKE NEEDS KNOWN, NO S/S PAIN, NO S/S RESP DISTRESS, PATIENT ON O2 VIA NC AND NEB TX, WILL CONTINUE TO MONITOR PATIENT HOURLY ROUNDING, CALL LIGHT WITHIN REACH
[2019-12-13 07:45] VITALS: BP 110/70
--- NOTE | 2019-12-13 07:45 | NUR ---
PT SITTING UP IN BED, A&ox4, able to make needs known. PT DENIES CP, BECOME SOB QUICKLY WITH TALKNIG OR EXERTION. SA02@100% ON 2LPM VIA NC. AFEBRILE. PT GIVEN PRN MEDICATION FOR N/V PER REQUEST PRIOR TO BREAKFAST. 22G TO RFA INFUSING NS ORDERED, NO S/S OF INFILTRATION OR REDNESS NOTED AT SITE AT THIS TIME. CALL LIGHT IN REACH. WILL MONITOR.
--- NOTE | 2019-12-13 08:40 | NUR ---
PT MEDICATED ORDERED PER REQUEST FOR MILD ANXIETY. PT TOLERATED WELL ,CALL LIGHT IN REACH . WILL MONITOR.
--- NOTE | 2019-12-13 11:07 | NUR ---
RT AT BEDSIDE FOR TX.
--- NOTE | 2019-12-13 13:16 | NUR ---
PT RESTING IN BED, WATCHING PERSONAL TABLET, NO DISTRESS NOTED AT THIS TIME. CALL LIGHT IN REACH. WILL MONITOR.
[2019-12-13 15:30] VITALS: BP 153/70
--- NOTE | 2019-12-13 15:32 | NUR ---
PT AMBULATING HALLWAY WITH O2 AND WALKER. SLOW STEADY GAIT NOTED. PT TOLERATED WELL.
--- NOTE | 2019-12-13 15:42 | NUR ---
DR. MARTÍNEZ AND DREW HAIDER AT BEDSIDE FOR ASSESSMENT AND TO DISCUSS PLAN OF CARE, NEW ORDERS RECIEVED.
[2019-12-13] MEDS ORDERED: PROTONIX40 M2 PO (17:44)
[2019-12-13] MEDS ORDERED: PHENERGAN25 MG/TAB PO (17:44)
--- NOTE | 2019-12-13 17:45 | NUR ---
IV site discontinued, cath intact. No edema , no redness, voices no discomfort.
--- NOTE | 2019-12-13 18:12 | NUR ---
Discharge instructions given. Patient verbalizes understanding of same. Discharged in stable condition via Wheelchair to Home with family. All belongings sent with pt.
[2020-04-02] MEDS ORDERED: PROTONIX20 M1 PO (13:07)
== END 2019-12-13 18:12 | disposition home or self-care (01) | DRG 394 ==
LOC: ED 11:10 → MS2 14:05 → ED 14:05 → ED-I 14:08 → MS2 12-11 12:59
PROVIDERS: Nurse Practitioner Family; ADMIT Internal Medicine; ATTEND Internal Medicine
DX: K52.1 Toxic gastroenteritis and colitis (principal); J96.12 Chronic respiratory failure with hypercapnia; J96.11 Chronic respiratory failure with hypoxia; K52.9 Noninfective gastroenteritis and colitis, unspecified; T36.8X5A Adverse effect of other systemic antibiotics, initial encounter; E87.6 Hypokalemia; I10 Essential (primary) hypertension; J44.9 Chronic obstructive pulmonary disease, unspecified; G40.909 Epilepsy, unspecified, not intractable, without status epilepticus; G25.0 Essential tremor; G89.4 Chronic pain syndrome; F41.0 Panic disorder [episodic paroxysmal anxiety]; F32.9 Major depressive disorder, single episode, unspecified; Z87.01 Personal history of pneumonia (recurrent); Z87.891 Personal history of nicotine dependence; Z87.11 Personal history of peptic ulcer disease
CPT/HCPCS: J1650; Q9967; S0164

== ENCOUNTER 2020-03-16 01:14 | Inpatient (IN) | payer OTHER, MEDICAID ==
[~2020-03-16] VITALS: Ht 160 cm; Wt 55.0 kg
--- NOTE | 2020-03-16 01:14 | NUR ---
PT ARRIVED VIA DCFR...REPORTLY CALLED EMS FOR FEVER OF 102 AND BODY ACHES. SHORTNESS OF BREATH. PT ON HOME O2 AND WAS CONTINUED ON SUCH UPON ARRIVAL. PT VERY ANGRY. NOT ANSWERING QUESTIONS. PT THEN C/O NAUEA AND STARTED TO BELCH AND BRING UP SMALL AMT OF DUPONT FLUID. ATTEMPTED TO FINISH TRIAGE, BUT PT REFUSED TO COOPERATE.
--- NOTE | 2020-03-16 01:15 | NUR ---
PT PLACED IN COVID 19 -AIRBORNE ISOLATION DO TO FEVER/SOB/HX OF COPD. PT STATES HER MOTHER FROM PNEUMONIA LAST WEEK...DENIES MOTHER HAVING COVID.
--- NOTE | 2020-03-16 01:56 | NUR ---
PT TOLD DR SHE WOULD COOPERATE. IV STARTED ON RIGHT AC/LABS DRAWN/BC DRAWN. SWABS FOR FLU/STREP/COVID OBTAINED.
--- NOTE | 2020-03-16 02:00 | NUR ---
PHENERGAN AND OFIMIR GIVEN.
--- NOTE | 2020-03-16 02:15 | NUR ---
NS STARTED. PT NO LONGER VOMITING.
[2020-03-16 02:22] LABS: HEMATOCRIT 39.3 % (37.0-47.0); HEMOGLOBIN 12.9 g/dl (12.0-16.0); IMMATURE GRANULOCYTES 0.4 % (0.0-5.0); MEAN CELL VOLUME 88.1 fL CALC (80.0-100.0); MEAN CORPUSCULAR HGB 28.9 pG CALC (26.0-32.0); MEAN CORPUSCULAR HGB CONC 32.8 g/dL CAL (32.0-36.0); NEUT# 12.04 thou/uL (2.00-7.15); RED BLOOD COUNT 4.46 mill/uL (4.20-5.60); RED CELL DISTRI WIDTH 13.3 % (11.5-15.5)
--- NOTE | 2020-03-16 02:34 | NUR ---
XRAY AT BEDSIDE
[2020-03-16 02:36] LABS: ALBUMIN 4.4 g/dL (3.2-5.0); ALKALINE PHOSPHATASE 62 u/l (38-126); AMYLASE 75 u/l (30-110); ANION GAP 12 (6-22 (CALC)); BILIRUBIN, TOTAL 0.3 mg/dL (0.0-1.4); BUN 9 mg/dL (8-23); BUN/CREATININE RATIO 19 (12-20 (CALC)); CARBON DIOXIDE 32 mmol/l (22-30); CHLORIDE 98 mmol/l (95-108); CREATININE 0.5 mg/dL (0.5-1.0); GFR > 60 ML/MIN (>=60 (CALC)); GFR FOR AFR.AMER. > 60 ML/MIN (>=60 (CALC)); LIPASE 87 u/l (23-300); POTASSIUM 4.1 mmol/l (3.5-5.1); SGOT/AST 29 u/l (9-36); SODIUM 138 mmol/l (137-146); TOTAL PROTEIN 7.1 g/dL (6.3-8.2)
--- NOTE | 2020-03-16 03:00 | NUR ---
SECOND SET OF BLOOD CULTURES OBTAINED
--- NOTE | 2020-03-16 03:12 | NUR ---
PT UP TO BSC TO VOID. URINE SENT TO LAB
--- NOTE | 2020-03-16 03:30 | NUR ---
PT STATES SHE NEEDS A BREATHING TREATMENT. SAT AT 100% ON NC. NO DIFFICULTY NOTED. VSS. LUNGS CLEAR...BSC BUT DIM AT BASES. NOTIFIED
[2020-03-16 03:31] LABS: URINE BILIRUBIN - DIPSTICK NEGATIVE (NEGATIVE); URINE BLOOD DIPSTICK TRACE-INTACT (NEGATIVE); URINE COLOR YELLOW; URINE GLUCOSE - DIPSTICK NEGATIVE (NEGATIVE); URINE KETONE NEGATIVE (NEGATIVE); URINE LEUK ESTERASE NEGATIVE (NEGATIVE); URINE NITRITE - DIPSTICK NEGATIVE (Negative); URINE PROTEIN - DIPSTICK NEGATIVE (NEG-TRACE); URINE SPECIFIC GRAVITY 1.015; URINE UROBILINOGEN - DIPSTICK 0.2 E.U./dL (0.2)
--- NOTE | 2020-03-16 03:39 | NUR ---
AT BEDSIDE. PT RESTING
--- NOTE | 2020-03-16 04:40 | NUR ---
REPORT TO NURSE MASON, MED-SURG.
--- NOTE | 2020-03-16 04:55 | NUR ---
TO FLOOR VIA STRETCHER WITH POCKET MONITOR. O2 @ 2 LPM NC. FACE MASK. TRANSFERRED TO BEDS. NAD.
[2020-03-16 05:00] VITALS: BP 100/50
--- NOTE | 2020-03-16 05:00 | NUR ---
PT ARRIVED TO THE FLOOR VIA STRETCHER, PT ALERT AND ORIENTED. PT TRANSFERED FROM STRETCHER TO BED. PRESPIRATIONS SHALLOW ON O2 @ 2L VIA NC. ASSESSMENT COMPLETED AND VS OBTAINED. PEDAL PULSES STONG. PT REPORTS PAIN OF A 10/10 IN HER BACK STATING "IT FEELS LIKE A MUSCLE SPASM". MD TO BE NOTIFIED. TELE IN PLACE. WILL CONTINUE TO MONITOR.
--- NOTE | 2020-03-16 07:15 | NUR ---
REPORT RECEIVED FROM KIMBERLEE CUEVAS
--- NOTE | 2020-03-16 08:00 | NUR ---
PT RESTING IN SEMI FOWLERS POSITION,A&O X3;VS OBTAINED AND ASSESSMENT COMPLETED;PT DENIES ANY CURRENT PAIN OR DISCOMFORTS,PAIN SCALE AND REPORTING EDUCATED;RESPIRATIONS SHALLOW ON O2 @ 2L VIA NC,DIMINISHED LUNG SOUNDS NOTED;NON-PRODUCTIVE COUGH;ABDOMEN SOFT ON PALPATION AND ACTIVE IN ALL 4 QUADRANTS;WEAK PEDAL PULSES;SKIN INTACT;TELE MONITORING IN PLACE;#20G TO RAC INFUSING NS @ 125ML/HR,SITE APPEARS HEALTHY;PT REMAINS IN ISOLATION AT THIS TIME,AWAITING PENDING COVID19 RESULTS;PT ENCOURAGED TO CALL FOR ASSISTANCE IF NEEDED;FALL PRECAUTIONS IN PLACE WITH CALL LIGHT IN REACH;WILL CONTINUE TO MONITOR
[2020-03-16 08:01] VITALS: BP 97/51
--- NOTE | 2020-03-16 08:10 | NUR ---
PT INSTRUCTED TO HAVE HOME MEDICATION LAMICTAL BROUGHT IN BY FAMILY,PT VERBALIZES UNDERSTANDING.
[2020-03-16 11:00] VITALS: BP 104/46; BP 146/68
--- NOTE | 2020-03-16 12:00 | NUR ---
PT RESTING IN SEMI FOWLERS POSITION;RESPIRATIONS REMAIN SHALLOW ON O2 @ 2L VIA NC;PT DENIES ANY CURRENT PAIN OR NEEDS;TELE MONITORING IN PLACE;IV FLUIDS INFUSING WITH EASE PER ORDER;ASSESSMENT REMAINS UNCHANGED AT THIS TIME;PT ENCOURAGED TO CALL FOR ASSISTANCE IF NEEDED;CALL LIGHT IN REACH;WILL CONTINUE TO MONITOR
[2020-03-16] MEDS ORDERED: PAROXETINE20 MG PO (12:10)
[2020-03-16] MEDS ORDERED: MYSOLINE50 M2 PO (12:11)
[2020-03-16] MEDS ORDERED: DILTIAZEM HCL240 M2 PO (12:13)
[2020-03-16] MEDS ORDERED: BUSPAR10 M1 PO (12:22)
[2020-03-16] MEDS ORDERED: LEVALBUTER1.25 MG/1 IN (12:50)
[2020-03-16] MEDS ORDERED: THEOPHYLLINE S200 MG PO (12:56)
[2020-03-16 15:30] VITALS: BP 103/50
--- NOTE | 2020-03-16 15:30 | NUR ---
PT RESTING IN SEMI FOWLERS POSITION;RESPIRATIONS EVEN AND UNLABORED,SHALLOW ON O2 @ 2L VIA NC;PT REPORTS PAIN HAS DECREASED SINCE PAIN MEDICATION ADMINISTRATION;TELE MONITORING IN PLACE;IV FLUIDS INFUSING WITH EASE;PT DENIES ANY ADDITIONAL NEEDS AT THIS TIME;ENCOURAGED TO CALL FOR ASSISTANCE IF NEEDED;FALL PRECAUTIONS IN PLACE WITH CALL LIGHT IN REACH;WILL CONTINUE TO MONITOR
--- NOTE | 2020-03-16 19:26 | NUR ---
ASSESSMENT COMPLETED. NO DISTRESS NOTED; O2 INFUSING PER NC PER ORDER. PT. REPORTING BACK PAIN/SPASM AND MEDICATED WITH ORDERED PRN FLEXERIL; WILL REASSESS. UPDATED ON TIME THAT PRN PERCOCET IS AVAILABLE AND VERBALIZES UNDERSTANDING. IV SITE PATENT AND ORDERED IVF INFUSING ORDERED IVF WELL. ENCOURAGED TO CALL FOR ANY NEEDS. CALL LIGHT IS IN REACH.
--- NOTE | 2020-03-16 20:42 | NUR ---
PT. BACK TO BED OFF BSC AND ER REPORTED HR IS ELEVATED; HR DOES ELEVATE WITH EXERTION, RELAXATION TECHINIQUES IMPLEMENTED. OFFERED TO PLACE PURWIC FOR PT SO PT. DOES NOT EXERT HERSELF AND PT. DECLINES ALSO OFFERED BEDPAN ON NEXT VOID AND DECLINES THIS WELL. PT. C/O BACK PAIN AND MEDICATED WITH ORDERED PRN PERCOCET; WILL REASSESS.
[2020-03-16 20:43] VITALS: BP 113/62
--- NOTE | 2020-03-16 22:10 | NUR ---
PT. REQUESTS PRN XANAX TO ASSIST HER TO RELAX, MEDICATED PER EMAR; DENIES FURTHER NEEDS.
[2020-03-17] VITALS (9 sets, daily range): BP systolic 95–140; BP diastolic 56–65
--- NOTE | 2020-03-17 00:15 | NUR ---
PRN INHALOR PROVIDED FOR SOB. TROPONIN LAB OBTAINED. DENIES FURTHER NEEDS. CALL LIGHT IS IN REACH.
--- NOTE | 2020-03-17 04:21 | NUR ---
PT. REPORTS SOB AND PRN INHALOR GIVEN ALONG WITH PRN PERCOCET FOR REPORTS OF BACK PAIN; WILL REASSESS. AM LABS DRAWN. ENCOURAGED TO CALL FOR ANY NEEDS. CALL LIGHT IS IN REACH. WILL CONTINUE TO MONITOR.
[2020-03-17 05:11] LABS: HEMATOCRIT 33.8 % (37.0-47.0); MEAN CELL VOLUME 89.9 fL CALC (80.0-100.0); MEAN CORPUSCULAR HGB 27.9 pG CALC (26.0-32.0); MEAN CORPUSCULAR HGB CONC 31.1 g/dL CAL (32.0-36.0); RED BLOOD COUNT 3.76 mill/uL (4.20-5.60); RED CELL DISTRI WIDTH 13.5 % (11.5-15.5)
[2020-03-17 05:16] LABS: HEMOGLOBIN 10.5 g/dl (12.0-16.0)
[2020-03-17 05:24] LABS: ALKALINE PHOSPHATASE 61 u/l (38-126); BUN 7 mg/dL (8-23); BUN/CREATININE RATIO 22 (12-20 (CALC)); CHLORIDE 103 mmol/l (95-108); CREATININE 0.3 mg/dL (0.5-1.0); GFR > 60 ML/MIN (>=60 (CALC)); GFR FOR AFR.AMER. > 60 ML/MIN (>=60 (CALC)); POTASSIUM 4.9 mmol/l (3.5-5.1); SGOT/AST 49 u/l (9-36); TOTAL PROTEIN 6.1 g/dL (6.3-8.2)
[2020-03-17 05:40] LABS: ALBUMIN 3.4 g/dL (3.2-5.0); ANION GAP 10 (6-22 (CALC)); BILIRUBIN, TOTAL 1.2 mg/dL (0.0-1.4); CARBON DIOXIDE 22 mmol/l (22-30); SODIUM 130 mmol/l (137-146)
--- NOTE | 2020-03-17 06:06 | NUR ---
PT. MEDICATED WITH ORDERED PRN XANAX PER REQUEST AND ORDER. FRESH WATER GIVEN. ENCOURAGED TO CALL FOR ANY NEEDS. VOICES NO CONCERNS.
--- NOTE | 2020-03-17 07:50 | NUR ---
RECIEVED REPORT FROM IKMBERLEE HARMON. PT RESTING IN SEMI FOWLERS POSTION. INTRODUCED SELF TO PT. OBTAINED VITAL SIGNS. BP 95/58, HR 92, TEMP 98.3. HEART SOUNDS REGULAR AND ACTIVE BOWEL SOUNDS IN ALL QUADRANTS. BREATH SOUNDS CLEAR. STRONG RADIAL AND PEDAL PULSES. CAPILLARY REFILL NORMAL. NO EDEMA IN LOWER EXTREMIES, ZAMZAM HOSE APPLIED. IV SITE IS PATENT AND APPEARS HEALTHY. NS RUNNING AT 50 ML ORDERED, WITH NO COMPLICATIONS. PT DENIES ANY PAIN OR DISCOMFORTS AT THIS TIME, WILL CONTINUE TO MONITOR.
--- NOTE | 2020-03-17 12:34 | NUR ---
PT RESTING IN BED WATCHING TV. VITALS OBTAINED. BP 187/61, HR 113, O2 100%, TEMP 99.7. BREATHING IS DIMISHED. ZOSYEN STARTED AT THIS TIME. IV SITE APPEARS HEALTH AND PATENT. PT REQUESTED BREATHING TREATMENT AT THIS TIME, UNABLE TO DUE PT CURRENTLY BEING TESTED FOR COVID19, ADVAIR AND SPIRIVA TO BE PROVIDED ORDERED. ENCOURAGED PT TO CALL FAMILY REMINDING THEM ABOUT BRINGING HER LAMICTAL FROM HOME, PT AGREEED TO CALLING.PT DENIES ANY PAIN OR DISCOMFORTS AT THIS TIME.WILL CONTINUE TO MONITOR.
--- NOTE | 2020-03-17 12:36 | NUR ---
AT BEDSIDE DISCUSSING POC.
--- NOTE | 2020-03-17 15:56 | NUR ---
PT LAYING IN SEMI FOWLERS POSTION WATCHING TV. VITALS OBTAINED. BP 140/58, HR 124, TEMP 99.9, O2 97%. PT COMPLAINED OF A 4/10 ABDOMINAL PAIN. PERCOCET GIVEN AT THIS TIME TO HELP WITH PAIN AND FEVER. BREATHING IN SHALLOW. IV SITE APPEARS HEALTHY AND PATENT. NS RUNNING AT 50 ORDERED. PT INFORMED WRITTER ABOUT HOME MED CALLED [facility]LENA THAT SHE IS SUPPOSE TO BE TAKING, PT FAMILY WILL HAVE TO BRING IN.PT HAS NO OTHER DISCOMFORTS OR NEEDS AT THIS TIME. ALL SAFTEY PERCAUTIONS IN PLACE. ENCOUAGED PT TO CALL FOR ASSISTANCE. WILL CONTINUE TO MONITOR.
--- NOTE | 2020-03-17 18:23 | NUR ---
PT RESTING IN SEMI FOWLERS POSTION WATCHING TV. PT REQUESTED FLEXERIL. FLEXERIL PRESCRIBED 10MG PO PRN, GIVEN AT THIS TIME. BREATHING IS SHALLOW.AT THIS TIME ZOSYEN RUNNING AT 200 ML ORDERED . DANIEL SITE IS HEALTHY AND PATENT. PT EATEN ABOUT 25% OF DINNER.PT DENIES ANY PAIN OR DISCOMFORTS AT THIS . ALL SAFTEY PERCAUTIONS IN PLACE.ENCOURAGED TO CALL FOR ASSISTANCE. WILL CONTINUE TO MONITOR
--- NOTE | 2020-03-17 19:15 | NUR ---
REPORT FROM DEBI GARY. PT SITTING UP IN BED. NO APPARENT RESPIRATORY DISTRESS NOTED. ALERT AND ORIENTED. AFEBRILE. O2 VIA NC @ 2L/M. IV SITE APPEARS HEALTHY. PT DENIES ANY PAIN OR DISCOMFORT AT THIS TIME. DISCUSSED POC. PT VERBALIZED UNDERSTANDING. REMAINS IN ISOLATION PENDING COVID RESULTS. CALL LIGHT WITHIN REACH. WILL CONTINUE TO MONITOR.
--- NOTE | 2020-03-17 21:01 | NUR ---
PT MEDICATED ORDERED. PT REQUESTING SMALL WHITE PILL FOR SHAKES, PT STATES SHE CANNOT REMEMBER NAME OF MEDICATION AND FAILED TO MENTION IT WHEN MED REC WAS COMPLETED. SAMPLE SUPERVISOR WENT OVER MAR AND PRN MEDICATIONS ORDERED. PT MEDICATED WITH XANAX AT THIS TIME. PT DENIES ANY OTHER WANTS OR NEEDS. CALL LIGHT WITHIN REACH. WILL CONTINUE TO MONITOR.
--- NOTE | 2020-03-18 00:28 | NUR ---
PT RESTING IN BED WITH EYES CLOSED. NO APPARENT RESPIRATORY DISTRESS NOTED. O2 @2L/M VIA NC. CALL LIGHT WITHIN REACH. WILL CONTINUE TO MONITOR.
--- NOTE | 2020-03-18 04:25 | NUR ---
PT RESTING IN BED WITH EYES CLOSED. NO APPARENT DISTRESS NOTED. CALL LIGHT WITHIN REACH. WILL CONTINUE TO MONITOR.
[2020-03-18 05:28] VITALS: BP 117/55
[2020-03-18 07:45] VITALS: BP 125/57
--- NOTE | 2020-03-18 07:45 | NUR ---
RECIEVED REPORT FROM ABDIRAHMAN CORTES. PT SLEEPING IN SEMI FOWLERS POSTION. VITALS OBTAINED, BP 125/57,HR 75, TEMP 97.5, O2 96%. BREATHING IS EVEN AND UNLABORED. NS RUNNING IN RAC AT 50 ML ORDERED. NO SIGNS OF ANY PAIN OR DISCOMFORTS AT THIS TIME. ALL SAFTEY PERCAUTIONS IN PLACE WITH CALL LIGHT IN REACH. WILL CONTINUE TO MONITOR.
--- NOTE | 2020-03-18 08:00 | NUR ---
ASSESSMENT COMPLETE. PT A/O X3 AND AMBULATORY TO [facility] [place]. PT ON 2L NASAL CANUAL WITH O2 AT 96%. HEART RHYTHM NORMAL, LUNG SOUNDS DIMINISHED, BOWEL SOUNDS ARE ACTIVE IN ALL QUADRANTS.RADIAL AND PEDAL PULSES STRONG. CAPILLARY REFILL IS NORMAL.NO EDEMA. CONTINUES TO WEAR ZAMZAM HOSE. IV SITE PATENT AND HEALTH, NS RUNNING AT 50 ML IN THE RAC. SKIN IS COOL/ DRY. PT LAST BM WAS 03/15/20, SUGGESTED TO DO INTERVENTIONS TO HELP HER GO, PT DENIED SUGGESTION BECAUSE SHE REPORTS NOT EATING MUCH. SCHEDULED MEDS GIVEN. PT TOLERATED WELL. PT DENIED ANY PAIN OR DISCOMFORTS AT THIS TIME. ALL SAFTEY PERCAUTIONS IN PLACE WITH THE CALL LIGH IN REACH. WILL CONTINUE TO MONITOR.
--- NOTE | 2020-03-18 10:01 | NUR ---
Yokasta Mathews is a 64 y/o F who presents with pneumonia. Vancomycin ordered for pharmacy to dose. Wt = 55 kg SCr = 0.3 mg/dl CrCl = 84.84 ml/min Sputum culture shows S aureus. Blood cultures are pending. Initiate vancomycin 750mg IV q12h @ 1000 and 2200. Draw vanco trough 30 min prior to 4th dose on 03/19 @ 2130. Goal trough between 15-20 mcg/ml. Pharmacy will continue to follow and advise.
[2020-03-18 11:48] VITALS: BP 136/59
--- NOTE | 2020-03-18 12:00 | NUR ---
PT RESTIN IN BED WATCHING TV. NS RUNNING AT 50 ML ORDERED IN RAC, SITE APPEARS HEALTHY AND PATENT. PT ON OXYGEN 2L NASAL CANNULA. PT DENIES ANY PAIN OR DISCOMFORTS AT THIS TIME. ALL SAFTEY PERCATIONS ARE IN PLACE WITH CALL LIGHT IN REACH. WILL CONTINUE TO MONITOR
[2020-03-18 15:26] VITALS: BP 126/58
--- NOTE | 2020-03-18 16:00 | NUR ---
PT RESTING IN SEMI FOWLERS POSTION WATCHING TV. PT IV PATENT AND APPEARS HEALTHY. ON 2L OF OXYGEN. TELE IN PLACE. PT DENIES ANY PAIN OR DISCOMFORTS AT THIS TIME. ALL SAFTEY PRECAUTIONS IN PLACE AT THIS TIME WITH CALL LIGHT IN REACH, WILL CONTINUE TO MONITOR.
--- NOTE | 2020-03-18 18:28 | NUR ---
PT RESTING IN SEMI FOWLERS POSITION,WATCHING TV. PRUNE JUICE GIVEN TO PT, LAST BM WAS 03/15/20. IV RUNNING AT 50 ML ORDERED, SITE APPEARS PATENT AND HEALTHY. PT BREATHING IS UNLABORED ON 2L OF OXYGEN. PT DENIES ANY PAIN OR DISCOMFORTS AT THIS TIME. ALL SAFTEY PRECAUTIONS IN PLACE AT THIS WITH CALL LIGHT IN REACH, ENCORAGED PT TO CALL FOR ASSISTANCE. WILL CONTINUE TO MONITOR.
[2020-03-18 20:00] VITALS: BP 116/69
--- NOTE | 2020-03-18 21:30 | NUR ---
PT RESTING IN BED, NO SIGNS OF DISTRESS NOTED, RESP EVEN AND UNLABORED. PT ALERT AND ORIENTED X3, 02 2L NC, DISCUSSED POC, PT MEDICATED PER MAR, ASKING FOR HER MD GLORY NOTIFIED AND MEDICATION TO BE PROFILED, ASSESSMENT COMPLETED, CALL LIGHT IN REACH,CONTINUE TO MONITOR.
[2020-03-18 23:55] VITALS: BP 131/67
--- NOTE | 2020-03-19 | NUR ---
PT RESTING IN BED WATCHING TV, DISCUSSED IV ANTIBIOTICS PT AGREES, VOICES NO NEEDS OR COMPLAINTS AT THIS TIME, CALL LIGHT IN REACH,CONTINUE TO MONITOR.
[2020-03-19 04:20] VITALS: BP 108/51
--- NOTE | 2020-03-19 05:20 | NUR ---
PT RESTING IN BED, LABS DRAWN FROM IV SITE, PT TOLERATED WELL. IV ANTIBIOTIC INITIATED. CALL LIGHT IN REACH,CONTINUE TO MONITOR.
[2020-03-19 05:45] LABS: HEMATOCRIT 30.7 % (37.0-47.0); HEMOGLOBIN 9.8 g/dl (12.0-16.0); IMMATURE GRANULOCYTES 1.1 % (0.0-5.0); MEAN CELL VOLUME 88.2 fL CALC (80.0-100.0); MEAN CORPUSCULAR HGB 28.2 pG CALC (26.0-32.0); MEAN CORPUSCULAR HGB CONC 31.9 g/dL CAL (32.0-36.0); NEUT# 12.17 thou/uL (2.00-7.15); RED BLOOD COUNT 3.48 mill/uL (4.20-5.60); RED CELL DISTRI WIDTH 13.2 % (11.5-15.5)
[2020-03-19 06:16] LABS: ALBUMIN 3.1 g/dL (3.2-5.0); ALKALINE PHOSPHATASE 62 u/l (38-126); BUN 9 mg/dL (8-23); BUN/CREATININE RATIO 31 (12-20 (CALC)); CHLORIDE 105 mmol/l (95-108); CREATININE 0.3 mg/dL (0.5-1.0); GFR > 60 ML/MIN (>=60 (CALC)); GFR FOR AFR.AMER. > 60 ML/MIN (>=60 (CALC)); SGOT/AST 16 u/l (9-36); TOTAL PROTEIN 5.4 g/dL (6.3-8.2)
[2020-03-19 06:28] LABS: ANION GAP 6 (6-22 (CALC)); BILIRUBIN, TOTAL 0.2 mg/dL (0.0-1.4); CARBON DIOXIDE 29 mmol/l (22-30); SODIUM 137 mmol/l (137-146)
--- NOTE | 2020-03-19 07:00 | NUR ---
REPORT RECEIVED FROM ABDIRAHMAN BUCKNER. PT RESTING IN BED ON RIGHT SIDE; ALERT AND ORIENTED. C/O RIGHT HIP AND LEFT SHOULDER PAIN. RESPIRATIONS EVEN AND SHALLOW; PT REPORTS MILD SOB; ON OXYGEN 2L VIA NC. LUNGS HAVE EXPIRATORY WHEEZING WITH DIMINISHED BASES. PT ON AIRBORNE/CONTACT PRECAUTIONS PENDING COVID TEST. PLAN OF CARE REVIEWED. PT ENCOURAGED TO VERABLIZE CONCERNS. STATES UNDERSTANDING. SAFETY MEASURES IN PLACE. CALL LIGHT WITHIN REACH.
[2020-03-19 08:00] VITALS: BP 118/66
--- NOTE | 2020-03-19 08:30 | NUR ---
PERCOCET GIVEN WITH AM MEDS. TELE ON.
--- NOTE | 2020-03-19 10:46 | NUR ---
COVID SWAB RESULTS ARE NEGATIVE. PT MOVED FROM ROOM 282 TO 273 AND PLACED ON STANDARD PRECAUTIONS.
[2020-03-19 11:15] VITALS: BP 116/68
--- NOTE | 2020-03-19 11:31 | NUR ---
RT AT BEDSIDE FOR BREATHING TREATMENT.
--- NOTE | 2020-03-19 12:53 | NUR ---
IV SITE TO LAC LEAKING WITH SOME REDNESS; SITE D/C'D AND NEW SITE PLACED TO RFA. VANCO INFUSING.
[2020-03-19 15:00] VITALS: BP 110/59
--- NOTE | 2020-03-19 15:54 | NUR ---
OXYCODONE GIVEN WITH GOOD EFFECT. PT RESTING IN BED WITH NO REQUESTS OR CONCERNS. INDEPENDENT TO BSC. CALL LIGHT WITHIN REACH.
--- NOTE | 2020-03-19 18:35 | NUR ---
PT C/O MILD ANXIETY. FLEXERIL GIVEN.
[2020-03-19 19:10] VITALS: BP 121/65
--- NOTE | 2020-03-19 19:15 | NUR ---
RT AT BEDSIDE FOR BREATHING TREATMENT.
--- NOTE | 2020-03-19 19:45 | NUR ---
PT RESTING IN BED, ALERT AND ORIENTED. RESPIRATIONS EVEN AND UNLABORED ON O2 @ 2L VIA NC. LUNGS SOUND DIMINISHED. PEDAL PULSES ARE WEAK. PT DENIES ANY PAIN OR DISCOMFORT AT THIS TIME. SAFETY PRECAUTIONS IN PLACE. WILL CONTINUE TO MONITOR.
[2020-03-19 23:18] VITALS: BP 119/70
--- NOTE | 2020-03-20 01:18 | NUR ---
PT RESTING IN BED. NO S/S OF DISTRESS AT THIS TIME. SAFETY PRECAUTIONS IN PLACE. WILL CONTINUE TO MONITOR.
--- NOTE | 2020-03-20 03:54 | NUR ---
PT RESTING IN BED, NO S/S OF DISTRESS AT THIS TIME. TELE IN PLACE. WILL CONTINUE TO MONITOR.
[2020-03-20 04:00] VITALS: BP 127/74
[2020-03-20 08:00] VITALS: BP 148/80
--- NOTE | 2020-03-20 08:00 | NUR ---
PT RESTING IN BED. PT REPORTS FEELING BETTER TODAY. CONTINUES WITH SOB WITH EXERTION
--- NOTE | 2020-03-20 11:00 | NUR ---
PT OOB TO CHAIR, SOB NOTED. PT C/O ANXIETY AND REQUESTED XANAX. MED GIVEN PER PRN ORDER. PT RESTING IN BED. NO DISTRES AT THIS TIME.
--- NOTE | 2020-03-20 11:14 | NUR ---
RECEIVED MESSAGE THAT PATIENT'S BRENDAN CALLED. SPOKE WITH PATIENT FOR CONSENT TO GIVE PHONE UPDATE. PT STATES, "I'LL CALL HIM MYSELF."
[2020-03-20 11:40] LABS: ANION GAP 11 (6-22 (CALC)); BUN 12 mg/dL (8-23); BUN/CREATININE RATIO 44 (12-20 (CALC)); CARBON DIOXIDE 29 mmol/l (22-30); CHLORIDE 102 mmol/l (95-108); CREATININE 0.3 mg/dL (0.5-1.0); GFR > 60 ML/MIN (>=60 (CALC)); GFR FOR AFR.AMER. > 60 ML/MIN (>=60 (CALC)); POTASSIUM 2.9 mmol/l (3.5-5.1); SODIUM 139 mmol/l (137-146)
[2020-03-20 15:32] VITALS: BP 147/60
--- NOTE | 2020-03-20 16:30 | NUR ---
PT RESTING IN BED. NO DISTRESS. FOOD SENT UP TO FLOOR FOR PATIENT AND DELIVERED.
[2020-03-20 19:13] VITALS: BP 151/74
--- NOTE | 2020-03-20 20:45 | NUR ---
PT RESTING IN BED ALERT AND ORIENTED. RESPIRATIONS SHALLOW ON O2 @ 2L VIA NC. LUNGS SOUND DIMINISHED. PEDAL PULSES WEAK. PT DENIES ANY PAIN OR DISCOMFORT AT THIS TIME. SAFETY PRECAUTIONS IN PLACE. WILL CONTINUE TO MONITOR.
--- NOTE | 2020-03-20 23:48 | NUR ---
PT RESTING IN BED. RESPIRATONS EVEN AND UNLABORED ON O2 @ 2L VIA NC. PT DENIES ANY PAIN OR DISCOMFORT AT THIS TIME. SAFETY PRECAUTIONSIONS IN PLACE. WILL CONTINUE TO MONTIOR.
[2020-03-20 23:53] VITALS: BP 132/76
[2020-03-21 04:33] VITALS: BP 137/81
--- NOTE | 2020-03-21 04:38 | NUR ---
PT RESTING IN BED. RESPIRAT IONS SHALLOW ON O2 @ 2L VIA NC. NO S/S OF DISTRESS AT THIS TIME. SAFETY PRECAUTIONS IN PLACE. WILL CONTINUE TO MONITOR.
[2020-03-21 05:43] LABS: BUN 15 mg/dL (8-23); BUN/CREATININE RATIO 61 (12-20 (CALC)); CARBON DIOXIDE 34 mmol/l (22-30); CHLORIDE 97 mmol/l (95-108); CREATININE 0.3 mg/dL (0.5-1.0); GFR > 60 ML/MIN (>=60 (CALC)); GFR FOR AFR.AMER. > 60 ML/MIN (>=60 (CALC)); SODIUM 136 mmol/l (137-146)
[2020-03-21 05:49] LABS: ANION GAP 9 (6-22 (CALC)); POTASSIUM 3.6 mmol/l (3.5-5.1)
[2020-03-21 07:50] VITALS: BP 139/80
--- NOTE | 2020-03-21 07:50 | NUR ---
ASSESSMENT IS CONPLETED: IV SITE IS FREE FROM REDNESS OR EDEMA. HR IS REG,PULSES ARE STRONG X4, ABD IS SOFT WITH ACTIVE BS. BREATH SOUNDS AR DIMINISHED. TELE MONITOR IN PLACE. CONTINUE TO OBSERVE AND MONITOR.
[2020-03-21 11:33] VITALS: BP 127/78
[2020-03-21] MEDS ORDERED: DOXYCYCL HYC100 MG PO (11:53)
--- NOTE | 2020-03-21 12:00 | NUR ---
PTHAS BEEN RELAXING IN BED WITH NO DISTRESS NOTED. IV SITE IS FREE FROM REDNESS OR EDEMA.
[2020-03-21] MEDS ORDERED: PREDNISONE10 MG PO (12:03)
--- NOTE | 2020-03-21 14:00 | NUR ---
IV SITE DISCONTINEUD CATHETER INTACT. NO REDNESS OR EDEMA. DISCHARGE INSTRUCTIONS GIVEN TO PT AND VERBALZIED UNDERSTANDING., AT 1345 WAS UNSURE ABOUT GOING HOME. THEN THOUGHT ABOUT IT AND CHANGED HER MIND.
--- NOTE | 2020-03-21 14:05 | NUR ---
Discharge instructions given. Patient verbalizes understanding of same. Discharged in stable condition via Wheelchair to Home with family. All belongings sent with pt.
--- NOTE | 2020-03-30 11:43 | NUR ---
Pneumonia discharge call completed. Pt. states she is doing well, but it is a slow process. No fever, chills, undue fatigue. Pt. saw PCP yesterday. No needs or questions. Thankful for call.
== END 2020-03-21 14:00 | disposition home or self-care (01) | DRG 178 ==
LOC: ED 01:14 → ED-I 03:38 → ED 03:54 → MS2 03:55
PROVIDERS: Emergency Medicine; Internal Medicine; Nurse Practitioner Family; ADMIT Internal Medicine; ATTEND Internal Medicine
DX: J15.211 Pneumonia due to Methicillin susceptible Staphylococcus aureus (principal); J44.1 Chronic obstructive pulmonary disease with (acute) exacerbation; J44.0 Chronic obstructive pulmonary disease with (acute) lower respiratory infection; I10 Essential (primary) hypertension; G40.909 Epilepsy, unspecified, not intractable, without status epilepticus; E78.5 Hyperlipidemia, unspecified; G25.0 Essential tremor; E87.6 Hypokalemia; G89.29 Other chronic pain; M54.9 Dorsalgia, unspecified; M25.532 Pain in left wrist; M25.531 Pain in right wrist; M25.562 Pain in left knee; M25.561 Pain in right knee; M25.512 Pain in left shoulder; M25.511 Pain in right shoulder; F32.9 Major depressive disorder, single episode, unspecified; F41.9 Anxiety disorder, unspecified; Z87.891 Personal history of nicotine dependence; Z87.01 Personal history of pneumonia (recurrent); Z99.81 Dependence on supplemental oxygen; Z20.828 Contact with and (suspected) exposure to other viral communicable diseases
CPT/HCPCS: J0131; J3370

== ENCOUNTER 2020-04-02 08:54 | Emergency (ER) | payer OTHER, MEDICAID ==
[~2020-04-02 08:54] MED LIST changes: +DILTIAZEM HCL240 M2 PO; +DOXYCYCL HYC100 MG PO; +LEVALBUTER1.25 MG/1 IN; +MYSOLINE50 M2 PO; +THEOPHYLLINE S200 MG PO
[2020-04-02] MEDS ORDERED: PROTONIX40 M2 PO (09:33)
[2020-04-02 09:43] LABS: MEAN CELL VOLUME 89.6 fL CALC (80.0-100.0); MEAN CORPUSCULAR HGB 28.2 pG CALC (26.0-32.0); MEAN CORPUSCULAR HGB CONC 31.5 g/dL CAL (32.0-36.0); NEUT# 4.84 thou/uL (2.00-7.15); RED BLOOD COUNT 4.25 mill/uL (4.20-5.60); RED CELL DISTRI WIDTH 14.7 % (11.5-15.5)
[2020-04-02 09:56] LABS: ALBUMIN 3.7 g/dL (3.2-5.0); ALKALINE PHOSPHATASE 64 u/l (38-126); ANION GAP 6 (6-22 (CALC)); BUN 9 mg/dL (8-23); BUN/CREATININE RATIO 19 (12-20 (CALC)); CARBON DIOXIDE 32 mmol/l (22-30); CHLORIDE 100 mmol/l (95-108); CREATININE 0.4 mg/dL (0.5-1.0); GFR > 60 ML/MIN (>=60 (CALC)); GFR FOR AFR.AMER. > 60 ML/MIN (>=60 (CALC)); LIPASE 70 u/l (23-300); POTASSIUM 4.1 mmol/l (3.5-5.1); SGOT/AST 21 u/l (9-36); SODIUM 134 mmol/l (137-146); TOTAL PROTEIN 6.3 g/dL (6.3-8.2)
[2020-04-02 09:59] LABS: INTERNATIONAL NORMALIZED RATIO 0.9 RATIO (0.7-1.3); PROTHROMBIN TIME 9.7 SECONDS (9.0-12.5)
[2020-04-02 10:03] LABS: BILIRUBIN, TOTAL 0.5 mg/dL (0.0-1.4)
[2020-04-02 10:16] LABS: HEMATOCRIT 38.1 % (37.0-47.0)
[2020-04-02 12:13] LABS: URINE BILIRUBIN - DIPSTICK NEGATIVE (NEGATIVE); URINE BLOOD DIPSTICK TRACE-INTACT (NEGATIVE); URINE COLOR YELLOW; URINE GLUCOSE - DIPSTICK NEGATIVE (NEGATIVE); URINE KETONE NEGATIVE (NEGATIVE); URINE LEUK ESTERASE NEGATIVE (NEGATIVE); URINE NITRITE - DIPSTICK NEGATIVE (Negative); URINE PROTEIN - DIPSTICK NEGATIVE (NEG-TRACE); URINE SPECIFIC GRAVITY <=1.005; URINE UROBILINOGEN - DIPSTICK 0.2 E.U./dL (0.2)
[2020-04-02 12:56] VITALS: BP 131/60
[2020-04-02] MEDS ORDERED: AMOX/K CLAV875 M1 PO (13:07)
[2020-04-02] MEDS ORDERED: PROTONIX20 M1 PO ×2 (13:07)
[2020-04-02] MEDS ORDERED: ZPAK PO (13:07)
== END 2020-04-02 13:45 | disposition home or self-care (01) | DRG 391 ==
LOC: ED 08:54
PROVIDERS: Family Medicine
DX: R10.13 Epigastric pain (principal); J18.9 Pneumonia, unspecified organism; I10 Essential (primary) hypertension; J44.9 Chronic obstructive pulmonary disease, unspecified; G40.909 Epilepsy, unspecified, not intractable, without status epilepticus; Z87.11 Personal history of peptic ulcer disease
CPT/HCPCS: Q9967

== ENCOUNTER 2020-08-20 11:44 | Observation (INO) | payer OTHER, MEDICAID ==
[~2020-08-20] VITALS: Ht 157.5 cm; Wt 55.3 kg
[~2020-08-20 11:44] MED LIST changes: +AMOX/K CLAV875 M1 PO; +PROTONIX20 M1 PO; +ZPAK PO
--- NOTE | 2020-08-20 11:47 | NUR ---
PT IMMEDIATELY TO RM 14 VIA W/C FOR B/S TRIAGE.
--- NOTE | 2020-08-20 12:15 | NUR ---
PT GIVES VERBAL CONSENT FOR RECTAL EXAM AND HEMOCULT SWAB.
--- NOTE | 2020-08-20 12:46 | NUR ---
PT STATES WORSENING SOB LAST FEW DAYS WITH BLOODY SPUTUM THIS AM AND BLACK STOOLS RECENTLY WITH HX OF GI BLEED
[2020-08-20 12:47] LABS: HEMATOCRIT 42.8 % (37.0-47.0); HEMOGLOBIN 13.1 g/dl (12.0-16.0); IMMATURE GRANULOCYTES 1.1 % (0.0-5.0); MEAN CELL VOLUME 89.4 fL CALC (80.0-100.0); MEAN CORPUSCULAR HGB 27.3 pG CALC (26.0-32.0); MEAN CORPUSCULAR HGB CONC 30.6 g/dL CAL (32.0-36.0); NEUT# 7.6 thou/uL (2.00-7.15); RED BLOOD COUNT 4.79 mill/uL (4.20-5.60); RED CELL DISTRI WIDTH 13.2 % (11.5-15.5)
[2020-08-20 13:11] LABS: ALBUMIN 4.1 g/dL (3.2-5.0); ALKALINE PHOSPHATASE 85 u/l (38-126); ANION GAP 8 (6-22 (CALC)); BILIRUBIN, TOTAL 0.4 mg/dL (0.0-1.4); BUN 10 mg/dL (8-23); BUN/CREATININE RATIO 21 (12-20 (CALC)); CARBON DIOXIDE 34 mmol/l (22-30); CHLORIDE 99 mmol/l (95-108); CREATININE 0.5 mg/dL (0.5-1.0); GFR > 60 ML/MIN (>=60 (CALC)); GFR FOR AFR.AMER. > 60 ML/MIN (>=60 (CALC)); LIPASE 69 u/l (23-300); POTASSIUM 3.7 mmol/l (3.5-5.1); SGOT/AST 24 u/l (9-36); SODIUM 137 mmol/l (137-146); TOTAL PROTEIN 7.1 g/dL (6.3-8.2)
--- NOTE | 2020-08-20 13:51 | NUR ---
MEDICATED FRO COMPLAINTS OF ANXIETY ORDERED
--- NOTE | 2020-08-20 14:12 | NUR ---
PT STATES ANXIETY MUCH IMPROVED
[2020-08-20 14:21] LABS: URINE BILIRUBIN - DIPSTICK NEGATIVE (NEGATIVE); URINE BLOOD DIPSTICK TRACE-INTACT (NEGATIVE); URINE COLOR YELLOW; URINE GLUCOSE - DIPSTICK NEGATIVE (NEGATIVE); URINE KETONE NEGATIVE (NEGATIVE); URINE LEUK ESTERASE NEGATIVE (NEGATIVE); URINE NITRITE - DIPSTICK NEGATIVE (Negative); URINE PH 7.5 (4.5-8.0); URINE PROTEIN - DIPSTICK NEGATIVE (NEG-TRACE); URINE UROBILINOGEN - DIPSTICK 0.2 E.U./dL (0.2)
--- NOTE | 2020-08-20 15:05 | NUR ---
RT AT BEDSIDE FOR NEB TREATMENT
--- NOTE | 2020-08-20 15:53 | NUR ---
UP TO BSC WITH SBA. CALL MURILLO WITHIN REACH
--- NOTE | 2020-08-20 17:00 | NUR ---
PT AWARE OFPLANNEDADMISSION ANDDELAY IN BED PLACEMENT RELATED TO AWAITING D/C'S, NO NEW COMPLAINTS OFFERED
--- NOTE | 2020-08-20 18:10 | NUR ---
PT RESTING, VOIDSON BSC W/O INCIDENT, NO NEW COMPLAINTS OFFERED
--- NOTE | 2020-08-20 19:29 | NUR ---
REPORT CALLED TO VIDA
--- NOTE | 2020-08-20 20:03 | NUR ---
PT. TAKEN TO [facility] VIA STRETCHER, NO C/O AT THIS TIME.
--- NOTE | 2020-08-20 20:05 | NUR ---
PT ARRIVES TO UNIT AT 2004, ADMITTED INTO ROOM 262.
[2020-08-20 20:20] VITALS: BP 121/75
--- NOTE | 2020-08-20 21:25 | NUR ---
ADMISSION AND PHYSICAL ASSESMENT COMPLETE. PT CURRENTLY DENIES PAIN OR DISCOMFORT. SCHEDULED MEDICATIONS AND REQUESTED PRN MEDICATIONS ADMINISTERED, SEE E-MAR. PT DENIES ANY NEEDS AT THIS TIME. PLAN OF CARE REVIEWED, PT DENIES QUESTIONS, VERBALIZES UNDERSTANDING. ITEMS WITHIN REACH, BED LOCKED IN LOW POSITION W/ BEDRAILS UP X2. CALL MURILLO WITHIN REACH, AGREES TO CALL PRN.
[2020-08-21] VITALS: BP 105/68
--- NOTE | 2020-08-21 | NUR ---
PT HAD A COMPLAINT TO THIS NURSE ABOUT A BP CUFF BEING SOILED, PT HAD NO FURTHER COMPLAINTS AFTER IT WAS REMOVED AND THROWN AWAY. NO DISTRESS NOTED.
--- NOTE | 2020-08-21 02:51 | NUR ---
PT APPEARS TO BE SLEEPING COMFORTABLY, NO APPARENT DISTRESS, RESPIRATIONS REGULAR AND UNLABORED. ITEMS REMAIN WITHIN REACH, BED REMAINS LOCKED IN LOW POSITION W/ BEDRAILS UP X2. CALL MURILLO REMAINS WITHIN REACH.
[2020-08-21 04:00] VITALS: BP 96/60
[2020-08-21 07:05] VITALS: BP 90/59
--- NOTE | 2020-08-21 08:05 | NUR ---
ASSESSMENT DONE. PT IS A&O X3. PT DENIES PAIN AT THIS TIME. NO S/S OF DISTRESS NOTED. O2 AT 2L VIA NC. TELE IN PLACE. PT DENIES ANY NEEDS AT THIS TIME. CALL LIGHT IN REACH.
--- NOTE | 2020-08-21 12:00 | NUR ---
PT IS RESTING AND TALKING IN HER CELL PHONE WITH NO S/S OF DISTRESS NOTED. PT DENIES ANY OTHER NEEDS AT THIS TIME. CALL LIGHT IN REACH.
[2020-08-21 12:02] VITALS: BP 121/76
[2020-08-21 15:17] VITALS: BP 103/64
--- NOTE | 2020-08-21 16:00 | NUR ---
PT IS RESTING IN BED WITH NO S/S OF DISTRESS NOTED. PT DENIES ANY NEEDS AT THIS TIME. CALL LIGHT IN REACH.
[2020-08-21 19:00] VITALS: BP 113/72
--- NOTE | 2020-08-21 20:00 | NUR ---
PT IN ROOM, TALKING ON HER CELL PHONE, NO COMPLAINTS OFFERED AT THIS TIME, PT HAD MEDICATION THAT WAS REMOVED FROM THE ROOM TO BE GIVEN TO PHARMACY FOR REVIEW.
--- NOTE | 2020-08-21 23:22 | NUR ---
Pt resting in bed had PRN xanax 0.5mg at 2100 with good effect. VSS no c/o pain at this time.
[2020-08-22] VITALS: BP 105/64
[2020-08-22 04:00] VITALS: BP 96/57
[2020-08-22 04:52] LABS: HEMOGLOBIN 11.2 g/dl (12.0-16.0); MEAN CORPUSCULAR HGB 27.3 pG CALC (26.0-32.0); MEAN CORPUSCULAR HGB CONC 30.7 g/dL CAL (32.0-36.0); RED BLOOD COUNT 4.1 mill/uL (4.20-5.60); RED CELL DISTRI WIDTH 12.9 % (11.5-15.5)
[2020-08-22 05:01] LABS: ALBUMIN 3.4 g/dL (3.2-5.0); ALKALINE PHOSPHATASE 73 u/l (38-126); BUN 19 mg/dL (8-23); BUN/CREATININE RATIO 55 (12-20 (CALC)); CHLORIDE 106 mmol/l (95-108); CREATININE 0.3 mg/dL (0.5-1.0); GFR > 60 ML/MIN (>=60 (CALC)); GFR FOR AFR.AMER. > 60 ML/MIN (>=60 (CALC)); SGOT/AST 17 u/l (9-36); SODIUM 138 mmol/l (137-146); TOTAL PROTEIN 5.7 g/dL (6.3-8.2)
[2020-08-22 05:10] LABS: HEMATOCRIT 36.5 % (37.0-47.0)
[2020-08-22 05:15] LABS: ANION GAP 9 (6-22 (CALC)); BILIRUBIN, TOTAL 0.2 mg/dL (0.0-1.4); CARBON DIOXIDE 27 mmol/l (22-30)
--- NOTE | 2020-08-22 08:30 | NUR ---
ASSESSMENT DONE. PT IS A&O X3. PT DENIES PAIN AT THIS TIME. PT STATED SHE HAD BM YESTERDAY. 02 AT 2L VIA IN. TELE IN PLACE. NO S/S OF DISTRESS NOTED. CALL LIGHT IN REACH.
[2020-08-22 09:12] VITALS: BP 113/67
[2020-08-22 11:36] VITALS: BP 110/70
--- NOTE | 2020-08-22 11:51 | NUR ---
Discharge instructions given. Patient verbalizes understanding of same. Discharged in stable condition via Wheelchair to Home with spouse. All belongings sent with pt.
== END 2020-08-22 11:50 | disposition home or self-care (01) | DRG 191 ==
LOC: ED 11:44 → ED-I 12:26 → ED 12:26 → ED-I 16:38 → ED 16:49 → MS2 16:50
PROVIDERS: Family Medicine; Nurse Practitioner Family; ADMIT Internal Medicine; ATTEND Internal Medicine
DX: J44.1 Chronic obstructive pulmonary disease with (acute) exacerbation (principal); J96.10 Chronic respiratory failure, unspecified whether with hypoxia or hypercapnia; R04.2 Hemoptysis; R00.0 Tachycardia, unspecified; I10 Essential (primary) hypertension; G40.909 Epilepsy, unspecified, not intractable, without status epilepticus; E78.5 Hyperlipidemia, unspecified; F32.9 Major depressive disorder, single episode, unspecified; F41.9 Anxiety disorder, unspecified; Z87.891 Personal history of nicotine dependence; Z99.81 Dependence on supplemental oxygen; Z87.11 Personal history of peptic ulcer disease; Z87.01 Personal history of pneumonia (recurrent); Z20.828 Contact with and (suspected) exposure to other viral communicable diseases
CPT/HCPCS: G0378; Q9967

== ENCOUNTER 2021-02-16 09:28 | Observation (INO) | payer OTHER, MEDICAID ==
[~2021-02-16] VITALS: Ht 157.5 cm; Wt 57.0 kg
--- NOTE | 2021-02-16 09:29 | NUR ---
PT WHEELED BACK TO ROOM. PT PLACED ON O2.
[2021-02-16 09:58] LABS: GFR > 60 ML/MIN (>=60 (CALC)); GFR FOR AFR.AMER. > 60 ML/MIN (>=60 (CALC))
[2021-02-16 10:03] LABS: HEMATOCRIT 39.7 % (37.0-47.0); HEMOGLOBIN 12.4 g/dl (12.0-16.0); MEAN CELL VOLUME 86.9 fL CALC (80.0-100.0); MEAN CORPUSCULAR HGB 27.1 pG CALC (26.0-32.0); MEAN CORPUSCULAR HGB CONC 31.2 g/dL CAL (32.0-36.0); NEUT# 9.42 thou/uL (2.00-7.15); RED BLOOD COUNT 4.57 mill/uL (4.20-5.60); RED CELL DISTRI WIDTH 14.1 % (11.5-15.5)
[2021-02-16 10:25] LABS: ALBUMIN 4.1 g/dL (3.2-5.0); ALKALINE PHOSPHATASE 84 u/l (38-126); ANION GAP 8 (6-22 (CALC)); BUN 9 mg/dL (8-23); BUN/CREATININE RATIO 20 (12-20 (CALC)); CARBON DIOXIDE 35 mmol/l (22-30); CHLORIDE 95 mmol/l (95-108); CREATININE 0.4 mg/dL (0.5-1.0); GFR > 60 ML/MIN (>=60 (CALC)); GFR FOR AFR.AMER. > 60 ML/MIN (>=60 (CALC)); LIPASE 117 u/l (23-300); SGOT/AST 20 u/l (9-36); SODIUM 135 mmol/l (137-146); TOTAL PROTEIN 6.7 g/dL (6.3-8.2)
[2021-02-16 10:27] LABS: BILIRUBIN, TOTAL 0.5 mg/dL (0.0-1.4)
--- NOTE | 2021-02-16 11:05 | NUR ---
PATIENT RESTING STATES UNDERSTANDING OF CURRENT PPOC ASKS ABOUT RESULTS. PPOC REINFORCED AND RESULTS PENDING AT THIS TIME. PATIENT TO BE UPDATED UPON RESULTS. ADDITIONAL BLANKET AND PILLOW OFFERED AT THIS TIME. PATIENT DENIES ANY FURTHER NEEDS CURRENTLY.
[2021-02-16 11:25] LABS: URINE BILIRUBIN - DIPSTICK NEGATIVE (NEGATIVE); URINE BLOOD DIPSTICK NEGATIVE (NEGATIVE); URINE COLOR YELLOW; URINE GLUCOSE - DIPSTICK NEGATIVE (NEGATIVE); URINE KETONE NEGATIVE (NEGATIVE); URINE LEUK ESTERASE NEGATIVE (NEGATIVE); URINE PROTEIN - DIPSTICK NEGATIVE (NEG-TRACE); URINE UROBILINOGEN - DIPSTICK 0.2 E.U./dL (0.2)
[2021-02-16 11:26] LABS: URINE NITRITE - DIPSTICK NEGATIVE (Negative)
--- NOTE | 2021-02-16 12:23 | NUR ---
CALL FOR REPORT ROOM 267, NURSE TO RETURN CALL
[2021-02-16 13:05] VITALS: BP 143/89
--- NOTE | 2021-02-16 13:51 | NUR ---
RETURN CALL TO GIVE REPORT
--- NOTE | 2021-02-16 14:05 | NUR ---
PATIENT ADMITTED FROM ED AT THIS TIME TO THIS NURSE REPORT GIVEN BY DEZ MOHAN TO THIS NURSE. PATIENT ORIENTED TO ROOM AND SURROUNDINGS. PATIENT IS ALERT AND ORIENTED X 3 AND SLIGHTLY ANXIOUS AT THIS TIME. SIFTER OPERATOR DONE AT THIS TIME LUNG SOUNDS ARE DIMINISHED IN ALL LUNG CAI AND PATIENT IS ON O2 AT 2 LITERS HUMIDIFIED AIR AT THIS TIME. PATIENT DOES EXHIBITS BRUISING ON BILATERAL ARMS AND PATIENT STATES SHE WAS PREVIOUSLY IN ANOTHER HOSPITAL AND BRUISES WERE OBTAINED THERE. PATIENT DOES STATE HISTORY OF SEIZURES AND BEDSIDE RAILS ARE PADDED AT THIS TIME. PATIENT DOES HAVE TELE MONITOR IN PLACE AND IS READING S/T AT 103. PATIENT HAS NO EDEMA NOTED. SIDERAILS ARE UP X 2 AND PADDED AND CALL LIGHT IS WITHIN REACH.
--- NOTE | 2021-02-16 14:42 | NUR ---
PATIENT COMPLAINING OF LOWER BACK PAIN AND ANXIETY. PATIENT MEDICATED WITH 650MG OF TYLENOL AND 0.5 OF XANAX AT THIS TIME. SIDERAILS ARE UP AND PADDED X 2 AND CALL LIGHT AND PERSONAL ITEMS WITHIN REACH.
[2021-02-16 16:04] VITALS: BP 128/67
--- NOTE | 2021-02-16 16:15 | NUR ---
PATIENT RESTING IN BED AT THIS TIME. PATIENT DENIES ANY NEEDS CURRENTLY. CALL LIGHT AND PERSONAL ITEMS ARE WITHIN REACH PADDED SIDERAILS ARE UP X 2.
--- NOTE | 2021-02-16 16:29 | NUR ---
PT WOULD BENEFIT FROM PHYSICAL THERAPY EVALUATION IF MEDICAL AGREES.
--- NOTE | 2021-02-16 17:00 | NUR ---
SPOKE TO TELEMONITOR TECH PATIENTS TELE IS READING 93 AT THIS TIME.
[2021-02-16 19:18] VITALS: BP 120/67
[2021-02-17 00:11] VITALS: BP 124/74
--- NOTE | 2021-02-17 00:47 | NUR ---
LATE ENTRY FOR 02/16/21 @ 1999 Pt voices no complaints at this time. breathng even and unlabored. pt denies pain at this time. vs wnl. denies cough at this time. will monitor
--- NOTE | 2021-02-17 00:50 | NUR ---
PT RESTING QUIETLY AT THIS TIME. BREATHING EVEBN AND UNLABORED. PT C/O ANXIETY AND NURSE ADMINSTERED XANAX, WILL MONITOR FOR EFFECTIVENESS. INSTRUCTED PT ON UTILIZING CALL MURILLO WHEN NEEDED. WILL MONITOR
[2021-02-17 04:00] VITALS: BP 106/64; BP 120/67
--- NOTE | 2021-02-17 04:19 | NUR ---
PT RESTING COMFORTABLY IN BED AT THIS TIME. NO COMPLAINTS VOICED. BREATHING EVEN AND UNLABORED. BED IN LOWEST POSITION, CALL LIGHT WITHIN REACH. WILL MONITOR.
[2021-02-17 06:15] LABS: HEMATOCRIT 35.9 % (37.0-47.0); HEMOGLOBIN 10.8 g/dl (12.0-16.0); MEAN CELL VOLUME 88.2 fL CALC (80.0-100.0); MEAN CORPUSCULAR HGB 26.5 pG CALC (26.0-32.0); MEAN CORPUSCULAR HGB CONC 30.1 g/dL CAL (32.0-36.0); NEUT# 7.83 thou/uL (2.00-7.15); RED BLOOD COUNT 4.07 mill/uL (4.20-5.60)
--- NOTE | 2021-02-17 06:38 | NUR ---
PT RESTING COMFORTABLY IN BED. NAD. VSS. CELL ATTENDANT TO MONITOR.
[2021-02-17 06:43] LABS: ALBUMIN 3.3 g/dL (3.2-5.0); ALKALINE PHOSPHATASE 70 u/l (38-126); ANION GAP 9 (6-22 (CALC)); BILIRUBIN, TOTAL 0.4 mg/dL (0.0-1.4); BUN 15 mg/dL (8-23); BUN/CREATININE RATIO 45 (12-20 (CALC)); CALCULATED LDLCHOLESTEROL 138 mg/dL (62-129 (CALC)); CARBON DIOXIDE 32 mmol/l (22-30); CHLORIDE 96 mmol/l (95-108); CHOLESTEROL HDL RATIO 2.9 (<4.4 (CALC)); CREATININE 0.3 mg/dL (0.5-1.0); GFR > 60 ML/MIN (>=60 (CALC)); GFR FOR AFR.AMER. > 60 ML/MIN (>=60 (CALC)); HDL CHOLESTEROL 86 mg/dL (>=40); MAGNESIUM 2.5 mg/dL (1.6-2.3); POTASSIUM 4.2 mmol/l (3.5-5.1); SGOT/AST 16 u/l (9-36); SODIUM 133 mmol/l (137-146); TOTAL CHOLESTEROL 248 mg/dl (0-199); TOTAL PROTEIN 5.7 g/dL (6.3-8.2); TOTAL TRIGLYCERIDES 121 mg/dl (30-149); VLDL CHOLESTROL 24 mg/dl (1-41 (CALC))
[2021-02-17 07:10] VITALS: BP 112/65
--- NOTE | 2021-02-17 07:15 | NUR ---
PATIENT AWAKE AND SITTING UP IN BED AT THIS TIME. SALES AND SERVICE SPECIALIST DONE AT THIS TIME SEE INTERVENTIONS. NEURO CHECKS REMAIN UNCHANGED AND NEGATIVE FOR ANY DEFICITS AT THIS TIME. PATIENT LUNG CAI REMAIN DIMINISHED AND PATIENT HAS 02 ON AT 2L/HUMIDIFIED AIR AT THIS TIME. TELE MONITOR REMAINS IN PLACE AND BEING MONITORED BY ED. CALL LIGHT AND PERSONAL ITEMS ARE WTIHIN REACH SIDERAILS ARE PADDED FOR SEIZURE PERCAUTIONS AND UP X 2.
--- NOTE | 2021-02-17 12:10 | NUR ---
PATIENT SITTING UP AT BEDSIDE AT THIS TIME EATING LUNCH. PATIENT DENIENS ANY NEEDS AT THIS TIME. SIDERAILS ARE UP CALL LIGHT WITHIN REACH.
[2021-02-17 12:14] VITALS: BP 133/65
--- NOTE | 2021-02-17 13:10 | NUR ---
PT SITTING IN BED, COMFORTABLY. NAD. VSS. ORDER TO DELIVERY SUPERVISOR TO MONITOR.
--- NOTE | 2021-02-17 14:05 | NUR ---
PATIENT RESTING IN BED AT THIS TIME. PATIENT DENIES ANY NEEDS AT THIS TIME. SIDERAILS ARE PADDED AND UP X 2 CALL LIGHT AND PERSONAL ITEMS WITHIN REACH.
[2021-02-17 15:24] VITALS: BP 121/80
--- NOTE | 2021-02-17 16:00 | NUR ---
PATIENT DENIES ANY PAIN AT THIS TIME CALL LIGHT AND PERSONAL ITEMS WITHIN REACH. SIDERAILS ARE PADDED AND UP X 2
[2021-02-17 19:00] VITALS: BP 103/61
--- NOTE | 2021-02-17 19:52 | NUR ---
PT SITTING UP IN BED AT TIME OF ASSESSMENT. LUNGS DIMINSHED THROUGHOUT. BREATHING EVEN AND UNLABORED AT THIS TIME. DENIES PAIN, NO COMPLAITS VOICED. NO EDEMA NOTED, SKIN INTACT. BS ACTIVE X 4 QUADS. OXYGEN CONTINUES AT 2L VIA NC. O2 SATURATIONS WNL FOR PATIENT. WILL CONTINUE TO MONITOR.
--- NOTE | 2021-02-17 21:24 | NUR ---
PRN SONATA ADMINSTERED PER PT REQUEST FOR SLEEPLESSNESS. WILL MONITOR FOR EFFECTIVENESS.
--- NOTE | 2021-02-17 23:54 | NUR ---
PT REQUESTED XANAX FOR ANXIETY AND SLEEPLESSNESS. MEDICATION ADMINSTERED PER ORDER. WILL MONITOR FOR EFFECTIVENESS
[2021-02-18 00:30] VITALS: BP 117/71
[2021-02-18 04:30] VITALS: BP 101/59
--- NOTE | 2021-02-18 04:30 | NUR ---
PT QUIETLY RESTING IN BED. O2 CONTINUES @ 2L VIA NC. BREATHING EVEN AND UNLABORED. PT REPORTS SHE IS FEELING MUCH BETTER THAN WHEN SHE FIRST CAME TO HOSPITAL. DENIES PAIN. DENIES ANY COMPLAINTS AT THIS TIME. TELE SR 62. WILL MONITOR.
[2021-02-18 05:31] LABS: HEMATOCRIT 34.9 % (37.0-47.0); HEMOGLOBIN 10.5 g/dl (12.0-16.0); MEAN CELL VOLUME 88.8 fL CALC (80.0-100.0); MEAN CORPUSCULAR HGB 26.7 pG CALC (26.0-32.0); MEAN CORPUSCULAR HGB CONC 30.1 g/dL CAL (32.0-36.0); RED BLOOD COUNT 3.93 mill/uL (4.20-5.60)
[2021-02-18 05:43] LABS: ANION GAP 6 (6-22 (CALC)); BUN 14 mg/dL (8-23); BUN/CREATININE RATIO 29 (12-20 (CALC)); CARBON DIOXIDE 33 mmol/l (22-30); CHLORIDE 99 mmol/l (95-108); CREATININE 0.5 mg/dL (0.5-1.0); GFR > 60 ML/MIN (>=60 (CALC)); GFR FOR AFR.AMER. > 60 ML/MIN (>=60 (CALC)); MAGNESIUM 2.1 mg/dL (1.6-2.3); POTASSIUM 3.7 mmol/l (3.5-5.1); SODIUM 135 mmol/l (137-146)
[2021-02-18 07:10] VITALS: BP 98/50
--- NOTE | 2021-02-18 07:15 | NUR ---
PATIENT ALERT AND ORIENTED AT THIS TIME DENIES ANY PAIN LIDDING MACHINE OPERATOR DONE LUNG SOUNDS DIMINISHED TELE ON AND MONITORED BY ED. 02 ON AT 2 L HUMIDIFIED AIR AT THIS TIME. SIDERAILS UP CALL LIGHT WITHIN REACH.
--- NOTE | 2021-02-18 07:28 | NUR ---
PT RESTING COMFORTABLY IN BED. NO ACUTE DISTRESS NOTED. VSS. STORE RECEIVER TO MONITOR.
[2021-02-18] MEDS ORDERED: PREDNISONE10 MG PO (08:13)
[2021-02-18] MEDS ORDERED: LEVOFLOXACIN750 MG PO (08:14)
[2021-02-18 09:07] VITALS: BP 98/50
--- NOTE | 2021-02-18 09:55 | NUR ---
PATIENT D/C AT THIS TIME. PATIENT VERBALIZES UNDERSTANDING OF D/C INSTRUCITONS.
--- NOTE | 2021-02-18 10:01 | NUR ---
Discharge instructions given. Patient verbalizes understanding of same. Discharged in condition via Wheelchair to Home with family. All belongings sent with pt. PATIENT LEFT IN STABLE CONDITION.
--- NOTE | 2021-02-24 13:22 | NUR ---
Pneumonia post discharge follow up call completed today. Pt. is doing well. No fever, chills, or unusual SOB. Pt saw PCP this week. She obtained and has taken the medication prescribed for her at discharge. No issues or questions voiced by patient at this time. Appreciative of call.
== END 2021-02-18 10:01 | disposition home or self-care (01) | DRG 190 ==
LOC: ED 09:28 → ED-I 11:25 → ED 11:41 → MS2 11:42
PROVIDERS: Family Medicine; Nurse Practitioner; ADMIT Internal Medicine; ATTEND Internal Medicine
DX: J43.9 Emphysema, unspecified (principal); J18.9 Pneumonia, unspecified organism; J96.12 Chronic respiratory failure with hypercapnia; J96.11 Chronic respiratory failure with hypoxia; I10 Essential (primary) hypertension; E78.5 Hyperlipidemia, unspecified; F32.9 Major depressive disorder, single episode, unspecified; F41.9 Anxiety disorder, unspecified; Z87.01 Personal history of pneumonia (recurrent); Z87.891 Personal history of nicotine dependence; Z20.822 Contact with and (suspected) exposure to COVID-19
CPT/HCPCS: G0378; J1650; Q9967

== ENCOUNTER 2021-08-12 11:21 | Emergency (ER) | payer OTHER, MEDICAID ==
[~2021-08-12] VITALS: Ht 157.5 cm; Wt 53.0 kg
[~2021-08-12 11:21] MED LIST changes: +LEVOFLOXACIN750 MG PO
[2021-08-12] MEDS ORDERED: THEOPHYLLINE S200 MG PO (11:57)
[2021-08-12] MEDS ORDERED: MONTELUKAST SOD10 MG PO (11:58)
[2021-08-12] MEDS ORDERED: SPIRIVA IN (11:58)
[2021-08-12 12:16] LABS: GFR > 60 ML/MIN (>=60 (CALC)); GFR FOR AFR.AMER. > 60 ML/MIN (>=60 (CALC))
[2021-08-12 12:20] LABS: HEMATOCRIT 37.6 % (37.0-47.0); HEMOGLOBIN 11.5 g/dl (12.0-16.0); IMMATURE GRANULOCYTES 0.2 % (0.0-5.0); MEAN CORPUSCULAR HGB 26.6 pG CALC (26.0-32.0); MEAN CORPUSCULAR HGB CONC 30.6 g/dL CAL (32.0-36.0); NEUT# 3.17 thou/uL (2.00-7.15); RED BLOOD COUNT 4.32 mill/uL (4.20-5.60); RED CELL DISTRI WIDTH 13.8 % (11.5-15.5)
[2021-08-12 12:30] LABS: ALBUMIN 4.1 g/dL (3.2-5.0); ALKALINE PHOSPHATASE 81 u/l (38-126); ANION GAP 7 (6-22 (CALC)); BILIRUBIN, TOTAL 0.3 mg/dL (0.0-1.4); BUN 9 mg/dL (8-23); BUN/CREATININE RATIO 17 (12-20 (CALC)); CARBON DIOXIDE 33 mmol/l (22-30); CHLORIDE 101 mmol/l (95-108); CREATININE 0.5 mg/dL (0.5-1.0); GFR > 60 ML/MIN (>=60 (CALC)); GFR FOR AFR.AMER. > 60 ML/MIN (>=60 (CALC)); LIPASE 84 u/l (23-300); POTASSIUM 3.9 mmol/l (3.5-5.1); SGOT/AST 28 u/l (9-36); SODIUM 136 mmol/l (137-146); TOTAL PROTEIN 7.3 g/dL (6.3-8.2)
[2021-08-12 13:00] LABS: URINE BILIRUBIN - DIPSTICK NEGATIVE (NEGATIVE); URINE BLOOD DIPSTICK TRACE-INTACT (NEGATIVE); URINE COLOR YELLOW; URINE GLUCOSE - DIPSTICK NEGATIVE (NEGATIVE); URINE KETONE NEGATIVE (NEGATIVE); URINE LEUK ESTERASE NEGATIVE (NEGATIVE); URINE PH 7.5 (4.5-8.0); URINE PROTEIN - DIPSTICK NEGATIVE (NEG-TRACE); URINE SPECIFIC GRAVITY <=1.005; URINE UROBILINOGEN - DIPSTICK 0.2 E.U./dL (0.2)
[2021-08-12 13:06] LABS: URINE NITRITE - DIPSTICK NEGATIVE (Negative)
[2021-08-12 17:05] VITALS: BP 131/61
== END 2021-08-12 17:30 | disposition short-term general hospital (02) | DRG 379 ==
LOC: ED 11:21
PROVIDERS: Family Medicine
DX: K92.2 Gastrointestinal hemorrhage, unspecified (principal); J44.9 Chronic obstructive pulmonary disease, unspecified; I10 Essential (primary) hypertension; G40.909 Epilepsy, unspecified, not intractable, without status epilepticus; Z87.11 Personal history of peptic ulcer disease
CPT/HCPCS: Q9967; S0164

== ENCOUNTER 2021-10-23 22:11 | Observation (INO) | payer OTHER, MEDICAID ==
[~2021-10-23] VITALS: Ht 157.5 cm; Wt 53.0 kg
[~2021-10-23 22:11] MED LIST changes: +MONTELUKAST SOD10 MG PO; +[UNRECOGNIZED DRUG - CODE] PO
[2021-10-23 22:51] LABS: HEMATOCRIT 42.6 % (37.0-47.0); HEMOGLOBIN 12.7 g/dl (12.0-16.0); IMMATURE GRANULOCYTES 0.3 % (0.0-5.0); MEAN CELL VOLUME 86.2 fL CALC (80.0-100.0); MEAN CORPUSCULAR HGB 25.7 pG CALC (26.0-32.0); MEAN CORPUSCULAR HGB CONC 29.8 g/dL CAL (32.0-36.0); NEUT# 9.64 thou/uL (2.00-7.15); RED BLOOD COUNT 4.94 mill/uL (4.20-5.60); RED CELL DISTRI WIDTH 14.3 % (11.5-15.5)
[2021-10-23 23:02] LABS: ALKALINE PHOSPHATASE 85 u/l (38-126); ANION GAP 11 (6-22 (CALC)); BILIRUBIN, TOTAL 0.3 mg/dL (0.0-1.4); BUN 11 mg/dL (8-23); BUN/CREATININE RATIO 22 (12-20 (CALC)); CARBON DIOXIDE 31 mmol/l (22-30); CHLORIDE 97 mmol/l (95-108); CREATININE 0.5 mg/dL (0.5-1.0); GFR > 60 ML/MIN (>=60 (CALC)); GFR FOR AFR.AMER. > 60 ML/MIN (>=60 (CALC)); POTASSIUM 3.9 mmol/l (3.5-5.1); SGOT/AST 20 u/l (9-36); SODIUM 135 mmol/l (137-146); TOTAL PROTEIN 7.3 g/dL (6.3-8.2)
[2021-10-24 00:25] VITALS: BP 148/65
[2021-10-24 04:00] VITALS: BP 125/62
[2021-10-24 05:55] LABS: HEMOGLOBIN 11.5 g/dl (12.0-16.0); MEAN CELL VOLUME 84.7 fL CALC (80.0-100.0); MEAN CORPUSCULAR HGB 26.7 pG CALC (26.0-32.0); MEAN CORPUSCULAR HGB CONC 31.5 g/dL CAL (32.0-36.0); RED BLOOD COUNT 4.31 mill/uL (4.20-5.60); RED CELL DISTRI WIDTH 14.3 % (11.5-15.5)
[2021-10-24 05:57] LABS: HEMATOCRIT 36.5 % (37.0-47.0)
[2021-10-24 06:05] LABS: ANION GAP 10 (6-22 (CALC)); BUN 12 mg/dL (8-23); BUN/CREATININE RATIO 28 (12-20 (CALC)); CARBON DIOXIDE 32 mmol/l (22-30); CHLORIDE 97 mmol/l (95-108); CREATININE 0.4 mg/dL (0.5-1.0); GFR > 60 ML/MIN (>=60 (CALC)); GFR FOR AFR.AMER. > 60 ML/MIN (>=60 (CALC)); MAGNESIUM 2.1 mg/dL (1.6-2.3); POTASSIUM 4.2 mmol/l (3.5-5.1); SODIUM 136 mmol/l (137-146)
[2021-10-24 08:21] VITALS: BP 143/70
[2021-10-24] MEDS ORDERED: PROAIR HFA108 MCG/AC IN (09:09)
[2021-10-24 14:29] VITALS: BP 138/70
[2021-10-24 19:00] VITALS: BP 125/74
[2021-10-25 04:00] VITALS: BP 130/68
[2021-10-25 05:25] LABS: HEMOGLOBIN 10.9 g/dl (12.0-16.0); MEAN CELL VOLUME 84.1 fL CALC (80.0-100.0); MEAN CORPUSCULAR HGB 26.2 pG CALC (26.0-32.0); MEAN CORPUSCULAR HGB CONC 31.1 g/dL CAL (32.0-36.0); RED BLOOD COUNT 4.16 mill/uL (4.20-5.60); RED CELL DISTRI WIDTH 14.4 % (11.5-15.5)
[2021-10-25 05:44] LABS: ANION GAP 8 (6-22 (CALC)); BUN 24 mg/dL (8-23); BUN/CREATININE RATIO 41 (12-20 (CALC)); CARBON DIOXIDE 33 mmol/l (22-30); CHLORIDE 98 mmol/l (95-108); CREATININE 0.6 mg/dL (0.5-1.0); GFR > 60 ML/MIN (>=60 (CALC)); GFR FOR AFR.AMER. > 60 ML/MIN (>=60 (CALC)); MAGNESIUM 2.2 mg/dL (1.6-2.3); POTASSIUM 3.9 mmol/l (3.5-5.1); SODIUM 135 mmol/l (137-146)
[2021-10-25 07:48] VITALS: BP 141/63
[2021-10-25] MEDS ORDERED: DOXYCYCL HYC100 MG PO (11:19)
[2021-10-25] MEDS ORDERED: IPRATROPIU0.5 MG/3 M IN (11:21)
[2021-10-25] MEDS ORDERED: PREDNISONE10 MG PO (11:23)
[2021-10-25 15:00] VITALS: BP 122/78
== END 2021-10-25 15:50 | disposition home or self-care (01) | DRG 191 ==
LOC: ED 22:11 → ED-I 23:24 → ED 23:38 → MS2 23:39
PROVIDERS: Family Medicine; Nurse Practitioner; ADMIT Hospitalist; ATTEND Hospitalist
DX: J44.1 Chronic obstructive pulmonary disease with (acute) exacerbation (principal); J96.12 Chronic respiratory failure with hypercapnia; J96.11 Chronic respiratory failure with hypoxia; J44.0 Chronic obstructive pulmonary disease with (acute) lower respiratory infection; J20.9 Acute bronchitis, unspecified; I10 Essential (primary) hypertension; G40.909 Epilepsy, unspecified, not intractable, without status epilepticus; E78.5 Hyperlipidemia, unspecified; F32.A Depression, unspecified; F41.9 Anxiety disorder, unspecified; Z99.81 Dependence on supplemental oxygen; Z87.01 Personal history of pneumonia (recurrent); Z87.891 Personal history of nicotine dependence; Z20.822 Contact with and (suspected) exposure to COVID-19
CPT/HCPCS: G0378; J1650

== ENCOUNTER 2021-10-30 18:30 | Observation (INO) | payer OTHER, MEDICAID ==
[~2021-10-30] VITALS: Ht 157.5 cm; Wt 47.2 kg
[~2021-10-30 18:30] MED LIST changes: +IPRATROPIU0.5 MG/3 M IN; +PROAIR HFA108 MCG/AC IN
--- NOTE | 2021-10-30 18:30 | NUR ---
TO ROOM VIA EMS, PT IN HIGH FOWLERS IN RESP DISTRESS, MD AT BEDSIDE
--- NOTE | 2021-10-30 18:39 | NUR ---
RESPIRATORY IN WITH PT DRAWING BLOOD GASES
[2021-10-30 19:29] LABS: HEMOGLOBIN 12.5 g/dl (12.0-16.0); IMMATURE GRANULOCYTES 0.5 % (0.0-5.0); MEAN CELL VOLUME 84.4 fL CALC (80.0-100.0); MEAN CORPUSCULAR HGB 26.4 pG CALC (26.0-32.0); MEAN CORPUSCULAR HGB CONC 31.3 g/dL CAL (32.0-36.0); NEUT# 13.1 thou/uL (2.00-7.15); RED BLOOD COUNT 4.74 mill/uL (4.20-5.60); RED CELL DISTRI WIDTH 14.2 % (11.5-15.5)
[2021-10-30 19:36] LABS: ALBUMIN 4.1 g/dL (3.2-5.0); ALKALINE PHOSPHATASE 70 u/l (38-126); ANION GAP 10 (6-22 (CALC)); BILIRUBIN, TOTAL 0.4 mg/dL (0.0-1.4); BUN 12 mg/dL (8-23); BUN/CREATININE RATIO 28 (12-20 (CALC)); CARBON DIOXIDE 36 mmol/l (22-30); CHLORIDE 94 mmol/l (95-108); CREATININE 0.4 mg/dL (0.5-1.0); GFR > 60 ML/MIN (>=60 (CALC)); GFR FOR AFR.AMER. > 60 ML/MIN (>=60 (CALC)); POTASSIUM 4.1 mmol/l (3.5-5.1); SGOT/AST 26 u/l (9-36); SODIUM 135 mmol/l (137-146); TOTAL PROTEIN 7.2 g/dL (6.3-8.2)
--- NOTE | 2021-10-30 20:33 | NUR ---
ELVER PLACED TO MED/SURG TO GIVE REPORT. NURSE NOT AVAILABLE, WILL CALL BACK.
--- NOTE | 2021-10-30 20:35 | NUR ---
DR WHALEN LOWERED OXYGEN TO 2L, PT NOW SATTING 88-89%
--- NOTE | 2021-10-30 21:27 | NUR ---
PT RESTING COMFORTABLY, BREATHING IMPROVED OXYGEN SATURATION AT 95% ON 4L.
--- NOTE | 2021-10-30 21:41 | NUR ---
SBAR REPORT CALLED TO KIMBERLEE ABBASI MED/SURG. PT TO GO TO ROOM 274.
--- NOTE | 2021-10-30 21:46 | NUR ---
PT TRANSPORTED TO MED SURG VIA STRETCHER. ALL BELONGINGS WITH PT
--- NOTE | 2021-10-30 21:50 | NUR ---
PT'S BELONGINGS AND PAPERWORK HANDED OFF TO MED/SURG STAFF. PT INSTABLE CONDITION AT TIME OF ADMISSION.
--- NOTE | 2021-10-30 22:00 | NUR ---
PT RECEIVED FROM ED TO ROOM 274. ARRIVES VIA WC BY BRANDI MOHAN. PT AMBULATORY TO BED. GAIT UNSTEADY. PT DENIES PAIN AT THIS TIME. ORIENTED TO UNIT, ROOM, CALL MURILLO, LIGHTS, TV. ICE WATER PROVIDED. CALL MURILLO WITHIN REACH. AGREES TO CALL PRN.
[2021-10-30 22:10] VITALS: BP 130/75
--- NOTE | 2021-10-30 22:15 | NUR ---
PHYSICAL ASSESMENT COMPLETE. PT CURRENTLY DENIES PAIN OR DISCOMFORT. PT IS SOMEWHAT ANXIOUS. SCHEDULED MEDICATIONS AND PRN MEDICATION ADMINISTERED, SEE E-MAR. PT REQUEST MOISTURIZED O2. CONSULTED RESPITORY. PT DENIES ANY NEEDS AT THIS TIME. PLAN OF CARE REVIEWED, PT DENIES QUESTIONS, VERBALIZES UNDERSTANDING. ITEMS WITHIN REACH, BED LOCKED IN LOW POSITION W/ BEDRAILS UP X2. CALL MURILLO WITHIN REACH, AGREES TO CALL PRN.
[2021-10-31 00:12] VITALS: BP 119/52
--- NOTE | 2021-10-31 04:07 | NUR ---
PT LAYING IN BED WITH EYES CLOSED, APPEARS TO BE SLEEPING, APPEARS COMFORTABLE AND IN NO DISTRESS. RESPIRATIONS REGULAR AND UNLABORED. ITEMS REMAIN WITHIN REACH, CALL MURILLO REMAINS WITHIN REACH. BED REMAINS LOCKED AND IN LOW POSITION WITH BEDRAILS UP X2. WILL CONTINUE TO MONITOR.
[2021-10-31 04:10] VITALS: BP 117/62
[2021-10-31 05:26] LABS: HEMATOCRIT 37.4 % (37.0-47.0); HEMOGLOBIN 11.4 g/dl (12.0-16.0); IMMATURE GRANULOCYTES 0.6 % (0.0-5.0); MEAN CELL VOLUME 84.8 fL CALC (80.0-100.0); MEAN CORPUSCULAR HGB 25.9 pG CALC (26.0-32.0); MEAN CORPUSCULAR HGB CONC 30.5 g/dL CAL (32.0-36.0); NEUT# 9.54 thou/uL (2.00-7.15); RED BLOOD COUNT 4.41 mill/uL (4.20-5.60); RED CELL DISTRI WIDTH 14.2 % (11.5-15.5)
[2021-10-31 05:53] LABS: ALBUMIN 3.5 g/dL (3.2-5.0); ALKALINE PHOSPHATASE 64 u/l (38-126); ANION GAP 12 (6-22 (CALC)); BILIRUBIN, TOTAL 0.5 mg/dL (0.0-1.4); BUN 14 mg/dL (8-23); BUN/CREATININE RATIO 34 (12-20 (CALC)); CARBON DIOXIDE 34 mmol/l (22-30); CHLORIDE 93 mmol/l (95-108); CREATININE 0.4 mg/dL (0.5-1.0); GFR > 60 ML/MIN (>=60 (CALC)); GFR FOR AFR.AMER. > 60 ML/MIN (>=60 (CALC)); POTASSIUM 4.1 mmol/l (3.5-5.1); SGOT/AST 20 u/l (9-36); SODIUM 135 mmol/l (137-146); TOTAL PROTEIN 6.1 g/dL (6.3-8.2)
[2021-10-31 07:10] VITALS: BP 122/74
--- NOTE | 2021-10-31 07:10 | NUR ---
PATIENT RESTING IN BED AT THIS TIME. O2 ON AT 4L LUNG CAI ARE DIMINISHED THROUGHOUT ALL LUNG CAI. PATIENT DENIES ANY PAIN TELE MONITOR ON AND BEING MONITORED BY ED. SIDERAILS ARE UP CALL LIGHT WITHIN REACH. SHIP JOINER DONE SEE INTERVENTIONS. RT IN AND GIVING RT THERAPY TREATMENT AT THIS TIME.
[2021-10-31 11:24] VITALS: BP 137/74
--- NOTE | 2021-10-31 11:39 | NUR ---
PATIENT SITTING UP IN CHAIR AT THIS TIME. PATIENT DENIES ANY NEEDS AND CALL LIGHT IS WITHIN REACH. TELE MONITOR REMAINS IN PLACE AND BEING MONITORED BY ED.
[2021-10-31 15:42] VITALS: BP 139/78
--- NOTE | 2021-10-31 16:05 | NUR ---
PATIENT RESTING IN BED AT THIS TIME. DENIES ANY PAIN AND NEEDS AT THIS TIME. TELE MONITOR IN PLACE AND BEING MONITORED BY ED. 02 REMAINS ON AT 4 LITERS AT THIS TIME AND LUNG CAI REMAIN DIMINISHED IN ALL CAI. NEURO CHECKS REMAIN UNCHANGED AT THIS TIME. SIDERAILS ARE UP CALL LIGHT WITHIN REACH.
--- NOTE | 2021-10-31 17:16 | NUR ---
PATIENT GIVEN 0.5MG OF XANAX AT THIS TIME FOR MILD ANXIETY. SIDERAILS ARE UP X 2 AND PADDED CALL LIGHT WITHIN REACH. WILL CONTINUE TO MONITOR.
--- NOTE | 2021-10-31 19:25 | NUR ---
PATIENT ALERT AND ORIENTED. PLEASANT. ABLE TO MAKE NEEDS KNOWN. VISITING WITH FAMILY MEMBER IN ROOM. DENIES ANY PAIN. ASSESSMENT COMPLETE. CALL LIGHT AND BELONGINGS WITHIN REACH.
[2021-10-31 20:03] VITALS: BP 126/72
[2021-11-01 00:10] VITALS: BP 105/64
--- NOTE | 2021-11-01 00:30 | NUR ---
RESTING IN BED QUIETLY. NO DISTRESS NOTED. CALL LIGHT AND BELONGINGS REMAIN IN PATIENTS REACH.
[2021-11-01 04:00] VITALS: BP 116/59
--- NOTE | 2021-11-01 04:10 | NUR ---
RESTING IN BED IN SEMI FOWLERS POSITION. OXYGEN REMAINS ON PATIENT VIA NC. NO DISTRESS NOTED. CALL LIGHT AND BELONGINGS REMAIN IN PATIENTS REACH.
[2021-11-01 06:38] LABS: HEMATOCRIT 36.1 % (37.0-47.0); HEMOGLOBIN 11.2 g/dl (12.0-16.0); MEAN CELL VOLUME 85.3 fL CALC (80.0-100.0); MEAN CORPUSCULAR HGB 26.5 pG CALC (26.0-32.0); RED BLOOD COUNT 4.23 mill/uL (4.20-5.60); RED CELL DISTRI WIDTH 14.4 % (11.5-15.5)
[2021-11-01 06:51] LABS: ANION GAP 9 (6-22 (CALC)); BUN 22 mg/dL (8-23); BUN/CREATININE RATIO 36 (12-20 (CALC)); CARBON DIOXIDE 37 mmol/l (22-30); CHLORIDE 95 mmol/l (95-108); CREATININE 0.6 mg/dL (0.5-1.0); GFR > 60 ML/MIN (>=60 (CALC)); GFR FOR AFR.AMER. > 60 ML/MIN (>=60 (CALC)); MAGNESIUM 2.3 mg/dL (1.6-2.3); POTASSIUM 4.4 mmol/l (3.5-5.1); SODIUM 136 mmol/l (137-146)
--- NOTE | 2021-11-01 08:00 | NUR ---
PT SITTING ON BED UPON ENTERING ROOM. ANXIOUS OVER BREATHING. VERBAL RELAXATION/ BREATHING TECHNIQUES INSTRUCTED. PT ABLE TO DEMONSTRATE BACK. PT ON 4L OF O2 NASAL CANNULA, PT IS O2 DEPENDEDNT AT HOME. ASSESSMENT ALLOWED AT THIS TIME. LUNG SOUNDS ARE DIMINISHED R AND L LOWER LOBE, R AND L UPPER LOBE IS CLEAR UPON AUSCULATION. HEART SOUNDS ARE REGULAR. BOWEL SOUNDS HEARD X4. PT REPORTS NO PAIN AT THIS TIME. TELE MONITOR IN PLACE. FALL PRECAUTIONS ARE IN PLACE. CALL LIGHT AND PERSONAL ITEMS WITHIN REACH.
[2021-11-01 10:37] VITALS: BP 123/58
--- NOTE | 2021-11-01 12:00 | NUR ---
PT SITTING IN BED EATING LUNCH. REPORTS NO PAIN AND STATES NO OTHER NEEDS AT THIS TIME. CALL LIGHT WITHIN REACH. FALL PRECAUTIONS ARE IN PLACE.
--- NOTE | 2021-11-01 12:30 | NUR ---
S- Pt reported using 02 at home 2 l. 0- Pt sitting style in bed [address] [place] [facility]. LE ex performed in sitting including AROM to ankle, LAQ, hip marching 2 x 10 reps with frequent rest periods and verbal cues for breathing. Gait x 20' 2x with CGA/min assist for balance. Spirometer max to 1250, but mostly 750cc. Pt left in chair with visitor present, bedside tray and call barahona in reach. Time spent with pt 35 min. 0- Pt with weakness, [facility] P- will follow.
[2021-11-01] MEDS ORDERED: PREDNISONE20 MG PO (14:31)
--- NOTE | 2021-11-01 15:03 | NUR ---
RT AT BEDSIDE. ADMINISTERING BREATHING TREATMENT.
--- NOTE | 2021-11-01 16:09 | NUR ---
Discharge instructions given. Patient verbalizes understanding of same. Discharged in .stable condition via Wheelchair to Home with family. ACCOMPANIED BY KIMBERLEE LARES. PT LEFT WITH O2 4L NASAL CANNULA AND HOME MEDICATION THAT WERE BROUGHT TO HOSPITAL. All belongings sent with pt.
== END 2021-11-02 03:14 | disposition home health service (06) | DRG 191 ==
LOC: ED 18:30 → ED-I 20:08 → ED 20:21 → MS2 20:22
PROVIDERS: Family Medicine; Nurse Practitioner; ADMIT Internal Medicine; ATTEND Internal Medicine
DX: J44.1 Chronic obstructive pulmonary disease with (acute) exacerbation (principal); J20.9 Acute bronchitis, unspecified; J44.0 Chronic obstructive pulmonary disease with (acute) lower respiratory infection; J96.12 Chronic respiratory failure with hypercapnia; J96.11 Chronic respiratory failure with hypoxia; E87.6 Hypokalemia; I10 Essential (primary) hypertension; F41.1 Generalized anxiety disorder; G40.909 Epilepsy, unspecified, not intractable, without status epilepticus; E78.5 Hyperlipidemia, unspecified; F32.A Depression, unspecified; Z60.2 Problems related to living alone; Z99.81 Dependence on supplemental oxygen; Z87.891 Personal history of nicotine dependence; Z87.01 Personal history of pneumonia (recurrent); Z20.822 Contact with and (suspected) exposure to COVID-19
CPT/HCPCS: J1650; J2060

== ENCOUNTER 2021-11-14 11:05 | Observation (INO) | payer OTHER, MEDICAID ==
[~2021-11-14] VITALS: Ht 157.5 cm; Wt 53.0 kg
--- NOTE | 2021-11-14 11:05 | NUR ---
PT TO ROOM VIA EMS.
[2021-11-14 11:44] LABS: HEMATOCRIT 36.7 % (37.0-47.0); HEMOGLOBIN 11.2 g/dl (12.0-16.0); IMMATURE GRANULOCYTES 0.5 % (0.0-5.0); MEAN CELL VOLUME 86.8 fL CALC (80.0-100.0); MEAN CORPUSCULAR HGB 26.5 pG CALC (26.0-32.0); MEAN CORPUSCULAR HGB CONC 30.5 g/dL CAL (32.0-36.0); NEUT# 5.84 thou/uL (2.00-7.15); RED BLOOD COUNT 4.23 mill/uL (4.20-5.60); RED CELL DISTRI WIDTH 14.9 % (11.5-15.5)
[2021-11-14 12:05] LABS: ALBUMIN 3.8 g/dL (3.2-5.0); ALKALINE PHOSPHATASE 76 u/l (38-126); ANION GAP 7 (6-22 (CALC)); BILIRUBIN, TOTAL 0.4 mg/dL (0.0-1.4); BUN 8 mg/dL (8-23); BUN/CREATININE RATIO 17 (12-20 (CALC)); CARBON DIOXIDE 34 mmol/l (22-30); CHLORIDE 98 mmol/l (95-108); CREATININE 0.5 mg/dL (0.5-1.0); GFR > 60 ML/MIN (>=60 (CALC)); GFR FOR AFR.AMER. > 60 ML/MIN (>=60 (CALC)); POTASSIUM 3.7 mmol/l (3.5-5.1); SGOT/AST 22 u/l (9-36); SODIUM 135 mmol/l (137-146); TOTAL PROTEIN 7.1 g/dL (6.3-8.2)
--- NOTE | 2021-11-14 12:10 | NUR ---
Reassessment of patient completed. No distress noted.
[2021-11-14 12:14] LABS: MYOGLOBIN 19 ng/mL (0 - 62)
--- NOTE | 2021-11-14 13:15 | NUR ---
Reassessment of patient completed. No distress noted.
--- NOTE | 2021-11-14 14:10 | NUR ---
Reassessment of patient completed. No distress noted.
--- NOTE | 2021-11-14 15:10 | NUR ---
Reassessment of patient completed. No distress noted.
--- NOTE | 2021-11-14 16:10 | NUR ---
Reassessment of patient completed. No distress noted.
--- NOTE | 2021-11-14 17:10 | NUR ---
Reassessment of patient completed. No distress noted.
--- NOTE | 2021-11-14 18:05 | NUR ---
PT ARRVIED VIA ACCOMPANIED BY CHERELLE MOHAN. ORIENTED PT TO ROOM. O2 VIA NC @2L IN PLACE; PT HOME O2 DEPENDENT. PT DENIES ANY HEADACHE AT THIS TIME. STATES THE MEDICATIONS HELPED. ORIENTED PT TO ROOM. CALL LIGHT WITHIN REACH.
--- NOTE | 2021-11-14 18:09 | NUR ---
PATIENT TRANSPORTED TO ROOM 288 VIA WHEELCHAIR ON NC 2 L. HAND OFF REPORT GIVEN TO AILYN. CONNECTED PATIENT TO O2 IN MED SURGE ROOM. NO ACUTE DISTRESS. NURSE AT THE STATION NOTIFIED OF PATIENT STATUS AND ROOMING.
[2021-11-14 19:00] VITALS: BP 144/80
--- NOTE | 2021-11-14 21:00 | NUR ---
PATIENT RESTIING IN BED AT THIS TIME POSITIONED ON LEFT SIDE WITH O2 VIA NASAL CANNULA IN PLACE. O2 SAT IS 95%. TELE MONITOR IN PLACE AND SHOWING ST-114. SALINE LOCK TO LEFT HAND INTACT. PATIENT REFUSING HER LOVENOX EVEN AFTER BEING EDUCATED ON INDICATION FOR USE. MEDICATED FOR ANXIETY WITH XANAX 0.5MG PO ORDERED. PATIENT STATES THAT HER HEADACHE IS FINALLY GONE. ORIENTED TO ROOM AND SURROUNDINGS. INSTRUCTED ON USE OF NURSE CALL LIGHT SYSTEM AND TV REMOTE. SAFETY PRECAUTIONS REINFORCED. CALL LIGHT IN REACH. WILL CONT TO MONITOR.
[2021-11-14 23:50] VITALS: BP 107/62
[2021-11-15] VITALS (7 sets, daily range): BP systolic 112–180; BP diastolic 62–78
--- NOTE | 2021-11-15 00:08 | NUR ---
PATIENT RESTING IN BED AT THIS TIME-POSITIONED ON LEFT SIDE WITH O2 VIA NASAL CANNULA IN PLACE AT 2LPM. O2 SAT IS 98% AT THIS TIME. EYES ARE CLOSED AND RESPS ARE EVEN AND UNLABORED AT THIS TIME. TELE MONITOR IN PLACE. SALINE LOCK TO LAC INTACT. CALL LISGHT IN REACH. WILL CONT TO MONITOR.
--- NOTE | 2021-11-15 04:45 | NUR ---
PATIENT CALLED AND C/O HEADACHE AGAIN-MEDICATED WITH FIROCET 1 TABLET FOR HEADACHE. O2 VIA NASAL CANNULA IN PLACE-LAST O2 SAT WAS 98%. TELE MONITOR IN PLACE-LAST READING WAS ST-100. SALINE LOCK TO LEFT HAND REMAINS HEALTHY. CALL LIGHT IN REACH. WILL CONT TO MONITOR. -
[2021-11-15 05:50] LABS: HEMATOCRIT 40.2 % (37.0-47.0); HEMOGLOBIN 11.9 g/dl (12.0-16.0); MEAN CELL VOLUME 87.6 fL CALC (80.0-100.0); MEAN CORPUSCULAR HGB 25.9 pG CALC (26.0-32.0); MEAN CORPUSCULAR HGB CONC 29.6 g/dL CAL (32.0-36.0); RED BLOOD COUNT 4.59 mill/uL (4.20-5.60); RED CELL DISTRI WIDTH 14.4 % (11.5-15.5)
[2021-11-15 06:04] LABS: MAGNESIUM 2.2 mg/dL (1.6-2.3); POTASSIUM 4.4 mmol/l (3.5-5.1)
[2021-11-15 06:09] LABS: CREATININE 1.5 mg/dL (0.5-1.0)
--- NOTE | 2021-11-15 08:44 | NUR ---
PT LAYING IN BED. A&O X3. O2 VIA NC @2L IN PLACE; PT HOME O2 DEPENDENT. DIMINISHED BREATH SOUNDS HEARD UPON AUSCULTATION. ACTIVE BOWEL SOUNDS X4 QUADRANTS. #22G EMS SITE HEALTHY AND PATENT. ITALIAN LECTURER IN PLACE CURRENTLY READING ST WITH A RATE OF 114 BPM. ASSESSMENT COMPLETED. DISCUSSED POC. CALL LIGHT WITHIN REACH.
--- NOTE | 2021-11-15 11:33 | NUR ---
PT SITTING IN BED, BEAR HUGGER IN PLACE SET IN LOWEST SETTING PER PTS REQUEST. PER ED MONITORING HR SUSTAINING 130'S WITH A RHYTHM OF SINUS TACH. Chata HURTADO APRN NOTIFIED PRIOR TO THE ADMINISTRATION OF CARDIZEM IVP; PER METALIZING MACHINE OPERATOR MEDICATION OKAY TO BE ADMINISTERED. ED NOTIFIED. NEW IV #22G LH STARTED X1 ATTEMPT BY THIS MDM SR. IV HEALTHY AND PATENT. PT EDUCATED ON NEED OF CARDIZEM IV DUE TO ELEVATED HR; PT AGREEABLE. CARDIZEM 10 MG IVP ADMINISTERED OVER 2 MINS; HR SEEN ON VS MACHINE NOW 115; PER Rose PAVON RN PT NOW ST WITH A RATE OF 110 BPM. PT TOLERATED WELL. NO OTHER NEEDS AT THIS TIME. CALL LIGHT WITHIN REACH.
--- NOTE | 2021-11-15 16:00 | NUR ---
PT SLEEPING IN BED. NO DISTRESS NOTED. CALL LIGHT WITHIN REACH.
--- NOTE | 2021-11-15 20:00 | NUR ---
PATIENT RESTING IN BED AT THIS TIME-AWAKE ALERT AND ORIENTEDX3. O2 VIA NASAL CANNULA IN PLACE WITH AT 2LPM. PATIENT WITH DIMINISHED BS THROUGHOUT. NON-PRODUCTIVE COUGH-MEDICATED WITH ROBITUSSIN AC FOR COUGH. MEDICATED WITH FIOROCET 1 TAB FOR C/O HEADACHE. IVF NS PATENT AND INFUSING VIA LEFT HAND SITE AT 100CC/HR. TELE MONITOR IN PLACE WITH LAST READING ST-115. SAFETY PRECAUTIONS REINFORCED. CALL LIGHT IN REACH. WILL CONT TO MONITOR.
--- NOTE | 2021-11-15 21:49 | NUR ---
PATIENT SITTING UP ON THE SIDE OF THE BED AT THIS TIME-AWAKE ALERT AND HIGH ANXIETY AT THIS TIME. MEDICATED WITH XANAX 0.5MG PO FOR ANXIETY. O2 VIA NASAL CANNULA AT 2LPM IN PLACE. IVF NS PATENT AND INFUSING VIA LEFT HAND AT 100CC/HR. SITE REMAINS HEALTHY AT THIS TIME. TELE MONITOR IN PLACE. SAFETY PRECAUTIONS REINFORCED. CALL LIGHT IN REACH. WILL CONT TO MONITOR.
--- NOTE | 2021-11-15 22:29 | NUR ---
0-PATIENT IS HAVING SEVERE COUGHING EPISODE. RECEIVED CALL FROM ER THAT HR IS ELEVATED IN THE 130'S AGAIN. BP-180/76 WITH HR-136. PATIENT MEDICATED WITH CARDIZEM 10MG SLOW IVP VIA LEFT HAND SITE. SITE IS HEALTHY WITH GOOD BLOOD RETURN. PATIENT IS NOW STARTING TO CALM DOWN. 0-BP IS NOW 146/62, HR-113. O2 VIA NASAL CANNULA 2LPM. RESTING IN BED AT THIS TIME. WILL CONT TO MONITOR,
[2021-11-16] VITALS: BP 156/77
[2021-11-16 04:00] VITALS: BP 114/63
--- NOTE | 2021-11-16 04:13 | NUR ---
PATIENT CALLED FOR RESP TREATMENT-RT CALLED AND PATIENT RECIEVED RESP TREATMENT PER ORDERED. IVF PATENT AND INFUSING VIA LEFT HAND IV SITE AT 100CC/HR. TELE MONITOR IN PLACE. CALL LIGHT IN REACH. WILL CONT TO MONITOR.
[2021-11-16 05:43] LABS: MEAN CORPUSCULAR HGB 26.1 pG CALC (26.0-32.0); MEAN CORPUSCULAR HGB CONC 30.4 g/dL CAL (32.0-36.0); RED BLOOD COUNT 3.64 mill/uL (4.20-5.60); RED CELL DISTRI WIDTH 14.7 % (11.5-15.5)
[2021-11-16 05:55] LABS: HEMATOCRIT 31.3 % (37.0-47.0); HEMOGLOBIN 9.5 g/dl (12.0-16.0)
[2021-11-16 06:20] LABS: CREATININE 1.3 mg/dL (0.5-1.0)
--- NOTE | 2021-11-16 07:00 | NUR ---
RECIEVED REPORT FROM KIMBERLEE GAMBINO
[2021-11-16 08:45] VITALS: BP 113/67
--- NOTE | 2021-11-16 08:45 | NUR ---
PT RESTING IN SEMI FOWLERS POSITION. PT IS A/O X3. ASSESSMENT AND VITALS COMPLETED. BP 113/67, HR 96, O2 100% ON 3L NC. PT HOME DEPENEDENT ON 2L NC AT HOME. RESPIRATIONS ARE SHALLOW. LUNG SOUNDS DIMINISHED. HEART RHYTHM NORMAL WITH TELE IN PLACE. BOWEL SOUNDS ARE ACTIVE. #22G LH INFUSING WITH IVF PER ORDER, SITE REMAINS HEALTHY AND PATENT. SKIN INTACT. PT DENIES OF ANY PAINS OR DISCOMFORTS AT THIS TIME. ALL SAFETY PRECAUTIONS ARE IN PLACE WITH CALL LIGTH IN REACH. WILL CONTINUE TO MONITOR.
[2021-11-16 10:54] VITALS: BP 117/70
--- NOTE | 2021-11-16 11:45 | NUR ---
DR ROCA AND SUSAN,ANRP AT BEDSIDE
--- NOTE | 2021-11-16 12:12 | NUR ---
S- Pt cooperative with treatment 0- Pt resting in bed with nursing completing am meds. She performed LE AROM ex in bed including hip IR/ER, heel slides, SAQ, ankle dorsiflexion 2x 10 reps. Sitting LAQ, marching 2 [id number].Pt required rest between each set of ex. Pt moved in bed and supine to sit was modified indep using bed rail. Sitting on edge of bed was indep static. Pt ambulated x 12' and 1 x 4' with CGA. Gait was slow with small steps and rest peroids required. BP 113/76 to 151/81, HR 103 to 105, 02 sats 99%. Transitional movement were slow with rest required. Time spent with pt 45 min A- modified indep [facility] E[facility] P- Will follow per POC.
--- NOTE | 2021-11-16 12:34 | NUR ---
PT RESTING IN SEMI FOWLERS POSITION. REPSRATIONS ARE EVEN AND UNLABORED ON 2L NC. TELE MONITORING IN PLACE. PT REQUEST XANAX AT THIS TIME, ADMINISERED.IV REMAINS PATENT. PT DENIES OF ANY PAINS OR DISCOMFORTS AT THSI TIME.ALL SAFETY PRECAUTIONS ARE IN PLACE WITH CALL LIGHT IN REACH. WILL CONTINUE TO FAVIAN
[2021-11-16 15:44] VITALS: BP 133/76
--- NOTE | 2021-11-16 16:20 | NUR ---
PT RESTING IN SEMI FOWLERS POSITION. RESPIRATIONS ARE EVEN AND UNLABORED ON 2L NC. #22G LH INFUSING WITH IVF PER ORDER, SITE REMAINS HEALTHY AND PATENT. TELE MONITORING IN PLACE. PT DENIES OF ANY PAINS OR DICOMFORTS AT THIS TIME. ALL SAFETY PRECAUTIONS ARE IN PLACE WITH CALL LIGHT IN REACH. WILL CONTINUE TO MONITOR
[2021-11-16 19:30] VITALS: BP 122/64
--- NOTE | 2021-11-16 20:06 | NUR ---
SITTING UP IN BED WITH O2 VIA NASAL CANNULA IN PLACE AT 2LPM. O2 SATS IS 99% AT THIS TIME. LUNGS ARE DIMINISHED THROUGHOUT,ALERT AND ORIENTEDX3. STATES THAT SHE WANTS TO GO TO REHAB-MAYBE TOMORROW. TELE MONITOR IN PLACE. IVF NS PATENT AND INFUSING VIA LEFT HAND SITE AT 100CC/HR. SITE REMAINS HEALTHY. SAFETY PRECAUTIONS REINFORCED. CALL LIGHT IN REACH. WILL CONT TO MONITOR.
[2021-11-17] VITALS: BP 111/65
--- NOTE | 2021-11-17 02:27 | NUR ---
PATIENT RESTING IN BED AT THIS TIME WITH EYES CLOSED AND O2 VIA NASAL CANNULA IN PLACE. RESPS ARE EVEN AND UNLABORED AT THIS TIME. IVF NS PATENT AND INFUSING VIA LEFT HAND SITE. TELE MONITOR IN PLACE. CALL LIGHT IN REACH. WILL CONT TO MONITOR.
[2021-11-17 04:00] VITALS: BP 103/58
--- NOTE | 2021-11-17 04:50 | NUR ---
RESTING IN BED WITH O2 VIA NASAL IN PLACE. LAST O2 SAT WAS 99% ON 2LPM. EYES ARE CLOSED AND RESPS ARE EVEN AND UNLABORED. TELE MONITOR IN PLACE WITH LAST READING BEING SR-74 WITH PVC'S. IVF NS PATENT AND INFUSING VIA LEFT HAND AT 100CC/HR. CALL LIGHT IN REACH. WILL CONT TO MONITOR.
--- NOTE | 2021-11-17 07:00 | NUR ---
RECIEVED REPORT FROM KIMBERLEE GAMBINO
[2021-11-17 07:56] VITALS: BP 158/70
--- NOTE | 2021-11-17 07:56 | NUR ---
PT RESTING IN SEMI FOWLERS POSITION. PT IS A/O X3.ASSESSMENT AND VITALS OBATINED. BP 158/70,HR 97,O2 98% ON 2L NC. PT HOME DEPENDENT. RESPIRATIONS ARE SHALLOW. LUNG SOUNDS DIMINISHED.NONPRODUCTIVE COUGH NOTED. BOWEL SOUNDS ACTIVE, PT REPORT BM LAST NIGHT. HEART RHYTHM NORMAL WITH TELE IN PLACE, ST PER ER MONITORING. #22H LH INFUSING IWTH IVF PER ORDER, SITE APPEARS HEALTHY AND PATENT. SKIN INTACT. PULSES STRONG.PT DENIES OF ANY PAINS OR DISCOMFORTS AT THIS TIME. ALL SAFTEY PRECAUTIONS ARE IN PLACE WITH CALL LIGHT IN REACH. WILL CONTINUE TO MONITOR
--- NOTE | 2021-11-17 09:39 | NUR ---
PHYSICAL THERAPY AT BEDSIDE
[2021-11-17 11:00] VITALS: BP 146/69
--- NOTE | 2021-11-17 11:27 | NUR ---
PT RESTING IN SEMI FOWLERS POSITION. RESPIRATIONS ARE SHALLOW ON 2L NC. #22G LH REMAINS INFUSING WITH IVF PER ORDER. TELE MONITORING IN PLACE. PT DENIES OF ANY PAINS OR DISCOMFORTS AT THIS TIME. ALL SAFTEY PRECAUTIONS ARE IN PLACE WITH NCALL LIGHT IN REACH. WILL CONTINUE TO MONITOR
--- NOTE | 2021-11-17 11:37 | NUR ---
COVID SWAB COMPLETED. PT TOLERATED WELL
[2021-11-17 11:43] LABS: ANION GAP 7 (6-22 (CALC)); BUN 16 mg/dL (8-23); BUN/CREATININE RATIO 18 (12-20 (CALC)); CARBON DIOXIDE 34 mmol/l (22-30); CHLORIDE 104 mmol/l (95-108); CREATININE 0.9 mg/dL (0.5-1.0); GFR > 60 ML/MIN (>=60 (CALC)); GFR FOR AFR.AMER. > 60 ML/MIN (>=60 (CALC)); POTASSIUM 3.7 mmol/l (3.5-5.1); SODIUM 142 mmol/l (137-146)
--- NOTE | 2021-11-17 12:27 | NUR ---
S- Pt reported feeling better. Awaiting rehab placement. 0- Pt resting in bed. AROM ex performed to BLEs in sitting and supine. She moved supine to sit with modified indep using bed rail. Static sitting balance was good. Transfer to chair with CGA and management of lines. gait 2 x 30' with CGA no assist device and min assist with lines. Her gait was slow but improved from last visit. BP 146/66 to 151/81, HR105 to 112, 02 sats 100 on 02. Time spent with pt 40 min A- [facility] unchanged ECF. P- Will follow per POC until D/C.
[2021-11-17] MEDS ORDERED: BIOTUSSIN PO (12:35)
[2021-11-17] MEDS ORDERED: CETIRIZINE10 MG PO (12:35)
[2021-11-17] MEDS ORDERED: FIORICET PO (12:35)
[2021-11-17] MEDS ORDERED: PREDNISONE20 MG PO (12:35)
[2021-11-17] MEDS ORDERED: XANAX0.5 MG PO (12:35)
--- NOTE | 2021-11-17 13:50 | NUR ---
PT EDUCATED ON DC INSTRUCTIONS AND NEW MEDITIOCAIONS. HOME MEDICATIONS GIVEN BACK TO PT. IV REMOEDVW ITH CATH STILL INTACT. TELE REMOVED, ER INFORMED. WAITING TRANSPORT
--- NOTE | 2021-11-17 14:26 | NUR ---
Discharge instructions given. Patient verbalizes understanding of same. Discharged in stable condition via [facility] with staff. All belongings sent with pt. PT DC TO [facility] IN STABLE CONDITION VIA FACILITY TRANSPORT IN STABLE CONDITION ON 2L NC. DC INSTUCTIONS AND PERSONAL BELONGINGS DC WITH PT. HOME MEDICATIONS IN PT POSESSION.
--- NOTE | 2021-11-17 14:29 | NUR ---
ATTEMPTED TO CALL REPORT TO [facility]. NO ANSWER X2
== END 2021-11-17 14:26 | DRG 191 ==
LOC: ED 11:05 → ED-I 12:00 → ED 12:00 → ED-I 13:50 → ED 14:17 → MS2 14:18
PROVIDERS: Family Medicine; Nurse Practitioner; ADMIT Hospitalist; ATTEND Hospitalist
DX: J44.1 Chronic obstructive pulmonary disease with (acute) exacerbation (principal); J96.12 Chronic respiratory failure with hypercapnia; J96.11 Chronic respiratory failure with hypoxia; I10 Essential (primary) hypertension; G40.909 Epilepsy, unspecified, not intractable, without status epilepticus; E78.5 Hyperlipidemia, unspecified; F32.A Depression, unspecified; F41.1 Generalized anxiety disorder; Z87.01 Personal history of pneumonia (recurrent); Z99.81 Dependence on supplemental oxygen; Z20.822 Contact with and (suspected) exposure to COVID-19
CPT/HCPCS: J1650

== ENCOUNTER 2021-12-07 13:27 | Observation (INO) | payer OTHER, MEDICAID ==
[~2021-12-07] VITALS: Ht 160 cm; Wt 52.0 kg
[~2021-12-07 13:27] MED LIST changes: +BIOTUSSIN PO; +CETIRIZINE10 MG PO; +FIORICET PO
[2021-12-07] MEDS ORDERED: LASIX20 MG PO (13:53)
[2021-12-07] MEDS ORDERED: COLACE100 MG PO (13:53)
[2021-12-07] MEDS ORDERED: DALIRESP500 MCG PO (13:54)
[2021-12-07] MEDS ORDERED: VOLTAREN1%GEL TOP (13:54)
[2021-12-07] MEDS ORDERED: NITROSTAT0.4 MG SL (13:54)
[2021-12-07] MEDS ORDERED: CARAFATE1 GM/10 ML PO (13:57)
[2021-12-07 14:01] VITALS: BP 121/74
[2021-12-07 14:31] LABS: HEMATOCRIT 35.4 % (37.0-47.0); HEMOGLOBIN 10.6 g/dl (12.0-16.0); IMMATURE GRANULOCYTES 0.5 % (0.0-5.0); MEAN CELL VOLUME 87.4 fL CALC (80.0-100.0); MEAN CORPUSCULAR HGB 26.2 pG CALC (26.0-32.0); MEAN CORPUSCULAR HGB CONC 29.9 g/dL CAL (32.0-36.0); NEUT# 4.52 thou/uL (2.00-7.15); RED BLOOD COUNT 4.05 mill/uL (4.20-5.60); RED CELL DISTRI WIDTH 14.6 % (11.5-15.5)
[2021-12-07] MEDS ORDERED: FAMOTIDINE20 M1 PO (14:47)
[2021-12-07] MEDS ORDERED: ALBUTEROL SUL0.083 % IN (14:49)
[2021-12-07] MEDS ORDERED: IPRATROPIU0.5 MG/3 M IN (14:50)
[2021-12-07] MEDS ORDERED: ZOLPIDEM5 M1 PO (14:51)
[2021-12-07] MEDS ORDERED: THEO-24200 MG PO (14:52)
[2021-12-07] MEDS ORDERED: FIORICET 50-3001 CAP PO (14:53)
[2021-12-07] MEDS ORDERED: XANAX0.5 MG PO (14:53)
[2021-12-07] MEDS ORDERED: ZOFRAN4 MG/TAB PO (14:54)
[2021-12-07] MEDS ORDERED: PROMETHAZINE HY25 M1 PO (14:55)
[2021-12-07 14:57] LABS: ALKALINE PHOSPHATASE 90 u/l (38-126); ANION GAP 9 (6-22 (CALC)); BILIRUBIN, TOTAL 0.4 mg/dL (0.0-1.4); BUN 6 mg/dL (8-23); BUN/CREATININE RATIO 11 (12-20 (CALC)); CARBON DIOXIDE 32 mmol/l (22-30); CHLORIDE 100 mmol/l (95-108); CREATININE 0.5 mg/dL (0.5-1.0); GFR > 60 ML/MIN (>=60 (CALC)); GFR FOR AFR.AMER. > 60 ML/MIN (>=60 (CALC)); POTASSIUM 3.5 mmol/l (3.5-5.1); SGOT/AST 25 u/l (9-36); SODIUM 137 mmol/l (137-146); TOTAL PROTEIN 7.7 g/dL (6.3-8.2)
[2021-12-07 15:30] VITALS: BP 136/68
[2021-12-07 16:37] LABS: URINE BILIRUBIN - DIPSTICK NEGATIVE (NEGATIVE); URINE BLOOD DIPSTICK TRACE-INTACT (NEGATIVE); URINE CLARITY CLEAR; URINE COLOR YELLOW; URINE GLUCOSE - DIPSTICK NEGATIVE (NEGATIVE); URINE KETONE NEGATIVE (NEGATIVE); URINE LEUK ESTERASE NEGATIVE (Negative); URINE NITRITE - DIPSTICK NEGATIVE (Negative); URINE PROTEIN - DIPSTICK NEGATIVE (NEG-TRACE); URINE UROBILINOGEN - DIPSTICK 0.2 E.U./dL (0.2)
[2021-12-08] VITALS: BP 119/70
[2021-12-08 04:00] VITALS: BP 115/75
[2021-12-08 05:53] LABS: HEMOGLOBIN 9.8 g/dl (12.0-16.0); MEAN CELL VOLUME 87.7 fL CALC (80.0-100.0); MEAN CORPUSCULAR HGB 26.8 pG CALC (26.0-32.0); MEAN CORPUSCULAR HGB CONC 30.6 g/dL CAL (32.0-36.0); RED BLOOD COUNT 3.65 mill/uL (4.20-5.60); RED CELL DISTRI WIDTH 14.8 % (11.5-15.5)
[2021-12-08 06:03] LABS: ANION GAP 9 (6-22 (CALC)); BUN 10 mg/dL (8-23); BUN/CREATININE RATIO 21 (12-20 (CALC)); CARBON DIOXIDE 28 mmol/l (22-30); CHLORIDE 105 mmol/l (95-108); CREATININE 0.5 mg/dL (0.5-1.0); GFR > 60 ML/MIN (>=60 (CALC)); GFR FOR AFR.AMER. > 60 ML/MIN (>=60 (CALC)); MAGNESIUM 1.9 mg/dL (1.6-2.3); SODIUM 137 mmol/l (137-146)
[2021-12-08 06:08] LABS: POTASSIUM 4.7 mmol/l (3.5-5.1)
[2021-12-08 07:30] VITALS: BP 118/72
[2021-12-08 11:11] VITALS: BP 125/66
[2021-12-08] MEDS ORDERED: ZOFRAN4 MG/TAB PO (14:18)
[2021-12-08] MEDS ORDERED: AMOX/K CLAV875 M1 PO (14:18)
== END 2021-12-08 15:05 | disposition home or self-care (01) | DRG 392 ==
LOC: MS2 13:27
PROVIDERS: Nurse Practitioner; ADMIT Hospitalist; ATTEND Hospitalist
DX: R11.2 Nausea with vomiting, unspecified (principal); J32.9 Chronic sinusitis, unspecified; I10 Essential (primary) hypertension; J44.9 Chronic obstructive pulmonary disease, unspecified; E78.5 Hyperlipidemia, unspecified; F41.1 Generalized anxiety disorder; F32.A Depression, unspecified; R00.0 Tachycardia, unspecified; F17.200 Nicotine dependence, unspecified, uncomplicated; Z87.01 Personal history of pneumonia (recurrent); Z60.2 Problems related to living alone; Z20.822 Contact with and (suspected) exposure to COVID-19
CPT/HCPCS: G0378; G0379

== ENCOUNTER 2022-01-05 03:33 | Observation (INO) | payer OTHER, MEDICAID ==
[~2022-01-05] VITALS: Ht 160 cm; Wt 51.0 kg
[~2022-01-05 03:33] MED LIST changes: +CARAFATE1 GM/10 ML PO; +FAMOTIDINE20 M1 PO; +FIORICET 50-3001 CAP PO; +LASIX20 MG PO; +NITROSTAT0.4 MG SL; +PROMETHAZINE HY25 M1 PO; +THEO-24200 MG PO; +VOLTAREN1%GEL TOP; +ZOLPIDEM5 M1 PO
[2022-01-05 03:39] VITALS: BP 149/78
--- NOTE | 2022-01-05 03:41 | NUR ---
PT ARRIVED VIA EMS FOR CHEST PAIN AND SOB 12 LEAD UNREMARKABLE MD UPDATED ON PT STATUS
[2022-01-05] MEDS ORDERED: TOPROL XL50 MG PO (03:50)
[2022-01-05] MEDS ORDERED: CIPROFLOXACN500 MG PO (03:52)
[2022-01-05] MEDS ORDERED: PREDNISONE50 MG PO (03:55)
[2022-01-05 04:00] VITALS: BP 131/76
[2022-01-05 04:02] LABS: HEMATOCRIT 37.7 % (37.0-47.0); HEMOGLOBIN 11.5 g/dl (12.0-16.0); IMMATURE GRANULOCYTES 3.9 % (0.0-5.0); MEAN CELL VOLUME 87.3 fL CALC (80.0-100.0); MEAN CORPUSCULAR HGB 26.6 pG CALC (26.0-32.0); MEAN CORPUSCULAR HGB CONC 30.5 g/dL CAL (32.0-36.0); NEUT# 12.37 thou/uL (2.00-7.15); RED BLOOD COUNT 4.32 mill/uL (4.20-5.60)
[2022-01-05 04:16] LABS: ALBUMIN 3.5 g/dL (3.2-5.0); ALKALINE PHOSPHATASE 55 u/l (38-126); BUN 29 mg/dL (8-23); BUN/CREATININE RATIO 58 (12-20 (CALC)); CHLORIDE 94 mmol/l (95-108); CREATININE 0.5 mg/dL (0.5-1.0); GFR > 60 ML/MIN (>=60 (CALC)); GFR FOR AFR.AMER. > 60 ML/MIN (>=60 (CALC)); LIPASE 149 u/l (23-300); SGOT/AST 29 u/l (9-36); SODIUM 137 mmol/l (137-146); TOTAL PROTEIN 6.4 g/dL (6.3-8.2)
[2022-01-05 04:17] LABS: ANION GAP 10 (6-22 (CALC)); BILIRUBIN, TOTAL 0.2 mg/dL (0.0-1.4); CARBON DIOXIDE 36 mmol/l (22-30); POTASSIUM 3.2 mmol/l (3.5-5.1)
[2022-01-05 04:18] LABS: ACT PARTIAL THROMBO TIME 22.5 SECONDS (20.0-32.5); PROTHROMBIN TIME 10.2 SECONDS (9.0-12.5)
[2022-01-05 04:30] VITALS: BP 115/61
--- NOTE | 2022-01-05 04:53 | NUR ---
Reassessment of patient completed. No distress noted.
[2022-01-05 05:00] VITALS: BP 143/74
--- NOTE | 2022-01-05 05:17 | NUR ---
PT TO BE ADMIT TO FLOOR REPORT CALLED
--- NOTE | 2022-01-05 05:31 | NUR ---
TRANSFERRED PT TO FLOOR WITHOUT INCIDENCE
[2022-01-05 06:04] VITALS: BP 125/75
--- NOTE | 2022-01-05 07:33 | NUR ---
Patient decides to leave AMA. Multiple attempts made to ecourage patient to remain here for continued treatment. Explained to patient all risks of leaving against medical advice including . Pt verbalized understanding of all risks. Pt also encouraged to return to [facility] at any time, especially if symptoms continue or become worse. Pt verbalized understanding.
== END 2022-01-05 07:50 | disposition left against medical advice (07) | DRG 313 ==
LOC: ED 03:33 → ED-I 04:46 → ED 05:08 → MS2 05:09
PROVIDERS: ADMIT Internal Medicine; ATTEND Internal Medicine
DX: R07.9 Chest pain, unspecified (principal); F41.9 Anxiety disorder, unspecified; J44.9 Chronic obstructive pulmonary disease, unspecified; G40.909 Epilepsy, unspecified, not intractable, without status epilepticus; Z20.822 Contact with and (suspected) exposure to COVID-19

== ENCOUNTER 2022-09-20 15:49 | Emergency (ER) | payer OTHER, MEDICAID ==
[~2022-09-20] VITALS: Ht 160 cm; Wt 54.4 kg
[~2022-09-20 15:49] MED LIST changes: +CIPROFLOXACN500 MG PO; +TOPROL XL50 MG PO
[2022-09-20 16:51] LABS: HEMOGLOBIN 11.7 g/dl (12.0-16.0); IMMATURE GRANULOCYTES 0.4 % (0.0-5.0); MEAN CELL VOLUME 88.8 fL CALC (80.0-100.0); MEAN CORPUSCULAR HGB 26.7 pG CALC (26.0-32.0); NEUT# 5.28 thou/uL (2.00-7.15); RED BLOOD COUNT 4.39 mill/uL (4.20-5.60); RED CELL DISTRI WIDTH 13.2 % (11.5-15.5)
[2022-09-20 17:07] LABS: ALBUMIN 3.9 g/dL (3.2-5.0); ALKALINE PHOSPHATASE 81 u/l (38-126); CARBON DIOXIDE 31 mmol/l (22-30); CHLORIDE 101 mmol/l (95-108); CREATININE 0.4 mg/dL (0.5-1.0); GFR FOR AFR.AMER. > 60 ML/MIN (>=60 (CALC)); GFR OTHER RACES > 60 ML/MIN (>=60 (CALC)); LIPASE 69 u/l (23-300); SGOT/AST 29 u/l (9-36); SODIUM 137 mmol/l (137-146); TOTAL PROTEIN 6.2 g/dL (6.3-8.2)
[2022-09-20 17:38] LABS: ANION GAP 9 (6-22 (CALC)); BILIRUBIN, TOTAL 0.4 mg/dL (0.0-1.4); BUN 9 mg/dL (8-23); BUN/CREATININE RATIO 23 (12-20 (CALC))
[2022-09-20 19:40] LABS: URINE BILIRUBIN - DIPSTICK NEGATIVE (NEGATIVE); URINE BLOOD DIPSTICK NEGATIVE (NEGATIVE); URINE COLOR YELLOW; URINE GLUCOSE - DIPSTICK NEGATIVE (NEGATIVE); URINE KETONE NEGATIVE (NEGATIVE); URINE LEUK ESTERASE NEGATIVE (NEGATIVE); URINE NITRITE - DIPSTICK NEGATIVE (Negative); URINE PH 6.5 (4.5-8.0); URINE PROTEIN - DIPSTICK NEGATIVE (NEG-TRACE); URINE UROBILINOGEN - DIPSTICK 0.2 E.U./dL (0.2)
[2022-09-20] MEDS ORDERED: ONDANSETRON4 MG PO (20:07)
[2022-09-20 20:12] VITALS: BP 131/65
== END 2022-09-20 20:39 | disposition home or self-care (01) | DRG 392 ==
LOC: ED 15:49
PROVIDERS: Nurse Practitioner
DX: K52.9 Noninfective gastroenteritis and colitis, unspecified (principal); J44.9 Chronic obstructive pulmonary disease, unspecified; I10 Essential (primary) hypertension; G40.909 Epilepsy, unspecified, not intractable, without status epilepticus; F41.9 Anxiety disorder, unspecified
CPT/HCPCS: Q9967

== ENCOUNTER 2022-09-22 13:22 | Emergency (ER) | payer OTHER, MEDICAID ==
[~2022-09-22] VITALS: Ht 160 cm; Wt 55.0 kg
[~2022-09-22 13:22] MED LIST changes: +ONDANSETRON4 MG PO
[2022-09-22 14:33] LABS: HEMATOCRIT 38.7 % (37.0-47.0); IMMATURE GRANULOCYTES 0.5 % (0.0-5.0); MEAN CELL VOLUME 86.8 fL CALC (80.0-100.0); MEAN CORPUSCULAR HGB 26.9 pG CALC (26.0-32.0); NEUT# 6.13 thou/uL (2.00-7.15); RED BLOOD COUNT 4.46 mill/uL (4.20-5.60); RED CELL DISTRI WIDTH 13.3 % (11.5-15.5)
[2022-09-22 14:50] LABS: ALBUMIN 4.1 g/dL (3.2-5.0); ALKALINE PHOSPHATASE 77 u/l (38-126); AMYLASE 82 u/l (30-110); ANION GAP 10 (6-22 (CALC)); BILIRUBIN, TOTAL 0.5 mg/dL (0.0-1.4); BUN 4 mg/dL (8-23); BUN/CREATININE RATIO 9 (12-20 (CALC)); CARBON DIOXIDE 28 mmol/l (22-30); CHLORIDE 103 mmol/l (95-108); CREATININE 0.4 mg/dL (0.5-1.0); GFR FOR AFR.AMER. > 60 ML/MIN (>=60 (CALC)); GFR OTHER RACES > 60 ML/MIN (>=60 (CALC)); LIPASE 60 u/l (23-300); SGOT/AST 27 u/l (9-36); SODIUM 137 mmol/l (137-146); TOTAL PROTEIN 6.5 g/dL (6.3-8.2)
[2022-09-22 16:56] LABS: URINE BILIRUBIN - DIPSTICK NEGATIVE (NEGATIVE); URINE BLOOD DIPSTICK TRACE-INTACT (NEGATIVE); URINE COLOR YELLOW; URINE GLUCOSE - DIPSTICK NEGATIVE (NEGATIVE); URINE KETONE 15 mg/dL (NEGATIVE); URINE LEUK ESTERASE NEGATIVE (NEGATIVE); URINE PROTEIN - DIPSTICK NEGATIVE (NEG-TRACE); URINE SPECIFIC GRAVITY <=1.005; URINE UROBILINOGEN - DIPSTICK 0.2 E.U./dL (0.2)
[2022-09-22 17:01] LABS: URINE NITRITE - DIPSTICK NEGATIVE (Negative)
[2022-09-22 17:45] VITALS: BP 115/67
[2022-09-22 18:00] VITALS: BP 115/83
[2022-09-22] MEDS ORDERED: LOMOTIL2.5 MG PO (18:13)
[2022-09-22] MEDS ORDERED: PHENERGAN25 MG RE (18:13)
[2022-09-22 18:15] VITALS: BP 133/68
[2022-09-22 18:29] VITALS: BP 133/68
== END 2022-09-22 18:51 | disposition home or self-care (01) | DRG 392 ==
LOC: ED 13:22
PROVIDERS: Nurse Practitioner
DX: K52.9 Noninfective gastroenteritis and colitis, unspecified (principal); I10 Essential (primary) hypertension; G40.909 Epilepsy, unspecified, not intractable, without status epilepticus; F41.9 Anxiety disorder, unspecified; J44.9 Chronic obstructive pulmonary disease, unspecified

== ENCOUNTER 2022-10-07 23:31 | Emergency (ER) | payer OTHER, MEDICAID ==
[~2022-10-07] VITALS: Ht 160 cm; Wt 56.9 kg
[~2022-10-07 23:31] MED LIST changes: +LOMOTIL2.5 MG PO; +PHENERGAN25 MG RE
[2022-10-07 23:35] VITALS: BP 155/79
[2022-10-07 23:45] VITALS: BP 141/78
[2022-10-08] VITALS: BP 158/73
[2022-10-08 00:03] LABS: HEMATOCRIT 38.2 % (37.0-47.0); IMMATURE GRANULOCYTES 0.2 % (0.0-5.0); MEAN CORPUSCULAR HGB CONC 31.4 g/dL CAL (32.0-36.0); NEUT# 4.46 thou/uL (2.00-7.15); RED BLOOD COUNT 4.44 mill/uL (4.20-5.60); RED CELL DISTRI WIDTH 13.3 % (11.5-15.5)
[2022-10-08 00:15] VITALS: BP 153/75
[2022-10-08 00:16] LABS: ALBUMIN 4.3 g/dL (3.2-5.0); ALKALINE PHOSPHATASE 84 u/l (38-126); ANION GAP 12 (6-22 (CALC)); BILIRUBIN, TOTAL 0.3 mg/dL (0.0-1.4); BUN 4 mg/dL (8-23); BUN/CREATININE RATIO 9 (12-20 (CALC)); CARBON DIOXIDE 30 mmol/l (22-30); CHLORIDE 96 mmol/l (95-108); CPK 36 u/l (30-165); CREATININE 0.5 mg/dL (0.5-1.0); GFR FOR AFR.AMER. > 60 ML/MIN (>=60 (CALC)); GFR OTHER RACES > 60 ML/MIN (>=60 (CALC)); MAGNESIUM 1.9 mg/dL (1.6-2.3); POTASSIUM 3.8 mmol/l (3.5-5.1); SGOT/AST 41 u/l (9-36); SODIUM 134 mmol/l (137-146); TOTAL PROTEIN 7.4 g/dL (6.3-8.2)
[2022-10-08 00:23] LABS: URINE BILIRUBIN - DIPSTICK NEGATIVE (NEGATIVE); URINE BLOOD DIPSTICK SMALL (NEGATIVE); URINE COLOR YELLOW; URINE GLUCOSE - DIPSTICK NEGATIVE (NEGATIVE); URINE KETONE TRACE mg/dL (NEGATIVE); URINE LEUK ESTERASE NEGATIVE (NEGATIVE); URINE NITRITE - DIPSTICK POSITIVE (Negative); URINE PH 7.5 (4.5-8.0); URINE PROTEIN - DIPSTICK NEGATIVE (NEG-TRACE); URINE UROBILINOGEN - DIPSTICK 0.2 E.U./dL (0.2)
[2022-10-08 00:24] LABS: MYOGLOBIN 16 ng/mL (0 - 62)
[2022-10-08 00:30] VITALS: BP 125/63
[2022-10-08 00:31] LABS: URINE BACTERIA FEW hpf; URINE SQUAMOUS EPITHELIAL CELL FEW EPI/hpf (0-FEW)
[2022-10-08] MEDS ORDERED: PAXLOVID PO (00:44)
[2022-10-08 00:46] VITALS: BP 107/77
[2022-10-08 00:50] VITALS: BP 107/77
--- NOTE | 2022-10-09 09:44 | NUR ---
PRELIMINARY CULTURE RESULTS CALLED TO , 3/4 BLOOD CULTURE VIALS GROWING GRAM (+) COCCI. PATIENT DID NOT ANSWER PHONE AT 0930, WILL RECALL AT LATER TIME.
--- NOTE | 2022-10-10 12:41 | NUR ---
Contacted pt due to 3/4 blood culture bottles growing Staph epidermidis per Dr Zayas's request. Pt states she is starting to feel better. Last fever was yesterday morning of only 100 degrees. Advised pt to report to ED if she worsens, including shortness of breath. Blood cultures most likely contaminated as pt is improving.
== END 2022-10-08 01:02 | disposition home or self-care (01) | DRG 179 ==
LOC: ED 23:31
PROVIDERS: Family Medicine
DX: U07.1 COVID-19 (principal)
CPT/HCPCS: S0164

== ENCOUNTER 2023-03-08 16:13 | Emergency (ER) | payer MEDICARE, MEDICAID ==
[2023-03-08] VITALS (40 sets, daily range): BP systolic 85–147; BP diastolic 35–95
[~2023-03-08] VITALS: Ht 160 cm; Wt 55.3 kg
[~2023-03-08 16:13] MED LIST changes: +PAXLOVID PO
[2023-03-08 16:58] LABS: BASO% 0.1 % (0-3); EOS% 0.1 % (0-8); HEMATOCRIT 38.7 % (37.0-47.0); HEMOGLOBIN 12.1 g/dl (12.0-16.0); IMMATURE GRANULOCYTES 0.2 % (0.0-5.0); LYMPH% 12.1 % (15-41); MEAN CORPUSCULAR HGB 26.9 pG CALC (26.0-32.0); MEAN CORPUSCULAR HGB CONC 31.3 g/dL CAL (32.0-36.0); MONO% 5.9 % (2-13); NEUT# 11.69 thou/uL (2.00-7.15); NEUT% 81.6 % (42-76); RED BLOOD COUNT 4.5 mill/uL (4.20-5.60); RED CELL DISTRI WIDTH 13.3 % (11.5-15.5)
[2023-03-08 17:16] LABS: ALBUMIN 4.5 g/dL (3.2-5.0); ALKALINE PHOSPHATASE 90 u/l (38-126); ANION GAP 11 (6-22 (CALC)); BUN 7 mg/dL (8-23); BUN/CREATININE RATIO 14 (12-20 (CALC)); CARBON DIOXIDE 31 mmol/l (22-30); CHLORIDE 96 mmol/l (95-108); CREATININE 0.5 mg/dL (0.5-1.0); GFR FOR AFR.AMER. > 60 ML/MIN (>=60 (CALC)); GFR OTHER RACES > 60 ML/MIN (>=60 (CALC)); LIPASE 53 u/l (23-300); POTASSIUM 3.9 mmol/l (3.5-5.1); SGOT/AST 48 u/l (9-36); SODIUM 135 mmol/l (137-146)
[2023-03-08 17:19] LABS: BILIRUBIN, TOTAL 0.5 mg/dL (0.02-1.3); TOTAL PROTEIN 7.6 g/dL (6.3-8.2)
[2023-03-08 19:58] LABS: URINE BILIRUBIN - DIPSTICK NEGATIVE (NEGATIVE); URINE BLOOD DIPSTICK SMALL (NEGATIVE); URINE COLOR YELLOW; URINE GLUCOSE - DIPSTICK NEGATIVE (NEGATIVE); URINE KETONE TRACE mg/dL (NEGATIVE); URINE LEUK ESTERASE NEGATIVE (NEGATIVE); URINE PROTEIN - DIPSTICK NEGATIVE (NEG-TRACE); URINE SPECIFIC GRAVITY <=1.005; URINE UROBILINOGEN - DIPSTICK 0.2 E.U./dL (0.2)
[2023-03-08 19:59] LABS: URINE NITRITE - DIPSTICK NEGATIVE (Negative)
[2023-03-08 20:06] LABS: URINE RBC 0-2 RBC/hpf (0-5)
[2023-03-08] MEDS ORDERED: DICYCLOMINE10 MG PO (20:19)
== END 2023-03-08 20:55 | disposition home or self-care (01) ==
LOC: ED 16:13
PROVIDERS: Family Medicine
DX: R10.31 Right lower quadrant pain (principal); R11.0 Nausea; I10 Essential (primary) hypertension; J44.9 Chronic obstructive pulmonary disease, unspecified; F41.9 Anxiety disorder, unspecified; G40.909 Epilepsy, unspecified, not intractable, without status epilepticus; Z87.19 Personal history of other diseases of the digestive system
CPT/HCPCS: Q9967

== ENCOUNTER 2023-06-18 10:33 | Inpatient (IN) | payer MEDICARE, MEDICAID ==
[~2023-06-18] VITALS: Ht 160 cm; Wt 53.0 kg
[2023-06-18] VITALS (14 sets, daily range): BP systolic 110–161; BP diastolic 62–106
[~2023-06-18 10:33] MED LIST changes: +DICYCLOMINE10 MG PO
[2023-06-18 11:16] LABS: BASO% 0.4 % (0-3); EOS% 2.5 % (0-8); HEMATOCRIT 37.4 % (37.0-47.0); HEMOGLOBIN 11.8 g/dl (12.0-16.0); IMMATURE GRANULOCYTES 0.1 % (0.0-5.0); LYMPH% 22.5 % (15-41); MEAN CELL VOLUME 87.4 fL CALC (80.0-100.0); MEAN CORPUSCULAR HGB 27.6 pG CALC (26.0-32.0); MEAN CORPUSCULAR HGB CONC 31.6 g/dL CAL (32.0-36.0); MONO% 5.9 % (2-13); NEUT# 5.84 thou/uL (2.00-7.15); NEUT% 68.6 % (42-76); RED BLOOD COUNT 4.28 mill/uL (4.20-5.60)
[2023-06-18 11:28] LABS: ALBUMIN 4.3 g/dL (3.2-5.0); ALKALINE PHOSPHATASE 94 u/l (38-126); ANION GAP 11 (6-22 (CALC)); BILIRUBIN, TOTAL 0.4 mg/dL (0.02-1.3); BUN 10 mg/dL (8-23); BUN/CREATININE RATIO 24 (12-20 (CALC)); CARBON DIOXIDE 32 mmol/l (22-30); CHLORIDE 97 mmol/l (95-108); CREATININE 0.4 mg/dL (0.5-1.0); GFR FOR AFR.AMER. > 60 ML/MIN (>=60 (CALC)); GFR OTHER RACES > 60 ML/MIN (>=60 (CALC)); POTASSIUM 3.7 mmol/l (3.5-5.1); SGOT/AST 27 u/l (9-36); SODIUM 136 mmol/l (137-146); TOTAL PROTEIN 7.4 g/dL (6.3-8.2)
[2023-06-18] MEDS ORDERED: MUCUS RELIEF600 MG (12:32)
[2023-06-18] MEDS ORDERED: FORMOTEROL FUM (12:32)
[2023-06-18] MEDS ORDERED: BUDESONID2 IN (12:32)
[2023-06-18] MEDS ORDERED: CARAFATE1 GM/10 ML PO (12:34)
[2023-06-18] MEDS ORDERED: PROMETHAZINE HY25 M1 (12:35)
[2023-06-19] VITALS (7 sets, daily range): BP systolic 108–140; BP diastolic 52–73
[2023-06-19 05:11] LABS: BASO% 0.1 % (0-3); HEMATOCRIT 34.3 % (37.0-47.0); HEMOGLOBIN 10.6 g/dl (12.0-16.0); IMMATURE GRANULOCYTES 0.4 % (0.0-5.0); LYMPH% 7.2 % (15-41); MEAN CELL VOLUME 88.2 fL CALC (80.0-100.0); MEAN CORPUSCULAR HGB 27.2 pG CALC (26.0-32.0); MEAN CORPUSCULAR HGB CONC 30.9 g/dL CAL (32.0-36.0); MONO% 1.6 % (2-13); NEUT# 7.39 thou/uL (2.00-7.15); NEUT% 90.7 % (42-76); RED BLOOD COUNT 3.89 mill/uL (4.20-5.60); RED CELL DISTRI WIDTH 13.1 % (11.5-15.5)
[2023-06-19 05:26] LABS: ALBUMIN 3.8 g/dL (3.2-5.0); ALKALINE PHOSPHATASE 78 u/l (38-126); BUN 17 mg/dL (8-23); BUN/CREATININE RATIO 30 (12-20 (CALC)); CARBON DIOXIDE 30 mmol/l (22-30); CHLORIDE 100 mmol/l (95-108); CREATININE 0.6 mg/dL (0.5-1.0); GFR FOR AFR.AMER. > 60 ML/MIN (>=60 (CALC)); GFR OTHER RACES > 60 ML/MIN (>=60 (CALC)); SGOT/AST 23 u/l (9-36); SODIUM 134 mmol/l (137-146); TOTAL PROTEIN 6.6 g/dL (6.3-8.2)
[2023-06-19 05:27] LABS: ANION GAP 9 (6-22 (CALC)); POTASSIUM 4.5 mmol/l (3.5-5.1)
[2023-06-20] VITALS (8 sets, daily range): BP systolic 119–158; BP diastolic 61–78
[2023-06-20 05:47] LABS: BASO% 0.1 % (0-3); HEMOGLOBIN 10.4 g/dl (12.0-16.0); IMMATURE GRANULOCYTES 0.2 % (0.0-5.0); LYMPH% 4.9 % (15-41); MEAN CELL VOLUME 88.8 fL CALC (80.0-100.0); MEAN CORPUSCULAR HGB 27.2 pG CALC (26.0-32.0); MEAN CORPUSCULAR HGB CONC 30.6 g/dL CAL (32.0-36.0); MONO% 1.4 % (2-13); NEUT# 12.33 thou/uL (2.00-7.15); NEUT% 93.4 % (42-76); RED BLOOD COUNT 3.83 mill/uL (4.20-5.60); RED CELL DISTRI WIDTH 13.2 % (11.5-15.5)
[2023-06-20 06:02] LABS: ALBUMIN 3.5 g/dL (3.2-5.0); ALKALINE PHOSPHATASE 80 u/l (38-126); ANION GAP 6 (6-22 (CALC)); BUN 10 mg/dL (8-23); BUN/CREATININE RATIO 22 (12-20 (CALC)); CARBON DIOXIDE 35 mmol/l (22-30); CHLORIDE 98 mmol/l (95-108); CREATININE 0.4 mg/dL (0.5-1.0); GFR FOR AFR.AMER. > 60 ML/MIN (>=60 (CALC)); GFR OTHER RACES > 60 ML/MIN (>=60 (CALC)); MAGNESIUM 2.2 mg/dL (1.6-2.3); POTASSIUM 3.7 mmol/l (3.5-5.1); SGOT/AST 25 u/l (9-36); SODIUM 136 mmol/l (137-146); TOTAL PROTEIN 6.3 g/dL (6.3-8.2)
[2023-06-20 06:03] LABS: BILIRUBIN, TOTAL 0.1 mg/dL (0.02-1.3)
[2023-06-21 04:47] VITALS: BP 142/76
[2023-06-21 05:46] LABS: HEMATOCRIT 35.2 % (37.0-47.0); HEMOGLOBIN 10.5 g/dl (12.0-16.0); LYMPH% 7.5 % (15-41); MEAN CELL VOLUME 89.3 fL CALC (80.0-100.0); MEAN CORPUSCULAR HGB 26.6 pG CALC (26.0-32.0); MEAN CORPUSCULAR HGB CONC 29.8 g/dL CAL (32.0-36.0); MONO% 3.2 % (2-13); NEUT# 8.31 thou/uL (2.00-7.15); NEUT% 88.3 % (42-76); RED BLOOD COUNT 3.94 mill/uL (4.20-5.60); RED CELL DISTRI WIDTH 13.1 % (11.5-15.5)
[2023-06-21 05:57] LABS: ALBUMIN 3.4 g/dL (3.2-5.0); ALKALINE PHOSPHATASE 69 u/l (38-126); ANION GAP 7 (6-22 (CALC)); BILIRUBIN, TOTAL 0.1 mg/dL (0.02-1.3); BUN 12 mg/dL (8-23); BUN/CREATININE RATIO 33 (12-20 (CALC)); CARBON DIOXIDE 35 mmol/l (22-30); CHLORIDE 98 mmol/l (95-108); CREATININE 0.4 mg/dL (0.5-1.0); GFR FOR AFR.AMER. > 60 ML/MIN (>=60 (CALC)); GFR OTHER RACES > 60 ML/MIN (>=60 (CALC)); MAGNESIUM 2.2 mg/dL (1.6-2.3); POTASSIUM 4.2 mmol/l (3.5-5.1); SGOT/AST 26 u/l (9-36); SODIUM 136 mmol/l (137-146); TOTAL PROTEIN 5.7 g/dL (6.3-8.2)
[2023-06-21 06:35] VITALS: BP 157/85
[2023-06-21 08:28] VITALS: BP 179/87
[2023-06-21 11:55] VITALS: BP 137/74
[2023-06-21 19:10] VITALS: BP 101/79
[2023-06-22 00:41] VITALS: BP 155/83
[2023-06-22 00:59] VITALS: BP 155/83
[2023-06-22 04:14] VITALS: BP 149/76
[2023-06-22 04:33] VITALS: BP 149/76
[2023-06-22 05:55] LABS: BASO% 0.1 % (0-3); HEMATOCRIT 35.9 % (37.0-47.0); HEMOGLOBIN 11.1 g/dl (12.0-16.0); IMMATURE GRANULOCYTES 1.1 % (0.0-5.0); MEAN CELL VOLUME 89.5 fL CALC (80.0-100.0); MEAN CORPUSCULAR HGB 27.7 pG CALC (26.0-32.0); MEAN CORPUSCULAR HGB CONC 30.9 g/dL CAL (32.0-36.0); MONO% 4.7 % (2-13); NEUT# 7.49 thou/uL (2.00-7.15); NEUT% 85.1 % (42-76); RED BLOOD COUNT 4.01 mill/uL (4.20-5.60); RED CELL DISTRI WIDTH 12.9 % (11.5-15.5)
[2023-06-22 06:28] LABS: ALBUMIN 3.5 g/dL (3.2-5.0); ALKALINE PHOSPHATASE 71 u/l (38-126); ANION GAP 6 (6-22 (CALC)); BUN 14 mg/dL (8-23); BUN/CREATININE RATIO 35 (12-20 (CALC)); CARBON DIOXIDE 39 mmol/l (22-30); CHLORIDE 94 mmol/l (95-108); CREATININE 0.4 mg/dL (0.5-1.0); GFR FOR AFR.AMER. > 60 ML/MIN (>=60 (CALC)); GFR OTHER RACES > 60 ML/MIN (>=60 (CALC)); MAGNESIUM 2.3 mg/dL (1.6-2.3); POTASSIUM 4.3 mmol/l (3.5-5.1); SGOT/AST 28 u/l (9-36); SODIUM 134 mmol/l (137-146); TOTAL PROTEIN 6.2 g/dL (6.3-8.2)
[2023-06-22 06:59] VITALS: BP 145/81
[2023-06-22 09:47] VITALS: BP 145/81
[2023-06-22] MEDS ORDERED: PREDNISONE10 MG PO (13:49)
[2023-06-22] MEDS ORDERED: OMNICEF300 MG PO (13:50)
== END 2023-06-22 14:58 | disposition home or self-care (01) | DRG 191 ==
LOC: ED 10:33 → ED-I 12:00 → ED 12:31 → MS2 12:32
PROVIDERS: Family Medicine; Nurse Practitioner Family; ADMIT Internal Medicine; ATTEND Internal Medicine
DX: J44.1 Chronic obstructive pulmonary disease with (acute) exacerbation (principal); J96.11 Chronic respiratory failure with hypoxia; J96.12 Chronic respiratory failure with hypercapnia; I10 Essential (primary) hypertension; E78.5 Hyperlipidemia, unspecified; G40.909 Epilepsy, unspecified, not intractable, without status epilepticus; F41.1 Generalized anxiety disorder; F32.A Depression, unspecified; G25.0 Essential tremor; Z99.81 Dependence on supplemental oxygen; Z87.19 Personal history of other diseases of the digestive system; Z20.822 Contact with and (suspected) exposure to COVID-19
CPT/HCPCS: J1650

== ENCOUNTER 2023-06-29 14:11 | Inpatient (IN) | payer MEDICARE, MEDICAID ==
[2023-06-29] VITALS (12 sets, daily range): BP systolic 109–186; BP diastolic 59–129
[~2023-06-29] VITALS: Ht 160 cm; Wt 52.6 kg
[~2023-06-29 14:11] MED LIST changes: +BUDESONID2 IN; +FORMOTEROL FUM; +MUCUS RELIEF600 MG; +OMNICEF300 MG PO; +PROMETHAZINE HY25 M1
[2023-06-29 15:42] LABS: BASO% 0.2 % (0-3); EOS% 1.2 % (0-8); HEMOGLOBIN 12.4 g/dl (12.0-16.0); IMMATURE GRANULOCYTES 0.7 % (0.0-5.0); MEAN CELL VOLUME 89.3 fL CALC (80.0-100.0); MEAN CORPUSCULAR HGB 27.7 pG CALC (26.0-32.0); NEUT# 8.71 thou/uL (2.00-7.15); NEUT% 80.9 % (42-76); RED BLOOD COUNT 4.48 mill/uL (4.20-5.60); RED CELL DISTRI WIDTH 13.4 % (11.5-15.5)
[2023-06-29 15:51] LABS: ALBUMIN 4.1 g/dL (3.2-5.0); ALKALINE PHOSPHATASE 80 u/l (38-126); ANION GAP 9 (6-22 (CALC)); BUN 13 mg/dL (8-23); BUN/CREATININE RATIO 28 (12-20 (CALC)); CARBON DIOXIDE 36 mmol/l (22-30); CHLORIDE 90 mmol/l (95-108); CREATININE 0.5 mg/dL (0.5-1.0); GFR FOR AFR.AMER. > 60 ML/MIN (>=60 (CALC)); GFR OTHER RACES > 60 ML/MIN (>=60 (CALC)); POTASSIUM 4.1 mmol/l (3.5-5.1); SGOT/AST 37 u/l (9-36); SODIUM 131 mmol/l (137-146); TOTAL PROTEIN 7.1 g/dL (6.3-8.2)
[2023-06-29 15:52] LABS: BILIRUBIN, TOTAL 0.3 mg/dL (0.02-1.3)
[2023-06-29 18:15] LABS: URINE BILIRUBIN - DIPSTICK Negative (NEGATIVE); URINE BLOOD DIPSTICK Negative (NEGATIVE); URINE COLOR Yellow; URINE GLUCOSE - DIPSTICK Negative (NEGATIVE); URINE KETONE Negative (NEGATIVE); URINE LEUK ESTERASE Negative (NEGATIVE); URINE NITRITE - DIPSTICK Negative (Negative); URINE PROTEIN - DIPSTICK Negative (NEG-TRACE); URINE UROBILINOGEN - DIPSTICK 0.2 E.U./dL (0.2)
[2023-06-30] VITALS (8 sets, daily range): BP systolic 127–162; BP diastolic 73–86
[2023-06-30 05:19] LABS: BASO% 0.1 % (0-3); HEMATOCRIT 38.5 % (37.0-47.0); HEMOGLOBIN 11.9 g/dl (12.0-16.0); IMMATURE GRANULOCYTES 1.3 % (0.0-5.0); LYMPH% 5.1 % (15-41); MEAN CELL VOLUME 91.4 fL CALC (80.0-100.0); MEAN CORPUSCULAR HGB 28.3 pG CALC (26.0-32.0); MEAN CORPUSCULAR HGB CONC 30.9 g/dL CAL (32.0-36.0); MONO% 3.5 % (2-13); NEUT# 8.29 thou/uL (2.00-7.15); RED BLOOD COUNT 4.21 mill/uL (4.20-5.60); RED CELL DISTRI WIDTH 13.5 % (11.5-15.5)
[2023-06-30 05:35] LABS: ALBUMIN 3.8 g/dL (3.2-5.0); ALKALINE PHOSPHATASE 81 u/l (38-126); ANION GAP 8 (6-22 (CALC)); BILIRUBIN, TOTAL 0.3 mg/dL (0.02-1.3); BUN 19 mg/dL (8-23); BUN/CREATININE RATIO 38 (12-20 (CALC)); CARBON DIOXIDE 35 mmol/l (22-30); CHLORIDE 95 mmol/l (95-108); CREATININE 0.5 mg/dL (0.5-1.0); GFR FOR AFR.AMER. > 60 ML/MIN (>=60 (CALC)); GFR OTHER RACES > 60 ML/MIN (>=60 (CALC)); MAGNESIUM 2.1 mg/dL (1.6-2.3); SGOT/AST 30 u/l (9-36); SODIUM 133 mmol/l (137-146); TOTAL PROTEIN 6.9 g/dL (6.3-8.2)
[2023-07-01] VITALS (7 sets, daily range): BP systolic 116–150; BP diastolic 51–75
[2023-07-01 08:36] LABS: HEMATOCRIT 40.5 % (37.0-47.0); HEMOGLOBIN 12.2 g/dl (12.0-16.0); MEAN CELL VOLUME 92.9 fL CALC (80.0-100.0); MEAN CORPUSCULAR HGB CONC 30.1 g/dL CAL (32.0-36.0); RED BLOOD COUNT 4.36 mill/uL (4.20-5.60); RED CELL DISTRI WIDTH 13.8 % (11.5-15.5)
[2023-07-01 08:51] LABS: ALBUMIN 3.8 g/dL (3.2-5.0); ALKALINE PHOSPHATASE 84 u/l (38-126); ANION GAP 10 (6-22 (CALC)); BILIRUBIN, TOTAL 0.4 mg/dL (0.02-1.3); BUN 16 mg/dL (8-23); BUN/CREATININE RATIO 49 (12-20 (CALC)); CARBON DIOXIDE 33 mmol/l (22-30); CHLORIDE 95 mmol/l (95-108); CREATININE 0.3 mg/dL (0.5-1.0); GFR FOR AFR.AMER. > 60 ML/MIN (>=60 (CALC)); GFR OTHER RACES > 60 ML/MIN (>=60 (CALC)); POTASSIUM 4.5 mmol/l (3.5-5.1); SGOT/AST 31 u/l (9-36); SODIUM 133 mmol/l (137-146); TOTAL PROTEIN 6.5 g/dL (6.3-8.2)
[2023-07-02] VITALS (8 sets, daily range): BP systolic 129–158; BP diastolic 69–95
[2023-07-02 09:01] LABS: HEMATOCRIT 42.6 % (37.0-47.0); HEMOGLOBIN 12.8 g/dl (12.0-16.0); MEAN CELL VOLUME 92.4 fL CALC (80.0-100.0); MEAN CORPUSCULAR HGB 27.8 pG CALC (26.0-32.0); RED BLOOD COUNT 4.61 mill/uL (4.20-5.60); RED CELL DISTRI WIDTH 13.6 % (11.5-15.5)
[2023-07-02 09:31] LABS: ALBUMIN 3.8 g/dL (3.2-5.0); ALKALINE PHOSPHATASE 81 u/l (38-126); ANION GAP 10 (6-22 (CALC)); BUN 20 mg/dL (8-23); BUN/CREATININE RATIO 50 (12-20 (CALC)); CARBON DIOXIDE 35 mmol/l (22-30); CHLORIDE 91 mmol/l (95-108); CREATININE 0.4 mg/dL (0.5-1.0); GFR FOR AFR.AMER. > 60 ML/MIN (>=60 (CALC)); GFR OTHER RACES > 60 ML/MIN (>=60 (CALC)); MAGNESIUM 2.2 mg/dL (1.6-2.3); POTASSIUM 4.1 mmol/l (3.5-5.1); SGOT/AST 40 u/l (9-36); SODIUM 132 mmol/l (137-146); TOTAL PROTEIN 6.8 g/dL (6.3-8.2)
[2023-07-02 09:51] LABS: BILIRUBIN, TOTAL 0.2 mg/dL (0.02-1.3)
[2023-07-03] VITALS: BP 152/86
[2023-07-03 03:52] VITALS: BP 122/73
[2023-07-03 06:54] VITALS: BP 157/75
[2023-07-03 10:45] VITALS: BP 151/88
[2023-07-03] MEDS ORDERED: IPRATROPIU0.5 MG/3 M IN (12:31)
[2023-07-03] MEDS ORDERED: PREDNISONE10 MG PO (12:32)
== END 2023-07-03 13:52 | disposition home or self-care (01) | DRG 190 ==
LOC: ED 14:11 → ED-I 15:10 → ED 16:14 → MS2 16:15
PROVIDERS: Nurse Practitioner; Nurse Practitioner Family; ADMIT Student in an Organized Health Care Education/Training Program; ATTEND Student in an Organized Health Care Education/Training Program
PROC: 5A09357 Assistance with Respiratory Ventilation, Less than 24 Consecutive Hours, Continuous Positive Airway Pressure (ICD-10-PCS; principal; 2023-07-01)
DX: J44.1 Chronic obstructive pulmonary disease with (acute) exacerbation (principal); J96.21 Acute and chronic respiratory failure with hypoxia; J96.22 Acute and chronic respiratory failure with hypercapnia; I10 Essential (primary) hypertension; G40.909 Epilepsy, unspecified, not intractable, without status epilepticus; E78.5 Hyperlipidemia, unspecified; F32.A Depression, unspecified; F41.1 Generalized anxiety disorder; T48.996A Underdosing of other agents primarily acting on the respiratory system, initial encounter; Z91.128 Patient's intentional underdosing of medication regimen for other reason; Z99.81 Dependence on supplemental oxygen; Z87.01 Personal history of pneumonia (recurrent); Z20.822 Contact with and (suspected) exposure to COVID-19
CPT/HCPCS: J1650

== ENCOUNTER 2023-09-22 13:55 | Observation (INO) | payer MEDICARE, MEDICAID ==
[2023-09-22] VITALS (12 sets, daily range): BP systolic 129–165; BP diastolic 72–96
[~2023-09-22] VITALS: Ht 160 cm; Wt 52.0 kg
[2023-09-22 14:37] LABS: BASO% 0.6 % (0-3); EOS% 0.4 % (0-8); HEMATOCRIT 38.4 % (37.0-47.0); HEMOGLOBIN 11.5 g/dl (12.0-16.0); IMMATURE GRANULOCYTES 0.3 % (0.0-5.0); LYMPH% 8.1 % (15-41); MEAN CELL VOLUME 90.4 fL CALC (80.0-100.0); MEAN CORPUSCULAR HGB 27.1 pG CALC (26.0-32.0); MEAN CORPUSCULAR HGB CONC 29.9 g/dL CAL (32.0-36.0); MONO% 2.1 % (2-13); NEUT# 8.02 thou/uL (2.00-7.15); NEUT% 88.5 % (42-76); RED BLOOD COUNT 4.25 mill/uL (4.20-5.60); RED CELL DISTRI WIDTH 13.3 % (11.5-15.5)
[2023-09-22 14:56] LABS: ALBUMIN 4.4 g/dL (3.2-5.0); ALKALINE PHOSPHATASE 71 u/l (38-126); ANION GAP 10 (6-22 (CALC)); BUN 11 mg/dL (8-23); BUN/CREATININE RATIO 25 (12-20 (CALC)); CARBON DIOXIDE 32 mmol/l (22-30); CHLORIDE 97 mmol/l (95-108); CREATININE 0.5 mg/dL (0.5-1.0); GFR FOR AFR.AMER. > 60 ML/MIN (>=60 (CALC)); GFR OTHER RACES > 60 ML/MIN (>=60 (CALC)); POTASSIUM 4.9 mmol/l (3.5-5.1); SGOT/AST 31 u/l (9-36); SODIUM 134 mmol/l (137-146); TOTAL PROTEIN 7.6 g/dL (6.3-8.2)
[2023-09-22 14:58] LABS: BILIRUBIN, TOTAL 0.4 mg/dL (0.02-1.3)
[2023-09-23 05:47] VITALS: BP 128/80
[2023-09-23 06:06] LABS: BASO% 0.1 % (0-3); HEMATOCRIT 34.8 % (37.0-47.0); HEMOGLOBIN 10.7 g/dl (12.0-16.0); IMMATURE GRANULOCYTES 0.5 % (0.0-5.0); LYMPH% 9.6 % (15-41); MEAN CELL VOLUME 91.1 fL CALC (80.0-100.0); MEAN CORPUSCULAR HGB CONC 30.7 g/dL CAL (32.0-36.0); MONO% 2.1 % (2-13); NEUT# 7.37 thou/uL (2.00-7.15); NEUT% 87.7 % (42-76); RED BLOOD COUNT 3.82 mill/uL (4.20-5.60); RED CELL DISTRI WIDTH 13.3 % (11.5-15.5)
[2023-09-23 06:27] LABS: ALBUMIN 3.6 g/dL (3.2-5.0); ALKALINE PHOSPHATASE 74 u/l (38-126); ANION GAP 12 (6-22 (CALC)); BUN 15 mg/dL (8-23); BUN/CREATININE RATIO 35 (12-20 (CALC)); CARBON DIOXIDE 30 mmol/l (22-30); CHLORIDE 100 mmol/l (95-108); CREATININE 0.4 mg/dL (0.5-1.0); GFR FOR AFR.AMER. > 60 ML/MIN (>=60 (CALC)); GFR OTHER RACES > 60 ML/MIN (>=60 (CALC)); MAGNESIUM 2.1 mg/dL (1.6-2.3); POTASSIUM 4.2 mmol/l (3.5-5.1); SGOT/AST 27 u/l (9-36); SODIUM 137 mmol/l (137-146); TOTAL PROTEIN 6.2 g/dL (6.3-8.2)
[2023-09-23 06:30] LABS: BILIRUBIN, TOTAL 0.2 mg/dL (0.02-1.3)
[2023-09-23 08:06] VITALS: BP 156/84
[2023-09-23 11:58] VITALS: BP 158/77
[2023-09-23 16:24] VITALS: BP 129/73
[2023-09-23 21:38] VITALS: BP 141/72
[2023-09-24 05:01] LABS: BASO% 0.1 % (0-3); HEMATOCRIT 33.5 % (37.0-47.0); HEMOGLOBIN 10.3 g/dl (12.0-16.0); IMMATURE GRANULOCYTES 0.4 % (0.0-5.0); LYMPH% 7.8 % (15-41); MEAN CELL VOLUME 91.5 fL CALC (80.0-100.0); MEAN CORPUSCULAR HGB 28.1 pG CALC (26.0-32.0); MEAN CORPUSCULAR HGB CONC 30.7 g/dL CAL (32.0-36.0); MONO% 2.5 % (2-13); NEUT# 10.07 thou/uL (2.00-7.15); NEUT% 89.2 % (42-76); RED BLOOD COUNT 3.66 mill/uL (4.20-5.60); RED CELL DISTRI WIDTH 13.4 % (11.5-15.5)
[2023-09-24 05:16] LABS: ALBUMIN 3.3 g/dL (3.2-5.0); ALKALINE PHOSPHATASE 63 u/l (38-126); ANION GAP 11 (6-22 (CALC)); BILIRUBIN, TOTAL 0.2 mg/dL (0.02-1.3); BUN 15 mg/dL (8-23); BUN/CREATININE RATIO 39 (12-20 (CALC)); CARBON DIOXIDE 25 mmol/l (22-30); CHLORIDE 103 mmol/l (95-108); CREATININE 0.4 mg/dL (0.5-1.0); GFR FOR AFR.AMER. > 60 ML/MIN (>=60 (CALC)); GFR OTHER RACES > 60 ML/MIN (>=60 (CALC)); MAGNESIUM 2.2 mg/dL (1.6-2.3); POTASSIUM 4.5 mmol/l (3.5-5.1); SGOT/AST 25 u/l (9-36); SODIUM 135 mmol/l (137-146); TOTAL PROTEIN 5.8 g/dL (6.3-8.2)
[2023-09-24 06:07] VITALS: BP 168/82
[2023-09-24 08:39] VITALS: BP 158/69
[2023-09-24 10:33] VITALS: BP 145/70
[2023-09-24 14:46] VITALS: BP 155/70
[2023-09-24 19:20] VITALS: BP 158/81
[2023-09-24 23:12] VITALS: BP 132/64
[2023-09-25] VITALS (7 sets, daily range): BP systolic 147–176; BP diastolic 66–94
[2023-09-26] VITALS (8 sets, daily range): BP systolic 121–196; BP diastolic 58–103
[2023-09-26] MEDS ORDERED: PREDNISONE10 MG PO (11:44)
== END 2023-09-26 13:48 | disposition home or self-care (01) ==
LOC: ED 13:55 → ED-I 14:21 → ED 14:21 → MS2 16:54
PROVIDERS: Family Medicine; ADMIT Student in an Organized Health Care Education/Training Program; ATTEND Student in an Organized Health Care Education/Training Program
PROC: 3E02340 Introduction of Influenza Vaccine into Muscle, Percutaneous Approach (ICD-10-PCS; principal; 2023-09-24)
PROC: 3E0234Z Introduction of Serum, Toxoid and Vaccine into Muscle, Percutaneous Approach (ICD-10-PCS; 2023-09-24)
DX: J44.1 Chronic obstructive pulmonary disease with (acute) exacerbation (principal); J96.22 Acute and chronic respiratory failure with hypercapnia; J96.21 Acute and chronic respiratory failure with hypoxia; I10 Essential (primary) hypertension; G40.909 Epilepsy, unspecified, not intractable, without status epilepticus; E78.5 Hyperlipidemia, unspecified; F41.1 Generalized anxiety disorder; F32.A Depression, unspecified; Z23 Encounter for immunization; Z87.19 Personal history of other diseases of the digestive system; Z99.81 Dependence on supplemental oxygen; Z87.891 Personal history of nicotine dependence; Z87.01 Personal history of pneumonia (recurrent); Z20.822 Contact with and (suspected) exposure to COVID-19
CPT/HCPCS: J1650